=== PATIENT | female | born 1965 | race African-American/Black ===

== ENCOUNTER 2021-09-15 23:29 | Inpatient (IN) | payer OTHER, SELFPAY ==
[2021-09-15 23:26] VITALS: BP 180/91; PULSE 80
[2021-09-15 23:43] VITALS: BP 184/88; PULSE 92; RESP 16; TEMP 36.4; O2SAT 98
[2021-09-15 23:51] VITALS: BMI 32.8
--- NOTE | 2021-09-16 02:03 | PC.ADMIT ---
the patient is a 56 yr female transfer from [facility] emergency dept where she has been an active bed search. racquel has a hx of schizophrenia. she is a poor historian. the pt was admitted to ed on 09-08-21 after her home health nurse became concerned that racquel had an altered mental status and waas htn. her sbp was found to be in the 220s mmhg at that time. the pt also was confused and informed ems staff arriving at her home that someone had come into her house and killed her mother. in fact, pt lives alone with services. during her stay at [facility], pt has exhibited delusional thought content and has made several suicide ideation statements. racquel was evaluated by psychiatry who felt that she experiencing delirium superimposed on schizoaffective disorder. a ct of her brain was performed which showed no acute findings. racquel lives alone with services. she has a almonte order in place that was been renewed in August 2021. on arrival, racquel is recumbent on the ems stretcher. the c-v form is read to her and she verbally expresses a comprehension of the form. racquel can verbalize words which are totally out of context. i asked her what month we were in and she repeatly said the word pen. her affect is flat and withdrawn. with 2 assists she was assisted to the bathroom using a walker. her lower legs are weakened and her gait is unsteady. she will be a high fall risk. she has a pale complexion. she has 2 areas of skin break down which would be stage 2 of her left buttock and right buttock. resp effort is regular unlabored. 2 consecutive b/ps are in the 180'mmhg. protective services case worker gema brian notified of htn. clonidine 0.2 mg po given. abdomen protuberant/soft. pt has been incontinent of stool. perirectal care rendered. pt did void in the bathroom.
[2021-09-16] MEDS: cloNIDine HCL 0.2 MG TABLET PO (04:08)
[2021-09-16 08:40] VITALS: BP 131/67; PULSE 93; RESP 18; TEMP 36.6; O2SAT 97
[2021-09-16 08:47] LABS: Glucose, Whole Blood 140 mg/dL (60-115)
[2021-09-16] MEDS: Metoprolol Tartrate 50 MG TABLET PO (09:13)
[2021-09-16] MEDS: lisinopriL 40 MG TABLET PO (09:13)
[2021-09-16] MEDS: metFORMIN HCl 1,000 MG TABLET 1000 MG PO ×2 (09:13→17:51)
[2021-09-16] MEDS: Atorvastatin Calcium 20 MG TABLET PO (09:13)
[2021-09-16] MEDS: Perphenazine 8 MG TABLET PO (09:13)
[2021-09-16] MEDS: Aspirin Enteric Coated 81 MG TABLET.DR PO (09:14)
--- NOTE | 2021-09-16 11:05 | HO.PM.IMCN ---
History of Present Illness Data of Consult Service Date: 09/16/21 Primary Care Provider: Gregoria Chu NP HPI Reason for consult: Diabetes, HTN management. 56 year old female with Diabetes insulin dependent, HTN on Lisinopril and Metoprolol, HLD controlled with Lipitor and Schizophrenia. He is admitted from [facility] to Psych unit here for decompensation with psychosis and presently parnoid, confused and Psychtic thought. He is a rather unreliable historian at this moment. He voices no acute medical issues however Review of Systems Review of Systems: denies chest pain, no sob. Unable to get additional info due to psychotic state/ [facility] Medical History (Updated 09/16/21 @ 11:12 by Adalid Valerio MD) Diabetes HLD (hyperlipidemia) HTN (hypertension) Schizophrenia Social History Currently Displaying Signs/Symptoms of Drug Intoxication Withdrawal: No Advance Directives: No Advance Directives Information Provided: No Do you have thoughts of harming others: Vague Do you have a plan to hurt others: No Plan Meds Allergies Allergy/AdvReac Type Severity Reaction Status Date / Time Sulfa (Sulfonamide Allergy Unknown UNKNOWN Verified 09/15/21 23:47 Antibiotics) [SULFA (SULFONAMIDE ANTIBIOTICS)] Active Medications: Current Medications Acetaminophen (Acetaminophen 325 Mg Tablet) 650 mg PO Q6H PRN PRN Reason: Headache/Pain Mild Scale (1-3) Al Hydroxide/Mg Hydroxide (Magnesium Hydrox/Alum Hydrox 30 Ml Oral.Susp) 30 ml PO Q6H PRN PRN Reason: Heartburn/Nausea Aspirin (Aspirin Enteric Coated 81 Mg Tablet.) 81 mg PO DAILY [facility] Last Admin: 09/16/21 09:14 Dose: 81 mg Documented by: Atorvastatin Calcium (Atorvastatin Calcium 20 Mg Tablet) 20 mg PO DAILY [facility] Last Admin: 09/16/21 09:13 Dose: 20 mg Documented by: Benztropine Mesylate (Benztropine Mesylate 0.5 Mg Tablet) 0.5 mg PO BEDTIME [facility] Clozapine (Clozapine 100 Mg Tablet) 300 mg PO BEDTIME [facility] Divalproex Sodium (Divalproex Sodium Er 250 Mg Tab.Er.24h) 750 mg PO BEDTIME [facility] Hydroxyzine HCl (Hydroxyzine Hcl 25 Mg Tablet) 25 mg PO Q6H PRN PRN Reason: Anxiety Insulin Glargine (Insulin Glargine,Hum.Rec.Anlog 100 Unit/Ml 10 Ml Vial) 50 unit SUBCUT BEDTIME [facility] Lisinopril (Lisinopril 40 Mg Tablet) 40 mg PO DAILY [facility]; Protocol Last Admin: 09/16/21 09:13 Dose: 40 mg Documented by: Magnesium Hydroxide (Milk Of Magnesia 30 Ml Oral.Susp) 30 ml PO DAILY PRN PRN Reason: Constipation Metformin HCl (Metformin Hcl 1,000 Mg Tablet) 1,000 mg PO BIDWM [facility] Last Admin: 09/16/21 09:13 Dose: 1,000 mg Documented by: Metoprolol Tartrate (Metoprolol Tartrate 100 Mg Tablet) 100 mg PO BEDTIME [facility]; Protocol Metoprolol Tartrate (Metoprolol Tartrate 50 Mg Tablet) 50 mg PO DAILY [facility]; Protocol Last Admin: 09/16/21 09:13 Dose: 50 mg Documented by: Oxybutynin Chloride (Oxybutynin Chloride Er 5 Mg Tab.Er.24) 5 mg PO DAILY [facility] Last Admin: 09/16/21 09:13 Dose: 5 mg Documented by: Perphenazine (Perphenazine 8 Mg Tablet) 8 mg PO DAILY [facility] Last Admin: 09/16/21 09:13 Dose: 8 mg Documented by: Polyethylene Glycol (Polyethylene Glycol 3350 17 Gm Powd.Pack) 17 gm PO DAILY [facility] Last Admin: 09/16/21 09:17 Dose: Not Given Documented by: Trazodone HCl (Trazodone Hcl 50 Mg Tablet) 50 mg PO BEDTIME PRN PRN Reason: Insomnia Home Medications Medication Instructions Recorded Confirmed Last Taken Type aspirin 81 mg tablet,delayed 81 mg PO DAILY 09/16/21 09/16/21 09/15/21 08:25 History release atorvastatin 20 mg tablet 20 mg PO DAILY 09/16/21 09/16/21 09/15/21 08:25 History benztropine 0.5 mg tablet 0.5 mg PO BEDTIME 09/16/21 09/16/21 09/15/21 21:25 History clozapine 200 mg tablet 300 mg PO BEDTIME 09/16/21 09/16/21 09/15/21 21:25 History divalproex 500 mg PO BEDTIME 09/16/21 09/16/21 09/15/21 21:25 History divalproex 250 mg tablet,extended 250 mg PO BEDTIME 09/16/21 09/16/2122 21:25 History release 24 hr insulin glargine 50 unit SUBCUT DAILY 09/16/21 09/16/21 09/09/21 10:15 History 50 lisinopril 40 mg tablet (Zestril) 40 mg PO DAILY 09/16/21 09/16/21 09/15/21 08:25 History metformin 1,000 mg tablet 1,000 mg PO BID 09/16/21 09/16/21 09/15/21 17:15 History metoprolol tartrate 100 mg PO BEDTIME 09/16/21 09/16/21 09/15/21 21:25 History metoprolol tartrate 50 mg tablet 50 mg PO DAILY 09/16/21 09/16/21 09/15/21 08:25 History oxybutynin chloride 5 mg tablet 5 mg PO DAILY 09/16/21 09/16/21 09/15/21 08:25 History perphenazine 8 mg tablet 8 mg PO DAILY 09/16/21 09/16/21 09/15/21 08:25 History polyethylene glycol 3350 17 gram 17 g PO DAILY 09/16/21 09/16/21 09/15/21 08:25 History oral powder packet Physical Exam Vital Signs and Narrative: Vital Signs: Last Vital Signs Temp 97.5 F 09/15/21 23:43 Pulse 92 09/15/21 23:43 Resp 16 09/15/21 23:43 BP 184/88 H 09/15/21 23:43 Pulse Ox 98 09/15/21 23:43 BMI result Body Mass Index 32.8 Const: Other: Constitutional: Alert, in no distress, overweight. Mental Status: Oriented to person, place and time. Eyes: Pupils are equal, round and reactive to light. Ear, Nose and Throat: Oropharynx clear, mucous membranes moist. Ears and nose without eformities. Trachea midline. Respiratory: Clear to auscultation. No wheezing, rales or rhonchi. Cardiovascular: S1 S2 regular. No murmurs, rubs or gallops. Gastrointestinal: Abdomen soft, non-tender, non-distended. Normal bowel sounds.? Neurologic: Cranial nerves II-XII grossly intact. No focal neurological deficits. Moves all extremities spontaneously.?Oriented to self only Skin: No rashes or lesions.? Musculoskeletal: No cyanosis or clubbing. Psychiatric: Normal mood and affect? Results Labs Labs: Laboratory Results - last 24 hr 09/16/21 08:42 POC Glucose 140 H Assessment and Plan (1) Schizophrenia: Status: Acute (2) HLD (hyperlipidemia): Status: Acute (3) Diabetes: Status: Acute (4) HTN (hypertension): Status: Acute Plan 56 year old male with HTN, HLD, diabetes, Schizophrenia here with active Psychosis 1/HTN--continue Lisinopril and Metorpool and follow blood pressure 2/ Diabetes --continue Metfromin, Lantus and add SSI 3/HLD--Lipitor 4/Schizophrenia/Psychosis--management by Psych Will follow on PRN basis
[2021-09-16 11:56] LABS: Glucose, Whole Blood 100 mg/dL (60-115)
--- NOTE | 2021-09-16 15:27 | P.HPPS_ITS ---
HPI Date of Service: 09/16/21 Chief Complaint: schizophrenia Sources of Information: patient interviewed and chart reviewed HPI Subjective Notes: Peoples Order and Conditional Voluntary Narrative: patient was at [facility] prior to transfer to [place] for psychiatric admission. NOted Peoples order in place. Blood sugar levels have been varied and noted hospitalist evaluation. Does have stage II pressure sores on buttock areas and same being dressed. Self-care poor and incontinence. Patient today reports feeling like she is shrinking. Then stated rodrick I am not. Did endorse hallucinations but then making illogical statements about being at home 1 month ago and that she has been traveling in circles since. Very concrete and guarded throughout interview. Reports living alone. Reports having visiting nurse services. Reports being adherent with medications also monthly blood draws for clozapine. Was unable to explain how medications might be helpful or why they were being prescribed. How she got to the ED at [facility] reports somebody must have called and she did not know. Reported feeling safe in the hospital. Adamantly denies suicidal thoughts or history of suicide attempts. Regarding substances reported 21 years of sobriety from crack cocaine. 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 Unable to clarify who her psychiatric service providers were. Noted medication list from [facility] included metoprolol 100 mg, perphenazine 8 mg, Clozaril 300 mg at bedtime, Depakote 750 mg at bedtime, Cogentin 0.5 mg at bedtime, aspirin 81 mg, lisinopril 40 mg daily, metformin 1000 mg twice daily, insulin glargine 50 mg daily Lab work and CT scan unremarkable Past Psychiatric History: See above Medical Evaluation Reviewed: Yes [facility] Medical History (Updated 09/16/21 @ 11:12 by Adalid Valerio MD) Diabetes HLD (hyperlipidemia) HTN (hypertension) Schizophrenia Social History: lives alone. May have visiting nurse services. Substance History: Twenty-one years sober from crack cocaine Diagnostics Vital Signs (24Hr): Vital Signs - 24 hr 09/15/21 23:26 09/15/21 23:43 09/16/21 08:40 Temperature 97.5 F 97.9 F Pulse Rate 80 92 93 Respiratory Rate 16 18 Blood Pressure 180/91 H 184/88 H 131/67 Pulse Oximetry 98 97 BMI result Body Mass Index 32.8 Labs Labs: Laboratory Results - last 48 hr 09/16/21 09/16/21 08:42 11:52 POC Glucose 140 H 100 Meds/Allergies Meds Home Medications Acetaminophen (Acetaminophen 325 Mg Tablet) 650 mg PO Q6H PRN PRN Reason: Headache/Pain Mild Scale (1-3) Al Hydroxide/Mg Hydroxide (Magnesium Hydrox/Alum Hydrox 30 Ml Oral.Susp) 30 ml PO Q6H PRN PRN Reason: Heartburn/Nausea Aspirin (Aspirin Enteric Coated 81 Mg Tablet.) 81 mg PO DAILY [facility] Last Admin: 09/16/21 09:14 Dose: 81 mg Documented by: Atorvastatin Calcium (Atorvastatin Calcium 20 Mg Tablet) 20 mg PO DAILY [facility] Last Admin: 09/16/21 09:13 Dose: 20 mg Documented by: Benztropine Mesylate (Benztropine Mesylate 0.5 Mg Tablet) 0.5 mg PO BEDTIME [facility] Clozapine (Clozapine 100 Mg Tablet) 300 mg PO BEDTIME [facility] Divalproex Sodium (Divalproex Sodium Er 250 Mg Tab.Er.24h) 750 mg PO BEDTIME [facility] Hydroxyzine HCl (Hydroxyzine Hcl 25 Mg Tablet) 25 mg PO Q6H PRN PRN Reason: Anxiety Insulin Glargine (Insulin Glargine,Hum.Rec.Anlog 100 Unit/Ml 10 Ml Vial) 50 unit SUBCUT BEDTIME [facility] Insulin Human Lispro (Insulin Lispro 100 Unit/Ml 3 Ml Vial) 0 unit SUBCUT QIDACHS [facility]; Protocol Last Admin: 09/16/21 12:42 Dose: Not Given Documented by: Lisinopril (Lisinopril 40 Mg Tablet) 40 mg PO DAILY [facility]; Protocol Last Admin: 09/16/21 09:13 Dose: 40 mg Documented by: Magnesium Hydroxide (Milk Of Magnesia 30 Ml Oral.Susp) 30 ml PO DAILY PRN PRN Reason: Constipation Metformin HCl (Metformin Hcl 1,000 Mg Tablet) 1,000 mg PO BIDWM [facility] Last Admin: 09/16/21 09:13 Dose: 1,000 mg Documented by: Metoprolol Tartrate (Metoprolol Tartrate 100 Mg Tablet) 100 mg PO BEDTIME [facility]; Protocol Metoprolol Tartrate (Metoprolol Tartrate 50 Mg Tablet) 50 mg PO DAILY [facility]; Protocol Last Admin: 09/16/21 09:13 Dose: 50 mg Documented by: Oxybutynin Chloride (Oxybutynin Chloride Er 5 Mg Tab.Er.24) 5 mg PO DAILY [facility] Last Admin: 09/16/21 09:13 Dose: 5 mg Documented by: Perphenazine (Perphenazine 8 Mg Tablet) 8 mg PO DAILY [facility] Last Admin: 09/16/21 09:13 Dose: 8 mg Documented by: Polyethylene Glycol (Polyethylene Glycol 3350 17 Gm Powd.Pack) 17 gm PO DAILY [facility] Last Admin: 09/16/21 09:17 Dose: Not Given Documented by: Trazodone HCl (Trazodone Hcl 50 Mg Tablet) 50 mg PO BEDTIME PRN PRN Reason: Insomnia Allergies Allergies Allergy/AdvReac Type Severity Reaction Status Date / Time Sulfa (Sulfonamide Allergy Unknown UNKNOWN Verified 09/15/21 23:47 Antibiotics) [SULFA (SULFONAMIDE ANTIBIOTICS)] Mental Status Exam Mental Status Exam Narrative: in bed. Hospital clothing. Self-care is limited. Flat affect. Is alert and oriented but internally preoccupied and guarded. No SI or HI evident. Insight and judgment appear limited Assessment & Plan Assessment & Plan (1) Schizophrenia: Status: Acute Code(s): F20.9 - Schizophrenia, unspecified Assessment and Plan: presents with hallucinations and delusions and decompensation inability to care for self. Unclear circumstances around same. Continue home medications, Including clozapine 300 mg, perphenazine 8 mg daily, Depakote 750 mg at bedtime and Cogentin 0.5. Attempt to gather collateral from community providers during week days with primary team. Blood sugar management as per hospitalist evaluation. Patient educated on: diagnosis, therapeutic strategies and medical condition Reason for continued inpatient stay Substantial Risk for: inability to function
[2021-09-16 16:47] LABS: Cholesterol 121 mg/dL; HDL Cholesterol 30 mg/dL; LDL Cholesterol Calculated 69 mg/dl; Magnesium 1.6 mg/dL (1.6-2.6); Triglycerides 114 mg/dL
[2021-09-16 16:51] LABS: Estimated Average Glucose 120 mg/dL; Hemoglobin A1c % 5.8 %
[2021-09-16 17:00] LABS: Glucose, Whole Blood 111 mg/dL (60-115)
[2021-09-16 17:07] LABS: Thyroid Stimulating Hormone 1.94 uIU/mL (0.32-4.0)
[2021-09-16 18:00] VITALS: BP 146/68; PULSE 90; RESP 16; TEMP 36.1; O2SAT 100
[2021-09-16 20:45] LABS: Glucose, Whole Blood 113 mg/dL (60-115)
[2021-09-16] MEDS: cloZAPine 100 MG TABLET 300 MG PO (21:01)
[2021-09-16] MEDS: Benztropine Mesylate 0.5 MG TABLET PO (21:02)
[2021-09-16] MEDS: Divalproex Sodium ER 250 MG TAB.ER.24H 750 MG PO (21:02)
[2021-09-16] MEDS: Insulin Glargine,Hum.rec.anlog 100 UNIT/ML 10 ML VIAL 50 UNIT SUBCUT (21:04)
[2021-09-16] MEDS: Metoprolol Tartrate 100 MG TABLET PO (21:19)
--- NOTE | 2021-09-16 21:44 | PC.NURSE ---
pt has experienced multiple episodes of fecal incontinence. she has been resistant to perirectal hygiene care. she has been agitated and delusional at times. while seated on the toilet, she is having one way conversation with her friend . she has made sexual overtures to male staff. despite resistance from pt, local care has been repeatedly rendered. she has taken a defensive posture with clenched fists and screaming at staff. with calm direct reassurance, pt settled in and hopefully will sleep. her poc is 114. she has been given her scheduled lantus insulin 50 units sc. she has refused snack. pts b/p 146/68. will monitor for any signs of hypoglycemia.
[2021-09-17 08:00] VITALS: BP 141/75; PULSE 80; RESP 16; TEMP 35.8; O2SAT 97
[2021-09-17 08:16] LABS: Glucose, Whole Blood 43 mg/dL (60-115)
[2021-09-17] MEDS: Perphenazine 8 MG TABLET PO (08:28)
[2021-09-17] MEDS: Metoprolol Tartrate 50 MG TABLET PO (08:28)
[2021-09-17] MEDS: Atorvastatin Calcium 20 MG TABLET PO (08:28)
[2021-09-17] MEDS: Aspirin Enteric Coated 81 MG TABLET.DR PO (08:29)
[2021-09-17] MEDS: lisinopriL 40 MG TABLET PO (08:29)
[2021-09-17 08:46] LABS: Glucose, Whole Blood 78 mg/dL (60-115)
--- NOTE | 2021-09-17 08:53 | PC.NURSE ---
Pt signed a three day notice today, stated I don't need to be here, I want to go home .
[2021-09-17] MEDS: metFORMIN HCl 1,000 MG TABLET 1000 MG PO ×2 (09:20→17:19)
--- NOTE | 2021-09-17 11:52 | HO.PSYCHPN ---
Subjective Subjective Date of Service: 09/17/21 Reason For Visit: schizophrenia Subjective Notes: 3 Day Medical Problems Affecting Mental Status: No Interim History: Discussed with nursing. Internally preoccupied. Loose stool at night. Upset at diabetic diet. Submitted 3 day notice. Today with investment underwriter is on the unit phone stating she is listening a recording of herself. Reports she wants discharge so she can go to [place] and have a meal. L[employer] preoccupation and stating family are the devil and wants discharge within one week. Medication Compliance: Yes Side effects from medications: No Attending Groups: No Review of Systems Acute medical concerns: No Review of Systems Review of Systems unremarkable Mental Status Exam Mental Status Exam Narrative: in day area.? Hospital clothing.? Self-care is limited.? ?Elated affect and some irritability. Is alert and oriented but internally preoccupied and guarded. ? No SI or HI evident.? Insight and judgment appear limited Diagnostics Vital Signs (24Hr): Vital Signs - 24 hr 09/16/21 18:00 09/17/21 08:00 Temperature 97 F 96.4 F L Pulse Rate 90 80 Respiratory Rate 16 16 Blood Pressure 146/68 H 141/75 H Pulse Oximetry 100 97 BMI result Body Mass Index 32.8 Labs Labs: Laboratory Results - last 48 hr 09/16/21 09/16/21 09/16/21 08:42 11:52 16:22 POC Glucose 140 H 100 Estimat Average Glucose Hemoglobin A1c % Magnesium 1.6 Triglycerides 114 Cholesterol 121 LDL Cholesterol, Calc 69 HDL Cholesterol 30 TSH 1.94 09/16/21 09/16/21 09/16/21 16:22 16:55 20:34 POC Glucose 111 113 Estimat Average Glucose 120 Hemoglobin A1c % 5.8 Magnesium Triglycerides Cholesterol LDL Cholesterol, Calc HDL Cholesterol TSH 09/17/21 09/17/21 08:10 08:41 POC Glucose 43 L* 78 Estimat Average Glucose Hemoglobin A1c % Magnesium Triglycerides Cholesterol LDL Cholesterol, Calc HDL Cholesterol TSH Medications Medications Current Medications Acetaminophen (Acetaminophen 325 Mg Tablet) 650 mg PO Q6H PRN PRN Reason: Headache/Pain Mild Scale (1-3) Al Hydroxide/Mg Hydroxide (Magnesium Hydrox/Alum Hydrox 30 Ml Oral.Susp) 30 ml PO Q6H PRN PRN Reason: Heartburn/Nausea Aspirin (Aspirin Enteric Coated 81 Mg Tablet.) 81 mg PO DAILY [facility] Last Admin: 09/17/21 08:29 Dose: 81 mg Documented by: Atorvastatin Calcium (Atorvastatin Calcium 20 Mg Tablet) 20 mg PO DAILY [facility] Last Admin: 09/17/21 08:28 Dose: 20 mg Documented by: Benztropine Mesylate (Benztropine Mesylate 0.5 Mg Tablet) 0.5 mg PO BEDTIME [facility] Last Admin: 09/16/21 21:02 Dose: 0.5 mg Documented by: Clozapine (Clozapine 100 Mg Tablet) 300 mg PO BEDTIME [facility] Last Admin: 09/16/21 21:01 Dose: 300 mg Documented by: Divalproex Sodium (Divalproex Sodium Er 250 Mg Tab.Er.24h) 750 mg PO BEDTIME [facility] Last Admin: 09/16/21 21:02 Dose: 750 mg Documented by: Hydroxyzine HCl (Hydroxyzine Hcl 25 Mg Tablet) 25 mg PO Q6H PRN PRN Reason: Anxiety Insulin Glargine (Insulin Glargine,Hum.Rec.Anlog 100 Unit/Ml 10 Ml Vial) 50 unit SUBCUT BEDTIME [facility] Last Admin: 09/16/21 21:04 Dose: 50 unit Documented by: Insulin Human Lispro (Insulin Lispro 100 Unit/Ml 3 Ml Vial) 0 unit SUBCUT QIDACHS [facility]; Protocol Last Admin: 09/17/21 08:31 Dose: Not Given Documented by: Lisinopril (Lisinopril 40 Mg Tablet) 40 mg PO DAILY [facility]; Protocol Last Admin: 09/17/21 08:29 Dose: 40 mg Documented by: Magnesium Hydroxide (Milk Of Magnesia 30 Ml Oral.Susp) 30 ml PO DAILY PRN PRN Reason: Constipation Metformin HCl (Metformin Hcl 1,000 Mg Tablet) 1,000 mg PO BIDWM [facility] Last Admin: 09/17/21 09:20 Dose: 1,000 mg Documented by: Metoprolol Tartrate (Metoprolol Tartrate 100 Mg Tablet) 100 mg PO BEDTIME [facility]; Protocol Last Admin: 09/16/21 21:19 Dose: 100 mg Documented by: Metoprolol Tartrate (Metoprolol Tartrate 50 Mg Tablet) 50 mg PO DAILY [facility]; Protocol Last Admin: 09/17/21 08:28 Dose: 50 mg Documented by: Oxybutynin Chloride (Oxybutynin Chloride Er 5 Mg Tab.Er.24) 5 mg PO DAILY [facility] Last Admin: 09/17/21 08:29 Dose: 5 mg Documented by: Perphenazine (Perphenazine 8 Mg Tablet) 8 mg PO DAILY [facility] Last Admin: 09/17/21 08:28 Dose: 8 mg Documented by: Polyethylene Glycol (Polyethylene Glycol 3350 17 Gm Powd.Pack) 17 gm PO DAILY [facility] Last Admin: 09/17/21 09:28 Dose: Not Given Documented by: Trazodone HCl (Trazodone Hcl 50 Mg Tablet) 50 mg PO BEDTIME PRN PRN Reason: Insomnia Allergies Allergies Allergy/AdvReac Type Severity Reaction Status Date / Time Sulfa (Sulfonamide Allergy Unknown UNKNOWN Verified 09/15/21 23:47 Antibiotics) [SULFA (SULFONAMIDE ANTIBIOTICS)] Assessment & Plan Assessment & Plan (1) Schizophrenia: Status: Acute Code(s): F20.9 - Schizophrenia, unspecified Assessment and Plan: presents with hallucinations and delusions and decompensation inability to care for self. Unclear circumstances around same. Continue home medications, Including clozapine 300 mg, perphenazine 8 mg daily, Depakote 750 mg at bedtime and Cogentin 0.5. Attempt to gather collateral from community providers during week days with primary team. Blood sugar management as per hospitalist evaluation. 09/17: no changes to current home meds. Review after collateral from community providers I spent minutes with the patient and/or on the patient floor today, greater than?50% of which was spent counseling/coordinating care. Reason for contiued inpatient stay Substantial Risk for: inability to function
[2021-09-17 12:04] LABS: Glucose, Whole Blood 121 mg/dL (60-115)
[2021-09-17] MEDS: Loperamide HCl 2 MG CAPSULE 4 MG PO (12:46)
[2021-09-17] MEDS: Loperamide HCl 2 MG CAPSULE PO ×2 (16:09→21:28)
[2021-09-17 17:35] LABS: Glucose, Whole Blood 79 mg/dL (60-115)
[2021-09-17 20:25] LABS: Glucose, Whole Blood 105 mg/dL (60-115)
[2021-09-17] MEDS: Insulin Glargine,Hum.rec.anlog 100 UNIT/ML 10 ML VIAL 50 UNIT SUBCUT (20:39)
[2021-09-17] MEDS: Metoprolol Tartrate 100 MG TABLET PO (20:40)
[2021-09-17] MEDS: Divalproex Sodium ER 250 MG TAB.ER.24H 750 MG PO (20:41)
[2021-09-17] MEDS: Benztropine Mesylate 0.5 MG TABLET PO (20:41)
[2021-09-17] MEDS: cloZAPine 100 MG TABLET 300 MG PO (20:41)
[2021-09-17 20:50] VITALS: BP 117/65; PULSE 93; RESP 16; TEMP 36.3; O2SAT 99
[2021-09-18 07:05] LABS: Glucose, Whole Blood 28 mg/dL (60-115)
[2021-09-18] MEDS: Loperamide HCl 2 MG CAPSULE PO (07:42)
[2021-09-18 08:00] VITALS: BP 145/107; PULSE 88; RESP 16; TEMP 35.8; O2SAT 98
[2021-09-18 08:03] LABS: Glucose, Whole Blood 99 mg/dL (60-115)
[2021-09-18 08:08] LABS: Neut%MD 75.1 %; Neutrophils Absolute Auto 10.3 x10*3/uL (2.0-8.3); WBCANC 13.7 X10*3/uL
[2021-09-18] MEDS: Atorvastatin Calcium 20 MG TABLET PO (08:26)
[2021-09-18] MEDS: lisinopriL 40 MG TABLET PO (08:26)
[2021-09-18] MEDS: Aspirin Enteric Coated 81 MG TABLET.DR PO (08:26)
[2021-09-18] MEDS: Metoprolol Tartrate 50 MG TABLET PO (08:26)
[2021-09-18] MEDS: metFORMIN HCl 1,000 MG TABLET 1000 MG PO ×2 (08:26→18:03)
[2021-09-18] MEDS: Perphenazine 8 MG TABLET PO (08:26)
[2021-09-18 10:39] LABS: Vitamin B12 307 pg/mL (200-900)
[2021-09-18 12:13] LABS: Glucose, Whole Blood 121 mg/dL (60-115)
[2021-09-18 13:14] VITALS: BMI 32.8
--- NOTE | 2021-09-18 14:53 | HO.PSYCHPN ---
Subjective Subjective Date of Service: 09/18/21 Reason For Visit: schizophrenia Subjective Notes: Conditional Voluntary and 3 Day Interim History: The nursing staff reported the patient signed a 3 day notice yesterday in the afternoon. The patient reports chronic auditory hallucinations and she stated that she is paranoid against the worker that came to her home and brought her into the hospital by ambulance. Today, the nursing staff reported the patient had diarrhea and her fasting blood sugars were very low. On interview the patient reported that her blood sugar went down, she recognized me since I used to treat her as an outpatient several years ago and she stated that she is taking her medications and she wants to go back home. She gave us permission to contact her [facility] case worker, [facility] and other outpatient providers. She wants to be discharged as soon as possible, she states that she is fully compliant with her treatment. Mental Status Exam Mental Status Exam Patient Appearance: Appropriate Patient Orientation: Person and Situation Level of Consciousness: Awake Patient Behavior: Talkative and Cooperative Mood Description: Cheerful and Anxious Affect Description: Labile Patient Cognition Impaired: No Ability to Follow Directions: Good Speech Pattern: Clear Hallucinations: Auditory ( Chronic auditory hallucinations with derogatory content) Delusions: Paranoid Ideation Thought Process: Distracted Thought Content: positive for [place] and positive for Circumstantial Judgement: Fair Diagnostics Vital Signs (24Hr): Vital Signs - 24 hr 09/17/21 20:50 09/18/21 08:00 Temperature 97.4 F 96.5 F L Pulse Rate 93 88 Respiratory Rate 16 16 Blood Pressure 117/65 145/107 H Pulse Oximetry 99 98 BMI result Body Mass Index 32.8 Labs Labs: Laboratory Results - last 48 hr 09/16/21 09/16/21 09/16/21 16:22 16:22 16:22 Absolute Neuts (auto) POC Glucose Estimat Average Glucose 120 Hemoglobin A1c % 5.8 Magnesium 1.6 Triglycerides 114 Cholesterol 121 LDL Cholesterol, Calc 69 HDL Cholesterol 30 Vitamin B12 307 Folate 12.0 TSH 1.94 09/16/21 09/16/21 09/17/21 16:55 20:34 08:10 Absolute Neuts (auto) POC Glucose 111 113 43 L* Estimat Average Glucose Hemoglobin A1c % Magnesium Triglycerides Cholesterol LDL Cholesterol, Calc HDL Cholesterol Vitamin B12 Folate TSH 09/17/21 09/17/21 09/17/21 08:41 12:00 17:21 Absolute Neuts (auto) POC Glucose 78 121 H 79 Estimat Average Glucose Hemoglobin A1c % Magnesium Triglycerides Cholesterol LDL Cholesterol, Calc HDL Cholesterol Vitamin B12 Folate TSH 09/17/21 09/18/21 09/18/21 20:17 06:58 07:42 Absolute Neuts (auto) POC Glucose 105 28 L* 99 Estimat Average Glucose Hemoglobin A1c % Magnesium Triglycerides Cholesterol LDL Cholesterol, Calc HDL Cholesterol Vitamin B12 Folate TSH 09/18/21 09/18/21 07:58 12:09 Absolute Neuts (auto) 10.3 H POC Glucose 121 H Estimat Average Glucose Hemoglobin A1c % Magnesium Triglycerides Cholesterol LDL Cholesterol, Calc HDL Cholesterol Vitamin B12 Folate TSH Medications Medications Current Medications Acetaminophen (Acetaminophen 325 Mg Tablet) 650 mg PO Q6H PRN PRN Reason: Headache/Pain Mild Scale (1-3) Al Hydroxide/Mg Hydroxide (Magnesium Hydrox/Alum Hydrox 30 Ml Oral.Susp) 30 ml PO Q6H PRN PRN Reason: Heartburn/Nausea Aspirin (Aspirin Enteric Coated 81 Mg Tablet.) 81 mg PO DAILY [facility] Last Admin: 09/18/21 08:26 Dose: 81 mg Documented by: Atorvastatin Calcium (Atorvastatin Calcium 20 Mg Tablet) 20 mg PO DAILY [facility] Last Admin: 09/18/21 08:26 Dose: 20 mg Documented by: Benztropine Mesylate (Benztropine Mesylate 0.5 Mg Tablet) 0.5 mg PO BEDTIME [facility] Last Admin: 09/17/21 20:41 Dose: 0.5 mg Documented by: Clozapine (Clozapine 100 Mg Tablet) 300 mg PO BEDTIME [facility] Last Admin: 09/17/21 20:41 Dose: 300 mg Documented by: Divalproex Sodium (Divalproex Sodium Er 250 Mg Tab.Er.24h) 750 mg PO BEDTIME [facility] Last Admin: 09/17/21 20:41 Dose: 750 mg Documented by: Hydroxyzine HCl (Hydroxyzine Hcl 25 Mg Tablet) 25 mg PO Q6H PRN PRN Reason: Anxiety Insulin Glargine (Insulin Glargine,Hum.Rec.Anlog 100 Unit/Ml 10 Ml Vial) 50 unit SUBCUT BEDTIME [facility] Last Admin: 09/17/21 20:39 Dose: 50 unit Documented by: Insulin Human Lispro (Insulin Lispro 100 Unit/Ml 3 Ml Vial) 0 unit SUBCUT QIDACHS [facility]; Protocol Last Admin: 09/18/21 13:03 Dose: Not Given Documented by: Lisinopril (Lisinopril 40 Mg Tablet) 40 mg PO DAILY [facility]; Protocol Last Admin: 09/18/21 08:26 Dose: 40 mg Documented by: Loperamide HCl (Loperamide Hcl 2 Mg Capsule) 2 mg PO Q4H PRN PRN Reason: Diarrhea Last Admin: 09/18/21 07:42 Dose: 2 mg Documented by: Magnesium Hydroxide (Milk Of Magnesia 30 Ml Oral.Susp) 30 ml PO DAILY PRN PRN Reason: Constipation Metformin HCl (Metformin Hcl 1,000 Mg Tablet) 1,000 mg PO BIDWM [facility] Last Admin: 09/18/21 08:26 Dose: 1,000 mg Documented by: Metoprolol Tartrate (Metoprolol Tartrate 100 Mg Tablet) 100 mg PO BEDTIME [facility]; Protocol Last Admin: 09/17/21 20:40 Dose: 100 mg Documented by: Metoprolol Tartrate (Metoprolol Tartrate 50 Mg Tablet) 50 mg PO DAILY [facility]; Protocol Last Admin: 09/18/21 08:26 Dose: 50 mg Documented by: Oxybutynin Chloride (Oxybutynin Chloride Er 5 Mg Tab.Er.24) 5 mg PO DAILY [facility] Last Admin: 09/18/21 08:26 Dose: 5 mg Documented by: Perphenazine (Perphenazine 8 Mg Tablet) 8 mg PO DAILY [facility] Last Admin: 09/18/21 08:26 Dose: 8 mg Documented by: Polyethylene Glycol (Polyethylene Glycol 3350 17 Gm Powd.Pack) 17 gm PO DAILY [facility] Last Admin: 09/18/21 08:53 Dose: Not Given Documented by: Trazodone HCl (Trazodone Hcl 50 Mg Tablet) 50 mg PO BEDTIME PRN PRN Reason: Insomnia Allergies Allergies Allergy/AdvReac Type Severity Reaction Status Date / Time Sulfa (Sulfonamide Allergy Unknown UNKNOWN Verified 09/15/21 23:47 Antibiotics) [SULFA (SULFONAMIDE ANTIBIOTICS)] Assessment & Plan Assessment & Plan (1) Schizophrenia: Status: Acute Code(s): F20.9 - Schizophrenia, unspecified Assessment and Plan: presents with hallucinations and delusions and decompensation inability to care for self. Unclear circumstances around same. Continue home medications, Including clozapine 300 mg, perphenazine 8 mg daily, Depakote 750 mg at bedtime and Cogentin 0.5. Attempt to gather collateral from community providers during week days with primary team. Blood sugar management as per hospitalist evaluation. Plan The patient is an adult female who looks older than her stated age with a long history of schizophrenia, with several ancillary services such as [facility] case managing services, outpatient services, living independently with several as [facility] services. She was admitted for unclear reasons due to his chronic paranoia and chronic auditory hallucinations. plan 1. Depakote level, basic metabolic panel another lab for. 2. Consult to hospitalist to manage his diabetes and hypoglycemia. 3. Gather collateral information. I spent __20____ minutes with the patient and/or on the patient floor today, greater than?50% of which was spent counseling/coordinating care. Informed Consent: understands Reason for contiued inpatient stay Substantial Risk for: inability to function, rapid decompensation and med/psych decompensation
--- NOTE | 2021-09-18 15:10 | PM.EVENT ---
Event Note Date of Service: 09/18/21 Event Note: noted to have AM hypoglycemia, glargine decreased from 50 units to 25 units at bedtime, continue to monitor pocs
[2021-09-18 17:04] LABS: Glucose, Whole Blood 65 mg/dL (60-115)
[2021-09-18 21:25] LABS: Glucose, Whole Blood 71 mg/dL (60-115)
[2021-09-18] MEDS: Divalproex Sodium ER 250 MG TAB.ER.24H 750 MG PO (21:35)
[2021-09-18] MEDS: cloZAPine 100 MG TABLET 300 MG PO (21:35)
[2021-09-18] MEDS: Metoprolol Tartrate 100 MG TABLET PO (21:35)
[2021-09-18] MEDS: Benztropine Mesylate 0.5 MG TABLET PO (21:41)
[2021-09-19 06:00] VITALS: BP 165/84; PULSE 91; RESP 18; TEMP 36.1; O2SAT 99
[2021-09-19 07:05] LABS: Glucose, Whole Blood 153 mg/dL (60-115)
[2021-09-19] MEDS: metFORMIN HCl 1,000 MG TABLET 1000 MG PO (07:43)
[2021-09-19] MEDS: lisinopriL 40 MG TABLET PO (07:44)
[2021-09-19] MEDS: Atorvastatin Calcium 20 MG TABLET PO (07:44)
[2021-09-19] MEDS: Aspirin Enteric Coated 81 MG TABLET.DR PO (07:44)
[2021-09-19] MEDS: Metoprolol Tartrate 50 MG TABLET PO (07:45)
[2021-09-19] MEDS: Perphenazine 8 MG TABLET PO (07:45)
--- NOTE | 2021-09-19 08:18 | HO.PSYCHPN ---
Subjective Subjective Date of Service: 09/19/21 Reason For Visit: schizophrenia Subjective Notes: Conditional Voluntary Interim History: The nursing staff reported the patient was visible in the unit, compliant with treatment. She reported paranoid delusions but she was easily redirectable and most of the time, reality oriented. On interview, the patient wanted to get discharged as soon as possible But she has retracted 3 day notice because she does not feel medically okay. She reported that every a, even though the nurses has not reported loose stools. the social media coordinator reported that she contact several collateral members and apparently the patient was more dysfunctional the usual, her apartment was full of feces. We will contact her other providers in the community. The patient has lesions of her skin, related with the diarrhea that she had, not a pressure wound since the patient is very mobile. Mental Status Exam Mental Status Exam Patient Appearance: Appropriate Patient Orientation: Person and Situation Level of Consciousness: Appropriate Patient Behavior: Guarded and Suspicious Mood Description: Suspicious and Apprehensive Affect Description: Constricted Patient Cognition Impaired: No Ability to Follow Directions: Good Speech Pattern: Clear Hallucinations: Auditory Delusions: Paranoid Ideation Thought Process: Distracted Thought Content: positive for [place] and positive for [place] of Content Judgement: Fair Diagnostics Vital Signs (24Hr): BMI result Body Mass Index 32.8 Labs Results: 09/19/21 10:59 09/19/21 10:59 Labs: Laboratory Results - last 48 hr 09/16/21 09/17/21 09/17/21 16:22 08:41 12:00 Absolute Neuts (auto) POC Glucose 78 121 H Vitamin B12 307 Folate 12.0 09/17/21 09/17/21 09/18/21 17:21 20:17 06:58 Absolute Neuts (auto) POC Glucose 79 105 28 L* Vitamin B12 Folate 09/18/21 09/18/21 09/18/21 07:42 07:58 12:09 Absolute Neuts (auto) 10.3 H POC Glucose 99 121 H Vitamin B12 Folate 09/18/21 09/18/21 09/19/21 16:57 21:18 07:01 Absolute Neuts (auto) POC Glucose 65 71 153 H Vitamin B12 Folate Medications Medications Current Medications Acetaminophen (Acetaminophen 325 Mg Tablet) 650 mg PO Q6H PRN PRN Reason: Headache/Pain Mild Scale (1-3) Al Hydroxide/Mg Hydroxide (Magnesium Hydrox/Alum Hydrox 30 Ml Oral.Susp) 30 ml PO Q6H PRN PRN Reason: Heartburn/Nausea Aspirin (Aspirin Enteric Coated 81 Mg Tablet.Dr) 81 mg PO DAILY [facility] Last Admin: 09/19/21 07:44 Dose: 81 mg Documented by: Atorvastatin Calcium (Atorvastatin Calcium 20 Mg Tablet) 20 mg PO DAILY [facility] Last Admin: 09/19/21 07:44 Dose: 20 mg Documented by: Benztropine Mesylate (Benztropine Mesylate 0.5 Mg Tablet) 0.5 mg PO BEDTIME [facility] Last Admin: 09/18/21 21:41 Dose: 0.5 mg Documented by: Clozapine (Clozapine 100 Mg Tablet) 300 mg PO BEDTIME [facility] Last Admin: 09/18/21 21:35 Dose: 300 mg Documented by: Divalproex Sodium (Divalproex Sodium Er 250 Mg Tab.Er.24h) 750 mg PO BEDTIME [facility] Last Admin: 09/18/21 21:35 Dose: 750 mg Documented by: Hydroxyzine HCl (Hydroxyzine Hcl 25 Mg Tablet) 25 mg PO Q6H PRN PRN Reason: Anxiety Insulin Glargine (Insulin Glargine,Hum.Rec.Anlog 100 Unit/Ml 10 Ml Vial) 25 unit SUBCUT BEDTIME [facility] Last Admin: 09/18/21 21:40 Dose: Not Given Documented by: Insulin Human Lispro (Insulin Lispro 100 Unit/Ml 3 Ml Vial) 0 unit SUBCUT QIDACHS [facility]; Protocol Last Admin: 09/18/21 21:40 Dose: Not Given Documented by: Lisinopril (Lisinopril 40 Mg Tablet) 40 mg PO DAILY [facility]; Protocol Last Admin: 09/19/21 07:44 Dose: 40 mg Documented by: Loperamide HCl (Loperamide Hcl 2 Mg Capsule) 2 mg PO Q4H PRN PRN Reason: Diarrhea Last Admin: 09/18/21 07:42 Dose: 2 mg Documented by: Magnesium Hydroxide (Milk Of Magnesia 30 Ml Oral.Susp) 30 ml PO DAILY PRN PRN Reason: Constipation Metformin HCl (Metformin Hcl 1,000 Mg Tablet) 1,000 mg PO BIDWM [facility] Last Admin: 09/19/21 07:43 Dose: 1,000 mg Documented by: Metoprolol Tartrate (Metoprolol Tartrate 100 Mg Tablet) 100 mg PO BEDTIME [facility]; Protocol Last Admin: 09/18/21 21:35 Dose: 100 mg Documented by: Metoprolol Tartrate (Metoprolol Tartrate 50 Mg Tablet) 50 mg PO DAILY [facility]; Protocol Last Admin: 09/19/21 07:45 Dose: 50 mg Documented by: Oxybutynin Chloride (Oxybutynin Chloride Er 5 Mg Tab.Er.24) 5 mg PO DAILY [facility] Last Admin: 09/19/21 07:44 Dose: 5 mg Documented by: Perphenazine (Perphenazine 8 Mg Tablet) 8 mg PO DAILY [facility] Last Admin: 09/19/21 07:45 Dose: 8 mg Documented by: Polyethylene Glycol (Polyethylene Glycol 3350 17 Gm Powd.Pack) 17 gm PO DAILY [facility] Last Admin: 09/18/21 08:53 Dose: Not Given Documented by: Trazodone HCl (Trazodone Hcl 50 Mg Tablet) 50 mg PO BEDTIME PRN PRN Reason: Insomnia Allergies Allergies Allergy/AdvReac Type Severity Reaction Status Date / Time Sulfa (Sulfonamide Allergy Unknown UNKNOWN Verified 09/15/21 23:47 Antibiotics) [SULFA (SULFONAMIDE ANTIBIOTICS)] Assessment & Plan Assessment & Plan (1) Schizophrenia: Status: Acute Code(s): F20.9 - Schizophrenia, unspecified Assessment and Plan: presents with hallucinations and delusions and decompensation inability to care for self. Unclear circumstances around same. Continue home medications, Including clozapine 300 mg, perphenazine 8 mg daily, Depakote 750 mg at bedtime and Cogentin 0.5. Attempt to gather collateral from community providers during week days with primary team. Blood sugar management as per hospitalist evaluation. Plan The patient is an adult female who looks older than her stated age with a long history of schizophrenia, with several ancillary services such as [facility] case managing services, outpatient services, living independently with several as [facility] services. She was admitted for unclear reasons due to his chronic paranoia and chronic auditory hallucinations. plan 1. Depakote level, basic metabolic panel another lab for. 2. Consult to hospitalist to manage his diabetes and hypoglycemia. 3. Gather collateral information. 4. wound consult. I spent __20____ minutes with the patient and/or on the patient floor today, greater than?50% of which was spent counseling/coordinating care. Reason for contiued inpatient stay Substantial Risk for: inability to function, rapid decompensation and med/psych decompensation
[2021-09-19 11:12] LABS: MANUAL DIFF FLAG NO
[2021-09-19 11:19] LABS: Basophils Percent Auto 0.3 % (0-2); Eosinophils Absolute Auto 0.3 X10*3/uL (0.0-0.4); Eosinophils Percent Auto 3.2 % (0-4); Hematocrit 27.8 % (37.0-47.0); Hemoglobin 8.9 g/dl (12.0-16.0); Imm Gran Abs Auto 0.06 X10*3/uL (0.00-0.03); Imm Gran Pct Auto 0.6 % (0.0-0.4); Lymphocytes Absolute Auto 2.3 X10*3/uL (1.2-4.9); Mean Corpuscular Hemoglobin 28.5 pg (27.0-33.0); Mean Corpuscular Volume 89.1 fL (80.0-98.0); Mean Platelet Volume 10.9 fL (9.4-12.3); Monocytes Absolute Auto 0.6 X10*3/uL (0.1-1.2); Monocytes Percent Auto 5.6 % (2-11); Neutrophils Absolute Auto 6.7 x10*3/uL (2.0-8.3); Neutrophils Percent Auto 67.3 % (45-73); Platelet Count 255 X10*3/uL (160-400); Red Blood Count 3.12 X10*6/uL (4.20-5.50); Red Cell Distribution Width 12.8 % (11.0-16.0)
[2021-09-19 11:34] LABS: Estimated Average Glucose 123 mg/dL; Hemoglobin A1C 116.6896 umol/L; Hemoglobin A1c % 5.9 %
[2021-09-19 11:36] LABS: Alanine Aminotransferase 11 U/L (0-31); Albumin Level 3.6 g/dL (3.5-5.0); Alkaline Phosphatase 85 U/L (39-117); Anion Gap 15 (12-20); Aspartate Amino Transferase 20 U/L (5-31); Bilirubin Direct 0.2 mg/dL (0.0-0.5); Bilirubin Total 0.4 mg/dL (0.0-1.0); Blood Urea Nitrogen 13 mg/dL (9-16); Calcium 9.1 mg/dL (8.4-10.2); Carbon Dioxide 23 mmol/L (22-29); Chloride 105 mmol/L (96-108); Cholesterol 116 mg/dL; Creatinine Clr Calc Pharmacy 88.3; Estimated Glomerular Filt Rate > 60; Glucose Random 136 mg/dL (60-115); HDL Cholesterol 38 mg/dL; LDL Cholesterol Calculated 63 mg/dl; Sodium 139 mmol/L (135-145); Total Protein 6.6 g/dL (6.5-8.0); Triglycerides 76 mg/dL
[2021-09-19 11:44] LABS: Valproate 79.9 mcg/mL (50.0-100.0)
[2021-09-19 11:47] LABS: Glucose, Whole Blood 100 mg/dL (60-115)
[2021-09-19 11:54] LABS: Thyroid Stimulating Hormone 1.66 uIU/mL (0.32-4.0)
--- NOTE | 2021-09-19 14:24 | PC.NURSE ---
Pt. with areas of chemically excoriated skin on bilateral buttocks previously miscategorized as pressure ulcers. Pt. is fully mobile. Pt. with extensive hx. of taking laxatives, causing intractable incontinence of excessive loose stool. Pt. with hx. of poor hygiene and not cleaning BM from skin, resulting in skin areas on buttocks. Areas not caused by or contributed to from unrelieved pressure.
--- NOTE | 2021-09-19 15:03 | PC.NURSE ---
Pt. alert and oriented in all spheres. Displays insight into situation, understanding that bowel incontinence throughout her apartment is problematic. She states that floor tiles and mattress are being replaced and says she spoke with her landlord this morning. Displays insight into medical and psychiatric needs as evidenced by statements that she needs to take correct meds and have her blood sugars under control. Thought and speech content are disorganized and delusional with grandiose themes per baseline. Pt. observed loudly and animatedly self dialoging, breaking out in song at times. Expresses that she feels safe and likes being here. Agreed to retract 3 day notice so that discharge planning can take place.
[2021-09-19 16:08] LABS: Glucose, Whole Blood 90 mg/dL (60-115)
[2021-09-19 18:03] LABS: Glucose, Whole Blood 113 mg/dL (60-115)
[2021-09-19 21:15] VITALS: BP 169/79; PULSE 96; RESP 19; TEMP 36.3; O2SAT 99
[2021-09-19] MEDS: Metoprolol Tartrate 100 MG TABLET PO (21:26)
[2021-09-19 21:27] LABS: Glucose, Whole Blood 129 mg/dL (60-115)
[2021-09-19] MEDS: Benztropine Mesylate 0.5 MG TABLET PO (22:54)
[2021-09-19] MEDS: Divalproex Sodium ER 250 MG TAB.ER.24H 750 MG PO (22:54)
[2021-09-19] MEDS: cloZAPine 100 MG TABLET 300 MG PO (22:54)
[2021-09-20 06:00] VITALS: BP 135/67; PULSE 92; RESP 16; TEMP 36.4; O2SAT 98
[2021-09-20 07:53] LABS: Glucose, Whole Blood 142 mg/dL (60-115)
[2021-09-20] MEDS: metFORMIN HCl 1,000 MG TABLET 1000 MG PO ×2 (08:18→18:38)
--- NOTE | 2021-09-20 08:18 | HO.PSYCHPN ---
Subjective Subjective Date of Service: 09/20/21 Reason For Visit: schizophrenia Subjective Notes: Conditional Voluntary Interim History: the nursing staff reported the patient refused her on metformin and insulin today in the morning since she was scared that she could had hypoglycemia. Overall, she has been compliant with all her psychiatric medications. On interview the patient reported that she does not feel safe to go back to her home since she feels medically ill. The pediatric social worker reported that she has contact all her ancillary services in the community and will have a family meeting pretty soon. Mental Status Exam Mental Status Exam Patient Appearance: Disheveled Patient Orientation: Person and Situation Level of Consciousness: Awake Patient Behavior: Guarded and Suspicious Mood Description: Withdrawn Affect Description: Labile Patient Cognition Impaired: No Ability to Follow Directions: Good Speech Pattern: Rapid Hallucinations: Auditory Delusions: Paranoid Ideation Thought Process: Distracted Judgement: Fair Diagnostics Vital Signs (24Hr): Vital Signs - 24 hr 09/19/21 21:15 Temperature 97.3 F Pulse Rate 96 Respiratory Rate 19 Blood Pressure 169/79 H Pulse Oximetry 99 BMI result Body Mass Index 32.8 Labs Results: 09/19/21 10:59 09/19/21 10:59 Labs: Laboratory Results - last 48 hr 09/16/21 09/18/21 09/18/21 16:22 12:09 16:57 WBC RBC Hgb Hct MCV MCH MCHC RDW Plt Count MPV Immature Gran % (Auto) Neut % (Auto) Lymph % (Auto) [place] % (Auto) Eos % (Auto) Baso % (Auto) Lymph # (Auto) [place] # (Auto) Eos # (Auto) Baso # (Auto) Abs Immat Gran (auto) Absolute Neuts (auto) Absolute Nucleated RBC Nucleated RBC % (auto) Sodium Potassium Chloride Carbon Dioxide Anion Gap BUN Creatinine Estim Creat Clear Calc Estimated GFR POC Glucose 121 H 65 Random Glucose Estimat Average Glucose Hemoglobin A1c % Calcium Total Bilirubin Direct Bilirubin AST ALT Alkaline Phosphatase Total Protein Albumin Triglycerides Cholesterol LDL Cholesterol, Calc HDL Cholesterol Vitamin B12 307 Folate 12.0 TSH Valproic Acid 09/18/21 09/19/21 09/19/21 21:18 07:01 10:59 WBC 10.0 RBC 3.12 L Hgb 8.9 L Hct 27.8 L MCV 89.1 MCH 28.5 MCHC 32.0 RDW 12.8 Plt Count 255 MPV 10.9 Immature Gran % (Auto) 0.6 H Neut % (Auto) 67.3 Lymph % (Auto) 23.0 [place] % (Auto) 5.6 Eos % (Auto) 3.2 Baso % (Auto) 0.3 Lymph # (Auto) 2.3 [place] # (Auto) 0.6 Eos # (Auto) 0.3 Baso # (Auto) 0.0 Abs Immat Gran (auto) 0.06 H Absolute Neuts (auto) 6.7 Absolute Nucleated RBC 0.000 Nucleated RBC % (auto) 0.0 Sodium Potassium Chloride Carbon Dioxide Anion Gap BUN Creatinine Estim Creat Clear Calc Estimated GFR POC Glucose 71 153 H Random Glucose Estimat Average Glucose Hemoglobin A1c % Calcium Total Bilirubin Direct Bilirubin AST ALT Alkaline Phosphatase Total Protein Albumin Triglycerides Cholesterol LDL Cholesterol, Calc HDL Cholesterol Vitamin B12 Folate TSH Valproic Acid 09/19/21 09/19/21 09/19/21 10:59 10:59 11:43 WBC RBC Hgb Hct MCV MCH MCHC RDW Plt Count MPV Immature Gran % (Auto) Neut % (Auto) Lymph % (Auto) [place] % (Auto) Eos % (Auto) Baso % (Auto) Lymph # (Auto) [place] # (Auto) Eos # (Auto) Baso # (Auto) Abs Immat Gran (auto) Absolute Neuts (auto) Absolute Nucleated RBC Nucleated RBC % (auto) Sodium 139 Potassium 4.0 Chloride 105 Carbon Dioxide 23 Anion Gap 15 BUN 13 Creatinine 0.89 Estim Creat Clear Calc 88.3 Estimated GFR > 60 POC Glucose 100 Random Glucose 136 H Estimat Average Glucose 123 Hemoglobin A1c % 5.9 Calcium 9.1 Total Bilirubin 0.4 Direct Bilirubin 0.2 AST 20 ALT 11 Alkaline Phosphatase 85 Total Protein 6.6 Albumin 3.6 Triglycerides 76 Cholesterol 116 LDL Cholesterol, Calc 63 HDL Cholesterol 38 D Vitamin B12 Folate TSH 1.66 Valproic Acid 79.9 09/19/21 09/19/21 09/19/21 16:03 17:59 21:23 WBC RBC Hgb Hct MCV MCH MCHC RDW Plt Count MPV Immature Gran % (Auto) Neut % (Auto) Lymph % (Auto) [place] % (Auto) Eos % (Auto) Baso % (Auto) Lymph # (Auto) [place] # (Auto) Eos # (Auto) Baso # (Auto) Abs Immat Gran (auto) Absolute Neuts (auto) Absolute Nucleated RBC Nucleated RBC % (auto) Sodium Potassium Chloride Carbon Dioxide Anion Gap BUN Creatinine Estim Creat Clear Calc Estimated GFR POC Glucose 90 113 129 H Random Glucose Estimat Average Glucose Hemoglobin A1c % Calcium Total Bilirubin Direct Bilirubin AST ALT Alkaline Phosphatase Total Protein Albumin Triglycerides Cholesterol LDL Cholesterol, Calc HDL Cholesterol Vitamin B12 Folate TSH Valproic Acid 09/20/21 07:49 WBC RBC Hgb Hct MCV MCH MCHC RDW Plt Count MPV Immature Gran % (Auto) Neut % (Auto) Lymph % (Auto) [place] % (Auto) Eos % (Auto) Baso % (Auto) Lymph # (Auto) [place] # (Auto) Eos # (Auto) Baso # (Auto) Abs Immat Gran (auto) Absolute Neuts (auto) Absolute Nucleated RBC Nucleated RBC % (auto) Sodium Potassium Chloride Carbon Dioxide Anion Gap BUN Creatinine Estim Creat Clear Calc Estimated GFR POC Glucose 142 H Random Glucose Estimat Average Glucose Hemoglobin A1c % Calcium Total Bilirubin Direct Bilirubin AST ALT Alkaline Phosphatase Total Protein Albumin Triglycerides Cholesterol LDL Cholesterol, Calc HDL Cholesterol Vitamin B12 Folate TSH Valproic Acid Medications Medications Current Medications Acetaminophen (Acetaminophen 325 Mg Tablet) 650 mg PO Q6H PRN PRN Reason: Headache/Pain Mild Scale (1-3) Al Hydroxide/Mg Hydroxide (Magnesium Hydrox/Alum Hydrox 30 Ml Oral.Susp) 30 ml PO Q6H PRN PRN Reason: Heartburn/Nausea Aspirin (Aspirin Enteric Coated 81 Mg Tablet.Dr) 81 mg PO DAILY [facility] Last Admin: 09/19/21 07:44 Dose: 81 mg Documented by: Atorvastatin Calcium (Atorvastatin Calcium 20 Mg Tablet) 20 mg PO DAILY [facility] Last Admin: 09/19/21 07:44 Dose: 20 mg Documented by: Benztropine Mesylate (Benztropine Mesylate 0.5 Mg Tablet) 0.5 mg PO BEDTIME [facility] Last Admin: 09/19/21 22:54 Dose: 0.5 mg Documented by: Clozapine (Clozapine 100 Mg Tablet) 300 mg PO BEDTIME [facility] Last Admin: 09/19/21 22:54 Dose: 300 mg Documented by: Divalproex Sodium (Divalproex Sodium Er 250 Mg Tab.Er.24h) 750 mg PO BEDTIME [facility] Last Admin: 09/19/21 22:54 Dose: 750 mg Documented by: Hydroxyzine HCl (Hydroxyzine Hcl 25 Mg Tablet) 25 mg PO Q6H PRN PRN Reason: Anxiety Insulin Glargine (Insulin Glargine,Hum.Rec.Anlog 100 Unit/Ml 10 Ml Vial) 25 unit SUBCUT BEDTIME [facility] Last Admin: 09/19/21 22:23 Dose: Not Given Documented by: Insulin Human Lispro (Insulin Lispro 100 Unit/Ml 3 Ml Vial) 0 unit SUBCUT QIDACHS [facility]; Protocol Last Admin: 09/19/21 21:24 Dose: Not Given Documented by: Lisinopril (Lisinopril 40 Mg Tablet) 40 mg PO DAILY [facility]; Protocol Last Admin: 09/19/21 07:44 Dose: 40 mg Documented by: Loperamide HCl (Loperamide Hcl 2 Mg Capsule) 2 mg PO Q4H PRN PRN Reason: Diarrhea Last Admin: 09/18/21 07:42 Dose: 2 mg Documented by: Magnesium Hydroxide (Milk Of Magnesia 30 Ml Oral.Susp) 30 ml PO DAILY PRN PRN Reason: Constipation Metformin HCl (Metformin Hcl 1,000 Mg Tablet) 1,000 mg PO BIDWM [facility] Last Admin: 09/19/21 18:09 Dose: Not Given Documented by: Metoprolol Tartrate (Metoprolol Tartrate 100 Mg Tablet) 100 mg PO BEDTIME [facility]; Protocol Last Admin: 09/19/21 21:26 Dose: 100 mg Documented by: Metoprolol Tartrate (Metoprolol Tartrate 50 Mg Tablet) 50 mg PO DAILY [facility]; Protocol Last Admin: 09/19/21 07:45 Dose: 50 mg Documented by: Oxybutynin Chloride (Oxybutynin Chloride Er 5 Mg Tab.Er.24) 5 mg PO DAILY [facility] Last Admin: 09/19/21 07:44 Dose: 5 mg Documented by: Perphenazine (Perphenazine 8 Mg Tablet) 8 mg PO DAILY [facility] Last Admin: 09/19/21 07:45 Dose: 8 mg Documented by: Polyethylene Glycol (Polyethylene Glycol 3350 17 Gm Powd.Pack) 17 gm PO DAILY [facility] Last Admin: 09/19/21 11:06 Dose: Not Given Documented by: Trazodone HCl (Trazodone Hcl 50 Mg Tablet) 50 mg PO BEDTIME PRN PRN Reason: Insomnia Allergies Allergies Allergy/AdvReac Type Severity Reaction Status Date / Time Sulfa (Sulfonamide Allergy Unknown UNKNOWN Verified 09/15/21 23:47 Antibiotics) [SULFA (SULFONAMIDE ANTIBIOTICS)] Assessment & Plan Assessment & Plan (1) Schizophrenia: Status: Acute Code(s): F20.9 - Schizophrenia, unspecified Assessment and Plan: presents with hallucinations and delusions and decompensation inability to care for self. Unclear circumstances around same. Continue home medications, Including clozapine 300 mg, perphenazine 8 mg daily, Depakote 750 mg at bedtime and Cogentin 0.5. Attempt to gather collateral from community providers during week days with primary team. Blood sugar management as per hospitalist evaluation. Plan The patient is an adult female who looks older than her stated age with a long history of schizophrenia, with several ancillary services such as [facility] case managing services, outpatient services, living independently with several as [facility] services. She was admitted for unclear reasons due to his chronic paranoia and chronic auditory hallucinations. plan 1. Depakote level, basic metabolic panel another lab for. 2. Consult to hospitalist to manage his diabetes and hypoglycemia. 3. Gather collateral information. 4. wound consult. I spent __20____ minutes with the patient and/or on the patient floor today, greater than?50% of which was spent counseling/coordinating care. Reason for contiued inpatient stay Substantial Risk for: inability to function, rapid decompensation and med/psych decompensation
[2021-09-20] MEDS: lisinopriL 40 MG TABLET PO (08:19)
[2021-09-20] MEDS: Perphenazine 8 MG TABLET PO (08:19)
[2021-09-20] MEDS: Aspirin Enteric Coated 81 MG TABLET.DR PO (08:19)
[2021-09-20] MEDS: Atorvastatin Calcium 20 MG TABLET PO (08:19)
[2021-09-20] MEDS: Metoprolol Tartrate 50 MG TABLET PO (08:19)
[2021-09-20] MEDS: polyethylene glycoL 3350 17 GM POWD.PACK PO (08:20)
--- NOTE | 2021-09-20 11:25 | MHC.CLN ---
NUTRITION EXCORIATED SKIN TO BILATERAL BUTTOCKS DUE TO INCONTINENCE OF STOOL AND POOR HYGIENE AT HOME. INCORRECTLY CLASSED STAGE II WOUND. STARTED GLUCERNA BID. PATIENT STATED THAT SHE DOES NOT LIKE/DOES NOT WANT. EATING PEANUT BUTTER AND JELLY SANDWICH SNACK AT TIME OF VISIT. CONTINUE DIABETIC 1800 KCAL DIET.
[2021-09-20 16:02] LABS: Glucose, Whole Blood 144 mg/dL (60-115)
[2021-09-20 16:02] LABS: Glucose, Whole Blood 117 mg/dL (60-115)
[2021-09-20 21:10] VITALS: BP 134/96; PULSE 91; RESP 18; TEMP 36.2; O2SAT 99
[2021-09-20 21:10] LABS: Glucose, Whole Blood 148 mg/dL (60-115)
[2021-09-20] MEDS: cloZAPine 100 MG TABLET 300 MG PO (23:38)
[2021-09-20] MEDS: Benztropine Mesylate 0.5 MG TABLET PO (23:38)
[2021-09-20] MEDS: Divalproex Sodium ER 250 MG TAB.ER.24H 750 MG PO (23:38)
[2021-09-20] MEDS: Metoprolol Tartrate 100 MG TABLET PO (23:38)
--- NOTE | 2021-09-21 06:32 | PC.NURSE ---
Pt. came out to dining room at 0620 and reported I think my blood sugar is going to be low. FBS 117. Pt. is not displaying s/sx of hypoglycemia. She is having a cup of tea.
[2021-09-21 06:34] LABS: Glucose, Whole Blood 117 mg/dL (60-115)
[2021-09-21 07:00] VITALS: BMI 34.0
[2021-09-21] MEDS: polyethylene glycoL 3350 17 GM POWD.PACK PO (08:06)
[2021-09-21] MEDS: Atorvastatin Calcium 20 MG TABLET PO (08:07)
[2021-09-21] MEDS: Perphenazine 8 MG TABLET PO (08:07)
[2021-09-21] MEDS: lisinopriL 40 MG TABLET PO (08:07)
[2021-09-21] MEDS: Aspirin Enteric Coated 81 MG TABLET.DR PO (08:08)
[2021-09-21] MEDS: Metoprolol Tartrate 50 MG TABLET PO (08:08)
[2021-09-21] MEDS: metFORMIN HCl 1,000 MG TABLET 1000 MG PO ×2 (08:08→17:41)
--- NOTE | 2021-09-21 08:10 | HO.PSYCHPN ---
Subjective Subjective Date of Service: 09/21/21 Reason For Visit: schizophrenia Subjective Notes: Conditional Voluntary Interim History: The nursing staff reported the patient has been fully compliant with treatment. She has chronic psychotic symptoms, she was seen self dialogue in but easily redirectable. The patient refused her Lantus insulin stating that the doctor told him not to take it. On interview, the patient was reassured that her medications are appropriate at this moment. We will have a meeting with providers today. Mental Status Exam Mental Status Exam Patient Appearance: Appropriate Patient Orientation: Person and Situation Level of Consciousness: Awake Patient Behavior: Guarded, Talkative and Suspicious Mood Description: Suspicious Affect Description: Labile Patient Cognition Impaired: No Ability to Follow Directions: Good Speech Pattern: Clear Hallucinations: Auditory Delusions: Paranoid Ideation Thought Process: Illogical and Distracted Thought Content: positive for Poverty of Content, positive for Tangential and positive for Disorganized Judgement: Fair Diagnostics Vital Signs (24Hr): Vital Signs - 24 hr 09/20/21 21:10 Temperature 97.2 F Pulse Rate 91 Respiratory Rate 18 Blood Pressure 134/96 H Pulse Oximetry 99 BMI result Body Mass Index 32.8 Labs Results: 09/19/21 10:59 09/19/21 10:59 Labs: Laboratory Results - last 48 hr 09/19/21 09/19/21 09/19/21 10:59 10:59 10:59 WBC 10.0 RBC 3.12 L Hgb 8.9 L Hct 27.8 L MCV 89.1 MCH 28.5 MCHC 32.0 RDW 12.8 Plt Count 255 MPV 10.9 Immature Gran % (Auto) 0.6 H Neut % (Auto) 67.3 Lymph % (Auto) 23.0 [place] % (Auto) 5.6 Eos % (Auto) 3.2 Baso % (Auto) 0.3 Lymph # (Auto) 2.3 [place] # (Auto) 0.6 Eos # (Auto) 0.3 Baso # (Auto) 0.0 Abs Immat Gran (auto) 0.06 H Absolute Neuts (auto) 6.7 Absolute Nucleated RBC 0.000 Nucleated RBC % (auto) 0.0 Sodium 139 Potassium 4.0 Chloride 105 Carbon Dioxide 23 Anion Gap 15 BUN 13 Creatinine 0.89 Estim Creat Clear Calc 88.3 Estimated GFR > 60 POC Glucose Random Glucose 136 H Estimat Average Glucose 123 Hemoglobin A1c % 5.9 Calcium 9.1 Total Bilirubin 0.4 Direct Bilirubin 0.2 AST 20 ALT 11 Alkaline Phosphatase 85 Total Protein 6.6 Albumin 3.6 Triglycerides 76 Cholesterol 116 LDL Cholesterol, Calc 63 HDL Cholesterol 38 D TSH 1.66 Valproic Acid 79.9 09/19/21 09/19/21 09/19/21 11:43 16:03 17:59 WBC RBC Hgb Hct MCV MCH MCHC RDW Plt Count MPV Immature Gran % (Auto) Neut % (Auto) Lymph % (Auto) [place] % (Auto) Eos % (Auto) Baso % (Auto) Lymph # (Auto) [place] # (Auto) Eos # (Auto) Baso # (Auto) Abs Immat Gran (auto) Absolute Neuts (auto) Absolute Nucleated RBC Nucleated RBC % (auto) Sodium Potassium Chloride Carbon Dioxide Anion Gap BUN Creatinine Estim Creat Clear Calc Estimated GFR POC Glucose 100 90 113 Random Glucose Estimat Average Glucose Hemoglobin A1c % Calcium Total Bilirubin Direct Bilirubin AST ALT Alkaline Phosphatase Total Protein Albumin Triglycerides Cholesterol LDL Cholesterol, Calc HDL Cholesterol TSH Valproic Acid 09/19/21 09/20/21 09/20/21 21:23 07:49 11:33 WBC RBC Hgb Hct MCV MCH MCHC RDW Plt Count MPV Immature Gran % (Auto) Neut % (Auto) Lymph % (Auto) [place] % (Auto) Eos % (Auto) Baso % (Auto) Lymph # (Auto) [place] # (Auto) Eos # (Auto) Baso # (Auto) Abs Immat Gran (auto) Absolute Neuts (auto) Absolute Nucleated RBC Nucleated RBC % (auto) Sodium Potassium Chloride Carbon Dioxide Anion Gap BUN Creatinine Estim Creat Clear Calc Estimated GFR POC Glucose 129 H 142 H 117 H Random Glucose Estimat Average Glucose Hemoglobin A1c % Calcium Total Bilirubin Direct Bilirubin AST ALT Alkaline Phosphatase Total Protein Albumin Triglycerides Cholesterol LDL Cholesterol, Calc HDL Cholesterol TSH Valproic Acid 09/20/21 09/20/21 09/21/21 15:58 21:06 06:30 WBC RBC Hgb Hct MCV MCH MCHC RDW Plt Count MPV Immature Gran % (Auto) Neut % (Auto) Lymph % (Auto) [place] % (Auto) Eos % (Auto) Baso % (Auto) Lymph # (Auto) [place] # (Auto) Eos # (Auto) Baso # (Auto) Abs Immat Gran (auto) Absolute Neuts (auto) Absolute Nucleated RBC Nucleated RBC % (auto) Sodium Potassium Chloride Carbon Dioxide Anion Gap BUN Creatinine Estim Creat Clear Calc Estimated GFR POC Glucose 144 H 148 H 117 H Random Glucose Estimat Average Glucose Hemoglobin A1c % Calcium Total Bilirubin Direct Bilirubin AST ALT Alkaline Phosphatase Total Protein Albumin Triglycerides Cholesterol LDL Cholesterol, Calc HDL Cholesterol TSH Valproic Acid Medications Medications Current Medications Acetaminophen (Acetaminophen 325 Mg Tablet) 650 mg PO Q6H PRN PRN Reason: Headache/Pain Mild Scale (1-3) Al Hydroxide/Mg Hydroxide (Magnesium Hydrox/Alum Hydrox 30 Ml Oral.Susp) 30 ml PO Q6H PRN PRN Reason: Heartburn/Nausea Aspirin (Aspirin Enteric Coated 81 Mg Tablet.) 81 mg PO DAILY [facility] Last Admin: 09/21/21 08:08 Dose: 81 mg Documented by: Atorvastatin Calcium (Atorvastatin Calcium 20 Mg Tablet) 20 mg PO DAILY [facility] Last Admin: 09/21/21 08:07 Dose: 20 mg Documented by: Benztropine Mesylate (Benztropine Mesylate 0.5 Mg Tablet) 0.5 mg PO BEDTIME [facility] Last Admin: 09/20/21 23:38 Dose: 0.5 mg Documented by: Clozapine (Clozapine 100 Mg Tablet) 300 mg PO BEDTIME [facility] Last Admin: 09/20/21 23:38 Dose: 300 mg Documented by: Divalproex Sodium (Divalproex Sodium Er 250 Mg Tab.Er.24h) 750 mg PO BEDTIME [facility] Last Admin: 09/20/21 23:38 Dose: 750 mg Documented by: Hydroxyzine HCl (Hydroxyzine Hcl 25 Mg Tablet) 25 mg PO Q6H PRN PRN Reason: Anxiety Insulin Glargine (Insulin Glargine,Hum.Rec.Anlog 100 Unit/Ml 10 Ml Vial) 25 unit SUBCUT BEDTIME [facility] Last Admin: 09/20/21 22:42 Dose: Not Given Documented by: Insulin Human Lispro (Insulin Lispro 100 Unit/Ml 3 Ml Vial) 0 unit SUBCUT QIDACHS [facility]; Protocol Last Admin: 09/21/21 08:06 Dose: Not Given Documented by: Lisinopril (Lisinopril 40 Mg Tablet) 40 mg PO DAILY [facility]; Protocol Last Admin: 09/21/21 08:07 Dose: 40 mg Documented by: Loperamide HCl (Loperamide Hcl 2 Mg Capsule) 2 mg PO Q4H PRN PRN Reason: Diarrhea Last Admin: 09/18/21 07:42 Dose: 2 mg Documented by: Magnesium Hydroxide (Milk Of Magnesia 30 Ml Oral.Susp) 30 ml PO DAILY PRN PRN Reason: Constipation Metformin HCl (Metformin Hcl 1,000 Mg Tablet) 1,000 mg PO BIDWM [facility] Last Admin: 09/21/21 08:08 Dose: 1,000 mg Documented by: Metoprolol Tartrate (Metoprolol Tartrate 100 Mg Tablet) 100 mg PO BEDTIME [facility]; Protocol Last Admin: 09/20/21 23:38 Dose: 100 mg Documented by: Metoprolol Tartrate (Metoprolol Tartrate 50 Mg Tablet) 50 mg PO DAILY [facility]; Protocol Last Admin: 09/21/21 08:08 Dose: 50 mg Documented by: Oxybutynin Chloride (Oxybutynin Chloride Er 5 Mg Tab.Er.24) 5 mg PO DAILY [facility] Last Admin: 09/21/21 08:08 Dose: 5 mg Documented by: Perphenazine (Perphenazine 8 Mg Tablet) 8 mg PO DAILY [facility] Last Admin: 09/21/21 08:07 Dose: 8 mg Documented by: Polyethylene Glycol (Polyethylene Glycol 3350 17 Gm Powd.Pack) 17 gm PO DAILY [facility] Last Admin: 09/21/21 08:06 Dose: 17 gm Documented by: Trazodone HCl (Trazodone Hcl 50 Mg Tablet) 50 mg PO BEDTIME PRN PRN Reason: Insomnia Allergies Allergies Allergy/AdvReac Type Severity Reaction Status Date / Time Sulfa (Sulfonamide Allergy Unknown UNKNOWN Verified 09/15/21 23:47 Antibiotics) [SULFA (SULFONAMIDE ANTIBIOTICS)] Assessment & Plan Assessment & Plan (1) Schizophrenia: Status: Acute Code(s): F20.9 - Schizophrenia, unspecified Assessment and Plan: presents with hallucinations and delusions and decompensation inability to care for self. Unclear circumstances around same. Continue home medications, Including clozapine 300 mg, perphenazine 8 mg daily, Depakote 750 mg at bedtime and Cogentin 0.5. Attempt to gather collateral from community providers during week days with primary team. Blood sugar management as per hospitalist evaluation. Plan The patient is an adult female who looks older than her stated age with a long history of schizophrenia, with several ancillary services such as [facility] case managing services, outpatient services, living independently with several as [facility] services. She was admitted for unclear reasons due to his chronic paranoia and chronic auditory hallucinations. plan 1. Depakote level, basic metabolic panel another lab done wnl. 2. Consult to hospitalist to manage his diabetes and hypoglycemia. 3. Gather collateral information. 4. wound consult. I spent ___20___ minutes with the patient and/or on the patient floor today, greater than?50% of which was spent counseling/coordinating care. Reason for contiued inpatient stay Substantial Risk for: inability to function, rapid decompensation and med/psych decompensation
[2021-09-21 08:14] VITALS: BP 146/60; PULSE 81; RESP 18; TEMP 36.3; O2SAT 98
[2021-09-21 11:41] LABS: Glucose, Whole Blood 118 mg/dL (60-115)
[2021-09-21 16:59] LABS: Glucose, Whole Blood 103 mg/dL (60-115)
[2021-09-21 18:00] VITALS: BP 168/90; PULSE 95; RESP 17; TEMP 36.2; O2SAT 99
[2021-09-21 20:38] LABS: Glucose, Whole Blood 229 mg/dL (60-115)
[2021-09-21] MEDS: Metoprolol Tartrate 100 MG TABLET PO (21:54)
[2021-09-21] MEDS: Divalproex Sodium ER 250 MG TAB.ER.24H 750 MG PO (21:54)
[2021-09-21] MEDS: cloZAPine 100 MG TABLET 300 MG PO (21:54)
[2021-09-21] MEDS: Benztropine Mesylate 0.5 MG TABLET PO (21:55)
[2021-09-22 08:00] VITALS: BP 156/110; PULSE 89; RESP 18; TEMP 36.6; O2SAT 98
[2021-09-22 08:00] LABS: Glucose, Whole Blood 104 mg/dL (60-115)
[2021-09-22] MEDS: lisinopriL 40 MG TABLET PO (08:54)
[2021-09-22] MEDS: Metoprolol Tartrate 50 MG TABLET PO (08:54)
[2021-09-22] MEDS: Aspirin Enteric Coated 81 MG TABLET.DR PO (08:54)
[2021-09-22] MEDS: metFORMIN HCl 1,000 MG TABLET 1000 MG PO ×2 (08:55→18:11)
[2021-09-22] MEDS: Perphenazine 8 MG TABLET PO ×2 (08:55→20:05)
[2021-09-22] MEDS: Atorvastatin Calcium 20 MG TABLET PO (08:55)
[2021-09-22 11:44] LABS: Glucose, Whole Blood 181 mg/dL (60-115)
--- NOTE | 2021-09-22 14:25 | P.PNPSI_ITS ---
Subjective Subjective Date of Service: 09/22/21 Reason For Visit: schizophrenia Subjective Notes: Conditional Voluntary Interim History: the nursing staff reported the patient had been delusional but she is easily redirectable. On interview, the patient reports that she is doing fine but she is paranoid against some people that she knows on her community. Today we had a meeting with [facility] and [facility] and according to the staff the nose her for years, she is not at her baseline she has more psychotic than usual. She does not want to go back to her apartment so outpatient providers are going to work on proper discharge planning. [facility] supervisor case loading was very clear with the patient stating that if she leaves her apartment she will not get back. Mental Status Exam Mental Status Exam Patient Appearance: Well Grooomed Patient Orientation: Person and Situation Level of Consciousness: Awake Patient Behavior: Guarded Mood Description: Suspicious and Withdrawn Affect Description: Labile Patient Cognition Impaired: No Ability to Follow Directions: Good Speech Pattern: Rapid and Loud Hallucinations: Auditory Delusions: Paranoid Ideation Thought Process: Racing, Illogical and Distracted Thought Content: positive for [place] and positive for Poverty of Content Judgement: Fair Diagnostics Vital Signs (24Hr): Vital Signs - 24 hr 09/21/21 18:00 09/22/21 08:00 Temperature 97.2 F 97.9 F Pulse Rate 95 89 Respiratory Rate 17 18 Blood Pressure 168/90 H 156/110 H Pulse Oximetry 99 98 BMI result Body Mass Index 34.0 Labs Results: 09/19/21 10:59 09/19/21 10:59 Labs: Laboratory Results - last 48 hr 09/20/21 09/20/21 09/20/21 11:33 15:58 21:06 POC Glucose 117 H 144 H 148 H 09/21/21 09/21/21 09/21/21 06:30 11:37 16:55 POC Glucose 117 H 118 H 103 09/21/21 09/22/21 09/22/21 19:59 07:56 11:41 POC Glucose 229 H 104 181 H Medications Medications Current Medications Acetaminophen (Acetaminophen 325 Mg Tablet) 650 mg PO Q6H PRN PRN Reason: Headache/Pain Mild Scale (1-3) Al Hydroxide/Mg Hydroxide (Magnesium Hydrox/Alum Hydrox 30 Ml Oral.Susp) 30 ml PO Q6H PRN PRN Reason: Heartburn/Nausea Aspirin (Aspirin Enteric Coated 81 Mg Tablet.Dr) 81 mg PO DAILY [facility] Last Admin: 09/22/21 08:54 Dose: 81 mg Documented by: Atorvastatin Calcium (Atorvastatin Calcium 20 Mg Tablet) 20 mg PO DAILY [facility] Last Admin: 09/22/21 08:55 Dose: 20 mg Documented by: Benztropine Mesylate (Benztropine Mesylate 0.5 Mg Tablet) 0.5 mg PO BEDTIME [facility] Last Admin: 09/21/21 21:55 Dose: 0.5 mg Documented by: Clozapine (Clozapine 100 Mg Tablet) 300 mg PO BEDTIME [facility] Last Admin: 09/21/21 21:54 Dose: 300 mg Documented by: Divalproex Sodium (Divalproex Sodium Er 250 Mg Tab.Er.24h) 750 mg PO BEDTIME [facility] Last Admin: 09/21/21 21:54 Dose: 750 mg Documented by: Hydroxyzine HCl (Hydroxyzine Hcl 25 Mg Tablet) 25 mg PO Q6H PRN PRN Reason: Anxiety Insulin Glargine (Insulin Glargine,Hum.Rec.Anlog 100 Unit/Ml 10 Ml Vial) 25 unit SUBCUT BEDTIME [facility] Last Admin: 09/21/21 20:41 Dose: Not Given Documented by: Insulin Human Lispro (Insulin Lispro 100 Unit/Ml 3 Ml Vial) 0 unit SUBCUT QIDACHS [facility]; Protocol Last Admin: 09/22/21 11:54 Dose: Not Given Documented by: Lisinopril (Lisinopril 40 Mg Tablet) 40 mg PO DAILY [facility]; Protocol Last Admin: 09/22/21 08:54 Dose: 40 mg Documented by: Loperamide HCl (Loperamide Hcl 2 Mg Capsule) 2 mg PO Q4H PRN PRN Reason: Diarrhea Last Admin: 09/18/21 07:42 Dose: 2 mg Documented by: Magnesium Hydroxide (Milk Of Magnesia 30 Ml Oral.Susp) 30 ml PO DAILY PRN PRN Reason: Constipation Metformin HCl (Metformin Hcl 1,000 Mg Tablet) 1,000 mg PO BIDWM [facility] Last Admin: 09/22/21 08:55 Dose: 1,000 mg Documented by: Metoprolol Tartrate (Metoprolol Tartrate 100 Mg Tablet) 100 mg PO BEDTIME [facility]; Protocol Last Admin: 09/21/21 21:54 Dose: 100 mg Documented by: Metoprolol Tartrate (Metoprolol Tartrate 50 Mg Tablet) 50 mg PO DAILY [facility]; Protocol Last Admin: 09/22/21 08:54 Dose: 50 mg Documented by: Oxybutynin Chloride (Oxybutynin Chloride Er 5 Mg Tab.Er.24) 5 mg PO DAILY [facility] Last Admin: 09/22/21 08:55 Dose: 5 mg Documented by: Perphenazine (Perphenazine 8 Mg Tablet) 8 mg PO BID [facility] Polyethylene Glycol (Polyethylene Glycol 3350 17 Gm Powd.Pack) 17 gm PO DAILY [facility] Last Admin: 09/22/21 09:02 Dose: Not Given Documented by: Trazodone HCl (Trazodone Hcl 50 Mg Tablet) 50 mg PO BEDTIME PRN PRN Reason: Insomnia Allergies Allergies Allergy/AdvReac Type Severity Reaction Status Date / Time Sulfa (Sulfonamide Allergy Unknown UNKNOWN Verified 09/15/21 23:47 Antibiotics) [SULFA (SULFONAMIDE ANTIBIOTICS)] Assessment & Plan Assessment & Plan (1) Schizophrenia: Status: Acute Code(s): F20.9 - Schizophrenia, unspecified Assessment and Plan: presents with hallucinations and delusions and decompensation inability to care for self. Unclear circumstances around same. Continue home medications, Including clozapine 300 mg, perphenazine 8 mg daily, Depakote 750 mg at bedtime and Cogentin 0.5. Attempt to gather collateral from community providers during week days with primary team. Blood sugar management as per hospitalist evaluation. Plan The patient is an adult female who looks older than her stated age with a long history of schizophrenia, with several ancillary services such as [facility] case managing services, outpatient services, living independently with several as [facility] services. She was admitted for unclear reasons due to his chronic paranoia and chronic auditory hallucinations. plan 1. Depakote level, basic metabolic panel another lab done wnl. 2. Consult to hospitalist to manage his diabetes and hypoglycemia. 3. Gather collateral information. 4. wound consult. 5. Increase Perphenazine I spent ___20___ minutes with the patient and/or on the patient floor today, greater than?50% of which was spent counseling/coordinating care. Reason for contiued inpatient stay Substantial Risk for: inability to function, rapid decompensation and med/psych decompensation
[2021-09-22 18:00] VITALS: BP 162/90; PULSE 90; RESP 20; TEMP 35.7; O2SAT 98
[2021-09-22 18:09] LABS: Glucose, Whole Blood 172 mg/dL (60-115)
[2021-09-22] MEDS: Divalproex Sodium ER 250 MG TAB.ER.24H 750 MG PO (20:04)
[2021-09-22] MEDS: Benztropine Mesylate 0.5 MG TABLET PO (20:04)
[2021-09-22] MEDS: Metoprolol Tartrate 100 MG TABLET PO (20:05)
[2021-09-22] MEDS: cloZAPine 100 MG TABLET 300 MG PO (20:05)
[2021-09-22 20:51] LABS: Glucose, Whole Blood 213 mg/dL (60-115)
[2021-09-23 06:00] VITALS: BP 186/90; PULSE 87; RESP 16; TEMP 36.4; O2SAT 100
[2021-09-23 06:10] LABS: Glucose, Whole Blood 202 mg/dL (60-115)
[2021-09-23] MEDS: Aspirin Enteric Coated 81 MG TABLET.DR PO (08:31)
[2021-09-23] MEDS: Atorvastatin Calcium 20 MG TABLET PO (08:32)
[2021-09-23] MEDS: Metoprolol Tartrate 50 MG TABLET PO (08:33)
[2021-09-23] MEDS: polyethylene glycoL 3350 17 GM POWD.PACK PO (08:33)
[2021-09-23] MEDS: metFORMIN HCl 1,000 MG TABLET 1000 MG PO ×2 (08:33→16:33)
[2021-09-23] MEDS: lisinopriL 40 MG TABLET PO (08:33)
[2021-09-23 11:27] LABS: Glucose, Whole Blood 239 mg/dL (60-115)
[2021-09-23 11:39] VITALS: BP 173/80
[2021-09-23] MEDS: Perphenazine 8 MG TABLET PO ×3 (12:24→20:55)
[2021-09-23 16:38] LABS: Glucose, Whole Blood 190 mg/dL (60-115)
[2021-09-23 18:00] VITALS: BP 160/88; PULSE 102; RESP 22; TEMP 36.2; O2SAT 98
[2021-09-23] MEDS: cloZAPine 100 MG TABLET 300 MG PO (20:51)
[2021-09-23] MEDS: Benztropine Mesylate 0.5 MG TABLET PO (20:51)
[2021-09-23] MEDS: Metoprolol Tartrate 100 MG TABLET PO (20:51)
[2021-09-23] MEDS: Divalproex Sodium ER 250 MG TAB.ER.24H 750 MG PO (20:51)
--- NOTE | 2021-09-23 21:46 | HO.PSYCHPN ---
Subjective Subjective Date of Service: 09/23/21 Reason For Visit: schizophrenia Interim History: Patient seen. DW team. Patient's BP has been running high. She continues delusional. She believes her mom is Rivka Topete, that she is related to Иван Thapa (she asked to be called Mrs. Thapa) and that she is in the hospital to get away from her son who is trying to kill her because he's a Satan worshipper. Agreed to increase her metoprolol. Review of Systems Review of Systems unremarkable Yes Unobtainable due to mental status Mental Status Exam Mental Status Exam Narrative: in day area.? Hospital clothing.? Self-care is limited.? ?Elated affect and some irritability. Is alert and oriented but internally preoccupied and guarded. ?Delusional. No SI or HI evident.? Insight and judgment appear limited Patient Appearance: Well Grooomed Patient Orientation: Person and Situation Level of Consciousness: Awake Patient Behavior: Guarded Mood Description: Suspicious and Withdrawn Affect Description: Labile Patient Cognition Impaired: No Ability to Follow Directions: Good Speech Pattern: Rapid and Loud Diagnostics Vital Signs (24Hr): Vital Signs - 24 hr 09/23/21 06:00 09/23/21 11:39 Temperature 97.6 F Pulse Rate 87 Respiratory Rate 16 Blood Pressure 186/90 H 173/80 H Pulse Oximetry 100 BMI result Body Mass Index 34.0 Labs Results: 09/19/21 10:59 09/19/21 10:59 Labs: Laboratory Results - last 48 hr 09/22/21 09/22/21 09/22/21 07:56 11:41 18:04 POC Glucose 104 181 H 172 H 09/22/21 09/23/21 09/23/21 20:10 06:04 11:22 POC Glucose 213 H 202 H 239 H 09/23/21 16:31 POC Glucose 190 H Medications Medications Current Medications Acetaminophen (Acetaminophen 325 Mg Tablet) 650 mg PO Q6H PRN PRN Reason: Headache/Pain Mild Scale (1-3) Al Hydroxide/Mg Hydroxide (Magnesium Hydrox/Alum Hydrox 30 Ml Oral.Susp) 30 ml PO Q6H PRN PRN Reason: Heartburn/Nausea Aspirin (Aspirin Enteric Coated 81 Mg Tablet.) 81 mg PO DAILY [facility] Last Admin: 09/23/21 08:31 Dose: 81 mg Documented by: Atorvastatin Calcium (Atorvastatin Calcium 20 Mg Tablet) 20 mg PO DAILY [facility] Last Admin: 09/23/21 08:32 Dose: 20 mg Documented by: Benztropine Mesylate (Benztropine Mesylate 0.5 Mg Tablet) 0.5 mg PO BEDTIME [facility] Last Admin: 09/23/21 20:51 Dose: 0.5 mg Documented by: Clozapine (Clozapine 100 Mg Tablet) 300 mg PO BEDTIME [facility] Last Admin: 09/23/21 20:51 Dose: 300 mg Documented by: Divalproex Sodium (Divalproex Sodium Er 250 Mg Tab.Er.24h) 750 mg PO BEDTIME [facility] Last Admin: 09/23/21 20:51 Dose: 750 mg Documented by: Hydroxyzine HCl (Hydroxyzine Hcl 25 Mg Tablet) 25 mg PO Q6H PRN PRN Reason: Anxiety Insulin Glargine (Insulin Glargine,Hum.Rec.Anlog 100 Unit/Ml 10 Ml Vial) 25 unit SUBCUT BEDTIME [facility] Last Admin: 09/23/21 20:54 Dose: Not Given Documented by: Insulin Human Lispro (Insulin Lispro 100 Unit/Ml 3 Ml Vial) 0 unit SUBCUT QIDACHS [facility]; Protocol Last Admin: 09/23/21 20:57 Dose: Not Given Documented by: Lisinopril (Lisinopril 40 Mg Tablet) 40 mg PO DAILY [facility]; Protocol Last Admin: 09/23/21 08:33 Dose: 40 mg Documented by: Loperamide HCl (Loperamide Hcl 2 Mg Capsule) 2 mg PO Q4H PRN PRN Reason: Diarrhea Last Admin: 09/18/21 07:42 Dose: 2 mg Documented by: Magnesium Hydroxide (Milk Of Magnesia 30 Ml Oral.Susp) 30 ml PO DAILY PRN PRN Reason: Constipation Metformin HCl (Metformin Hcl 1,000 Mg Tablet) 1,000 mg PO BIDWM [facility] Last Admin: 09/23/21 16:33 Dose: 1,000 mg Documented by: Metoprolol Tartrate (Metoprolol Tartrate 100 Mg Tablet) 100 mg PO BID [facility]; Protocol Last Admin: 09/23/21 20:51 Dose: 100 mg Documented by: Oxybutynin Chloride (Oxybutynin Chloride Er 5 Mg Tab.Er.24) 5 mg PO DAILY [facility] Last Admin: 09/23/21 08:32 Dose: 5 mg Documented by: Perphenazine (Perphenazine 8 Mg Tablet) 8 mg PO BID [facility] Last Admin: 09/23/21 20:55 Dose: 8 mg Documented by: Polyethylene Glycol (Polyethylene Glycol 3350 17 Gm Powd.Pack) 17 gm PO DAILY [facility] Last Admin: 09/23/21 08:33 Dose: 17 gm Documented by: Trazodone HCl (Trazodone Hcl 50 Mg Tablet) 50 mg PO BEDTIME PRN PRN Reason: Insomnia Allergies Allergies Allergy/AdvReac Type Severity Reaction Status Date / Time Sulfa (Sulfonamide Allergy Unknown UNKNOWN Verified 09/15/21 23:47 Antibiotics) [SULFA (SULFONAMIDE ANTIBIOTICS)] Assessment & Plan Assessment & Plan (1) Schizophrenia: Status: Acute Code(s): F20.9 - Schizophrenia, unspecified Assessment and Plan: presents with hallucinations and delusions and decompensation inability to care for self. Unclear circumstances around same. Continue home medications, Including clozapine 300 mg, perphenazine 8 mg daily, Depakote 750 mg at bedtime and Cogentin 0.5. Attempt to gather collateral from community providers during week days with primary team. Blood sugar management as per hospitalist evaluation. Plan The patient is an adult female who looks older than her stated age with a long history of schizophrenia, with several ancillary services such as [facility] case managing services, outpatient services, living independently with several as [facility] services. She was admitted for unclear reasons due to his chronic paranoia and chronic auditory hallucinations. plan 1. Depakote level, basic metabolic panel another lab done wnl. 2. Consult to hospitalist to manage his diabetes and hypoglycemia. 3. Gather collateral information. 4. wound consult. 5. Increase Perphenazine 5/7 Continue treatment plan I spent minutes with the patient and/or on the patient floor today, greater than?50% of which was spent counseling/coordinating care. Reason for contiued inpatient stay Substantial Risk for: inability to function and rapid decompensation
[2021-09-24 03:00] LABS: Glucose, Whole Blood 216 mg/dL (60-115)
[2021-09-24 06:00] VITALS: BP 141/67; PULSE 98; RESP 16; TEMP 36.2; O2SAT 95
[2021-09-24] MEDS: metFORMIN HCl 1,000 MG TABLET 1000 MG PO ×2 (08:22→17:40)
[2021-09-24] MEDS: lisinopriL 40 MG TABLET PO (08:22)
[2021-09-24] MEDS: Metoprolol Tartrate 100 MG TABLET PO ×2 (08:23→21:40)
[2021-09-24] MEDS: Perphenazine 8 MG TABLET PO ×2 (08:23→21:40)
[2021-09-24] MEDS: Aspirin Enteric Coated 81 MG TABLET.DR PO (08:23)
[2021-09-24] MEDS: Atorvastatin Calcium 20 MG TABLET PO (08:23)
[2021-09-24] MEDS: polyethylene glycoL 3350 17 GM POWD.PACK PO (08:25)
[2021-09-24 11:51] LABS: Glucose, Whole Blood 166 mg/dL (60-115)
--- NOTE | 2021-09-24 17:23 | HO.PSYCHPN ---
Subjective Subjective Date of Service: 09/24/21 Reason For Visit: schizophrenia Interim History: Patient seen. DW team. Patient's BP improved today.She remains delusional. She is med compliant. No aggression. Irritable. Grandiose claiming relations to many celebrities. Self dialogue noted by the team. Review of Systems Review of Systems unremarkable Yes Unobtainable due to mental status Mental Status Exam Mental Status Exam Narrative: in day area.? Hospital clothing.? Self-care is limited.? ?Elated affect and some irritability. Is alert and oriented but internally preoccupied and guarded. ?Delusional. No SI or HI evident.? Insight and judgment appear limited Patient Appearance: Well Grooomed Patient Orientation: Person and Situation Level of Consciousness: Awake Patient Behavior: Guarded Mood Description: Suspicious and Withdrawn Affect Description: Labile Patient Cognition Impaired: No Ability to Follow Directions: Good Speech Pattern: Rapid and Loud Diagnostics Vital Signs (24Hr): Vital Signs - 24 hr 09/23/21 18:00 09/24/21 06:00 Temperature 97.2 F 97.2 F Pulse Rate 102 H 98 Respiratory Rate 22 H 16 Blood Pressure 160/88 H 141/67 H Pulse Oximetry 98 95 BMI result Body Mass Index 34.0 Labs Results: 09/19/21 10:59 09/19/21 10:59 Labs: Laboratory Results - last 48 hr 09/22/21 09/22/21 09/23/21 18:04 20:10 06:04 POC Glucose 172 H 213 H 202 H 09/23/21 09/23/21 09/23/21 11:22 16:31 20:50 POC Glucose 239 H 190 H 216 H 09/24/21 11:48 POC Glucose 166 H Medications Medications Current Medications Acetaminophen (Acetaminophen 325 Mg Tablet) 650 mg PO Q6H PRN PRN Reason: Headache/Pain Mild Scale (1-3) Al Hydroxide/Mg Hydroxide (Magnesium Hydrox/Alum Hydrox 30 Ml Oral.Susp) 30 ml PO Q6H PRN PRN Reason: Heartburn/Nausea Aspirin (Aspirin Enteric Coated 81 Mg Tablet.) 81 mg PO DAILY [facility] Last Admin: 09/24/21 08:23 Dose: 81 mg Documented by: Atorvastatin Calcium (Atorvastatin Calcium 20 Mg Tablet) 20 mg PO DAILY [facility] Last Admin: 09/24/21 08:23 Dose: 20 mg Documented by: Benztropine Mesylate (Benztropine Mesylate 0.5 Mg Tablet) 0.5 mg PO BEDTIME [facility] Last Admin: 09/23/21 20:51 Dose: 0.5 mg Documented by: Clozapine (Clozapine 100 Mg Tablet) 300 mg PO BEDTIME [facility] Last Admin: 09/23/21 20:51 Dose: 300 mg Documented by: Divalproex Sodium (Divalproex Sodium Er 250 Mg Tab.Er.24h) 750 mg PO BEDTIME [facility] Last Admin: 09/23/21 20:51 Dose: 750 mg Documented by: Hydroxyzine HCl (Hydroxyzine Hcl 25 Mg Tablet) 25 mg PO Q6H PRN PRN Reason: Anxiety Insulin Glargine (Insulin Glargine,Hum.Rec.Anlog 100 Unit/Ml 10 Ml Vial) 25 unit SUBCUT BEDTIME [facility] Last Admin: 09/23/21 20:54 Dose: Not Given Documented by: Insulin Human Lispro (Insulin Lispro 100 Unit/Ml 3 Ml Vial) 0 unit SUBCUT QIDACHS [facility]; Protocol Last Admin: 09/24/21 16:42 Dose: Not Given Documented by: Lisinopril (Lisinopril 40 Mg Tablet) 40 mg PO DAILY [facility]; Protocol Last Admin: 09/24/21 08:22 Dose: 40 mg Documented by: Loperamide HCl (Loperamide Hcl 2 Mg Capsule) 2 mg PO Q4H PRN PRN Reason: Diarrhea Last Admin: 09/18/21 07:42 Dose: 2 mg Documented by: Magnesium Hydroxide (Milk Of Magnesia 30 Ml Oral.Susp) 30 ml PO DAILY PRN PRN Reason: Constipation Metformin HCl (Metformin Hcl 1,000 Mg Tablet) 1,000 mg PO BIDWM [facility] Last Admin: 09/24/21 08:22 Dose: 1,000 mg Documented by: Metoprolol Tartrate (Metoprolol Tartrate 100 Mg Tablet) 100 mg PO BID [facility]; Protocol Last Admin: 09/24/21 08:23 Dose: 100 mg Documented by: Oxybutynin Chloride (Oxybutynin Chloride Er 5 Mg Tab.Er.24) 5 mg PO DAILY [facility] Last Admin: 09/24/21 08:22 Dose: 5 mg Documented by: Perphenazine (Perphenazine 8 Mg Tablet) 8 mg PO BID [facility] Last Admin: 09/24/21 08:23 Dose: 8 mg Documented by: Polyethylene Glycol (Polyethylene Glycol 3350 17 Gm Powd.Pack) 17 gm PO DAILY [facility] Last Admin: 09/24/21 08:25 Dose: 17 gm Documented by: Trazodone HCl (Trazodone Hcl 50 Mg Tablet) 50 mg PO BEDTIME PRN PRN Reason: Insomnia Allergies Allergies Allergy/AdvReac Type Severity Reaction Status Date / Time Sulfa (Sulfonamide Allergy Unknown UNKNOWN Verified 09/15/21 23:47 Antibiotics) [SULFA (SULFONAMIDE ANTIBIOTICS)] Assessment & Plan Assessment & Plan (1) Schizophrenia: Status: Acute Code(s): F20.9 - Schizophrenia, unspecified Assessment and Plan: presents with hallucinations and delusions and decompensation inability to care for self. Unclear circumstances around same. Continue home medications, Including clozapine 300 mg, perphenazine 8 mg daily, Depakote 750 mg at bedtime and Cogentin 0.5. Attempt to gather collateral from community providers during week days with primary team. Blood sugar management as per hospitalist evaluation. Plan The patient is an adult female who looks older than her stated age with a long history of schizophrenia, with several ancillary services such as [facility] case managing services, outpatient services, living independently with several as [facility] services. She was admitted for unclear reasons due to his chronic paranoia and chronic auditory hallucinations. plan 1. Depakote level, basic metabolic panel another lab done wnl. 2. Consult to hospitalist to manage his diabetes and hypoglycemia. 3. Gather collateral information. 4. wound consult. 5. Increase Perphenazine 09/23 Continue treatment plan 09/24 Continue treatment plan I spent minutes with the patient and/or on the patient floor today, greater than?50% of which was spent counseling/coordinating care. Reason for contiued inpatient stay Substantial Risk for: inability to function and rapid decompensation
[2021-09-24 21:30] VITALS: BP 137/85; PULSE 91; RESP 19; TEMP 36.4; O2SAT 99
[2021-09-24 21:31] LABS: Glucose, Whole Blood 177 mg/dL (60-115)
[2021-09-24] MEDS: cloZAPine 100 MG TABLET 300 MG PO (21:39)
[2021-09-24] MEDS: Divalproex Sodium ER 250 MG TAB.ER.24H 750 MG PO (21:40)
[2021-09-24] MEDS: Benztropine Mesylate 0.5 MG TABLET PO (21:40)
[2021-09-25 06:00] VITALS: BP 146/65; PULSE 82; RESP 16; TEMP 36.1; O2SAT 95
[2021-09-25 07:48] LABS: Alanine Aminotransferase 9 U/L (0-31); Albumin Level 3.3 g/dL (3.5-5.0); Alkaline Phosphatase 73 U/L (39-117); Anion Gap 11 (12-20); Aspartate Amino Transferase 10 U/L (5-31); Bilirubin Direct 0.2 mg/dL (0.0-0.5); Bilirubin Total 0.3 mg/dL (0.0-1.0); Blood Urea Nitrogen 11 mg/dL (9-16); Calcium 8.8 mg/dL (8.4-10.2); Carbon Dioxide 26 mmol/L (22-29); Chloride 109 mmol/L (96-108); Cholesterol 120 mg/dL; Creatinine Clr Calc Pharmacy 106.8; Estimated Glomerular Filt Rate > 60; Glucose Random 146 mg/dL (60-115); HDL Cholesterol 37 mg/dL; LDL Cholesterol Calculated 72 mg/dl; Potassium 4.4 mmol/L (3.3-5.1); Sodium 142 mmol/L (135-145); Triglycerides 58 mg/dL
[2021-09-25 07:51] LABS: Valproate 64.2 mcg/mL (50.0-100.0)
[2021-09-25 08:05] LABS: Glucose, Whole Blood 166 mg/dL (60-115)
[2021-09-25 08:06] LABS: Thyroid Stimulating Hormone 2.92 uIU/mL (0.32-4.0)
[2021-09-25] MEDS: metFORMIN HCl 1,000 MG TABLET 1000 MG PO ×2 (08:28→16:38)
[2021-09-25] MEDS: Aspirin Enteric Coated 81 MG TABLET.DR PO (08:28)
[2021-09-25] MEDS: Perphenazine 8 MG TABLET PO ×2 (08:29→20:46)
[2021-09-25] MEDS: lisinopriL 40 MG TABLET PO (08:29)
[2021-09-25] MEDS: Metoprolol Tartrate 100 MG TABLET PO ×2 (08:29→20:46)
[2021-09-25] MEDS: Atorvastatin Calcium 20 MG TABLET PO (08:54)
--- NOTE | 2021-09-25 13:13 | P.PNPSI_ITS ---
Subjective Subjective Date of Service: 09/25/21 Reason For Visit: schizophrenia Subjective Notes: Conditional Voluntary Interim History: The nursing staff reported the patient has been compliant with his treatment besides refusing insulin at night. Today we did blood work and her Depakote level has lowered from 70s to 64. We with free titrate accordingly. On interview, the patient reported some over-sedation in the morning. Mental Status Exam Mental Status Exam Patient Appearance: Disheveled Patient Orientation: Person and Situation Level of Consciousness: Awake Patient Behavior: Guarded and Suspicious Mood Description: Suspicious and Withdrawn Affect Description: Labile Patient Cognition Impaired: No Ability to Follow Directions: Good Speech Pattern: Clear Hallucinations: Auditory Delusions: Paranoid Ideation Judgement: Fair Diagnostics Vital Signs (24Hr): Vital Signs - 24 hr 09/24/21 21:30 Temperature 97.5 F Pulse Rate 91 Respiratory Rate 19 Blood Pressure 137/85 Pulse Oximetry 99 BMI result Body Mass Index 34.0 Labs Results: 09/19/21 10:59 09/25/21 07:15 Labs: Laboratory Results - last 48 hr 09/23/21 09/23/21 09/24/21 16:31 20:50 11:48 Sodium Potassium Chloride Carbon Dioxide Anion Gap BUN Creatinine Estim Creat Clear Calc Estimated GFR POC Glucose 190 H 216 H 166 H Random Glucose Calcium Total Bilirubin Direct Bilirubin AST ALT Alkaline Phosphatase Total Protein Albumin Triglycerides Cholesterol LDL Cholesterol, Calc HDL Cholesterol TSH Valproic Acid 09/24/21 09/25/21 09/25/21 21:27 07:15 08:01 Sodium 142 Potassium 4.4 Chloride 109 H Carbon Dioxide 26 Anion Gap 11 L BUN 11 Creatinine 0.75 Estim Creat Clear Calc 106.8 Estimated GFR > 60 POC Glucose 177 H 166 H Random Glucose 146 H Calcium 8.8 Total Bilirubin 0.3 Direct Bilirubin 0.2 AST 10 D ALT 9 Alkaline Phosphatase 73 Total Protein 6.0 L Albumin 3.3 L Triglycerides 58 Cholesterol 120 LDL Cholesterol, Calc 72 HDL Cholesterol 37 TSH 2.92 Valproic Acid 64.2 Medications Medications Current Medications Acetaminophen (Acetaminophen 325 Mg Tablet) 650 mg PO Q6H PRN PRN Reason: Headache/Pain Mild Scale (1-3) Al Hydroxide/Mg Hydroxide (Magnesium Hydrox/Alum Hydrox 30 Ml Oral.Susp) 30 ml PO Q6H PRN PRN Reason: Heartburn/Nausea Aspirin (Aspirin Enteric Coated 81 Mg Tablet.Dr) 81 mg PO DAILY [facility] Last Admin: 09/25/21 08:28 Dose: 81 mg Documented by: Atorvastatin Calcium (Atorvastatin Calcium 20 Mg Tablet) 20 mg PO DAILY [facility] Last Admin: 09/25/21 08:54 Dose: 20 mg Documented by: Benztropine Mesylate (Benztropine Mesylate 0.5 Mg Tablet) 0.5 mg PO BEDTIME [facility] Last Admin: 09/24/21 21:40 Dose: 0.5 mg Documented by: Clozapine (Clozapine 100 Mg Tablet) 300 mg PO BEDTIME [facility] Last Admin: 09/24/21 21:39 Dose: 300 mg Documented by: Divalproex Sodium (Divalproex Sodium Er 250 Mg Tab.Er.24h) 750 mg PO BEDTIME [facility] Last Admin: 09/24/21 21:40 Dose: 750 mg Documented by: Hydroxyzine HCl (Hydroxyzine Hcl 25 Mg Tablet) 25 mg PO Q6H PRN PRN Reason: Anxiety Insulin Glargine (Insulin Glargine,Hum.Rec.Anlog 100 Unit/Ml 10 Ml Vial) 25 unit SUBCUT BEDTIME [facility] Last Admin: 09/24/21 21:40 Dose: Not Given Documented by: Insulin Human Lispro (Insulin Lispro 100 Unit/Ml 3 Ml Vial) 0 unit SUBCUT QIDACHS [facility]; Protocol Last Admin: 09/25/21 08:32 Dose: Not Given Documented by: Lisinopril (Lisinopril 40 Mg Tablet) 40 mg PO DAILY [facility]; Protocol Last Admin: 09/25/21 08:29 Dose: 40 mg Documented by: Loperamide HCl (Loperamide Hcl 2 Mg Capsule) 2 mg PO Q4H PRN PRN Reason: Diarrhea Last Admin: 09/18/21 07:42 Dose: 2 mg Documented by: Magnesium Hydroxide (Milk Of Magnesia 30 Ml Oral.Susp) 30 ml PO DAILY PRN PRN Reason: Constipation Metformin HCl (Metformin Hcl 1,000 Mg Tablet) 1,000 mg PO BIDWM [facility] Last Admin: 09/25/21 08:28 Dose: 1,000 mg Documented by: Metoprolol Tartrate (Metoprolol Tartrate 100 Mg Tablet) 100 mg PO BID [facility]; Protocol Last Admin: 09/25/21 08:29 Dose: 100 mg Documented by: Oxybutynin Chloride (Oxybutynin Chloride Er 5 Mg Tab.Er.24) 5 mg PO DAILY [facility] Last Admin: 09/25/21 08:29 Dose: 5 mg Documented by: Perphenazine (Perphenazine 8 Mg Tablet) 8 mg PO BID [facility] Last Admin: 09/25/21 08:29 Dose: 8 mg Documented by: Polyethylene Glycol (Polyethylene Glycol 3350 17 Gm Powd.Pack) 17 gm PO DAILY [facility] Last Admin: 09/25/21 08:32 Dose: Not Given Documented by: Trazodone HCl (Trazodone Hcl 50 Mg Tablet) 50 mg PO BEDTIME PRN PRN Reason: Insomnia Allergies Allergies Allergy/AdvReac Type Severity Reaction Status Date / Time Sulfa (Sulfonamide Allergy Unknown UNKNOWN Verified 09/15/21 23:47 Antibiotics) [SULFA (SULFONAMIDE ANTIBIOTICS)] Assessment & Plan Assessment & Plan (1) Schizophrenia: Status: Acute Code(s): F20.9 - Schizophrenia, unspecified Assessment and Plan: presents with hallucinations and delusions and decompensation inability to care for self. Unclear circumstances around same. Continue home medications, Including clozapine 300 mg, perphenazine 8 mg daily, Depakote 750 mg at bedtime and Cogentin 0.5. Attempt to gather collateral from community providers during week days with primary team. Blood sugar management as per hospitalist evaluation. Plan The patient is an adult female who looks older than her stated age with a long history of schizophrenia, with several ancillary services such as [facility] case managing services, outpatient services, living independently with several as [facility] services. She was admitted for unclear reasons due to his chronic paranoia and chronic auditory hallucinations. plan 1. Increase Depakote up to 1000 mg po qhs. 2. Rest the same I spent __20____ minutes with the patient and/or on the patient floor today, greater than?50% of which was spent counseling/coordinating care. Reason for contiued inpatient stay Substantial Risk for: inability to function, rapid decompensation and med/psych decompensation
[2021-09-25 14:23] LABS: Glucose, Whole Blood 166 mg/dL (60-115)
[2021-09-25 16:22] LABS: Glucose, Whole Blood 196 mg/dL (60-115)
[2021-09-25 18:00] VITALS: BP 179/87; PULSE 86; RESP 18; TEMP 36.2; O2SAT 96
[2021-09-25 20:44] LABS: Glucose, Whole Blood 165 mg/dL (60-115)
[2021-09-25] MEDS: cloZAPine 100 MG TABLET 300 MG PO (20:45)
[2021-09-25] MEDS: Divalproex Sodium ER 500 MG TAB.ER.24H 1000 MG PO (20:45)
[2021-09-25] MEDS: Benztropine Mesylate 0.5 MG TABLET PO (20:46)
[2021-09-26 07:45] VITALS: BP 152/105; PULSE 82; RESP 16; TEMP 36.1; O2SAT 100
[2021-09-26 07:47] LABS: Glucose, Whole Blood 195 mg/dL (60-115)
[2021-09-26] MEDS: Metoprolol Tartrate 100 MG TABLET PO ×2 (08:14→20:05)
[2021-09-26] MEDS: Aspirin Enteric Coated 81 MG TABLET.DR PO (08:14)
[2021-09-26] MEDS: lisinopriL 40 MG TABLET PO (08:15)
[2021-09-26] MEDS: metFORMIN HCl 1,000 MG TABLET 1000 MG PO ×2 (08:15→16:43)
[2021-09-26] MEDS: Atorvastatin Calcium 20 MG TABLET PO (08:15)
[2021-09-26] MEDS: Perphenazine 8 MG TABLET PO ×2 (08:15→20:05)
[2021-09-26 08:34] LABS: Neut%MD 50.3 %; Neutrophils Absolute Auto 4.6 x10*3/uL (2.0-8.3); WBCANC 9.2 X10*3/uL
[2021-09-26 12:40] LABS: Glucose, Whole Blood 221 mg/dL (60-115)
--- NOTE | 2021-09-26 14:58 | P.PNPSI_ITS ---
Subjective Subjective Date of Service: 09/26/21 Reason For Visit: schizophrenia Subjective Notes: Conditional Voluntary Interim History: the nursing staff reported the patient has been self dialogue in and she has been irritable at times but easily redirectable. According to the [facility] director of casework department, when she is paranoid that her her children she is not at her baseline. Currently she is very paranoid against her son. On interview the patient reported mild over-sedation, explain her that her blood work showed that her Depakote level was low so I needed to increase it. Mental Status Exam Mental Status Exam Patient Appearance: Inappropriate Patient Orientation: Person and Situation Level of Consciousness: Awake Patient Behavior: Guarded and Suspicious Mood Description: Constricted Affect Description: Labile Patient Cognition Impaired: No Ability to Follow Directions: Good Speech Pattern: Clear Hallucinations: Auditory Delusions: Paranoid Ideation Thought Process: Racing and Evasive Thought Content: positive for Poverty of Content and positive for Loose Associations Judgement: Fair Diagnostics Vital Signs (24Hr): Vital Signs - 24 hr 09/25/21 18:00 09/26/21 07:45 Temperature 97.2 F 97.0 F Pulse Rate 86 82 Respiratory Rate 18 16 Blood Pressure 179/87 H 152/105 H Pulse Oximetry 96 100 BMI result Body Mass Index 34.0 Labs Results: 09/19/21 10:59 09/25/21 07:15 Labs: Laboratory Results - last 48 hr 09/24/21 09/25/21 09/25/21 21:27 07:15 08:01 Absolute Neuts (auto) Sodium 142 Potassium 4.4 Chloride 109 H Carbon Dioxide 26 Anion Gap 11 L BUN 11 Creatinine 0.75 Estim Creat Clear Calc 106.8 Estimated GFR > 60 POC Glucose 177 H 166 H Random Glucose 146 H Calcium 8.8 Total Bilirubin 0.3 Direct Bilirubin 0.2 AST 10 D ALT 9 Alkaline Phosphatase 73 Total Protein 6.0 L Albumin 3.3 L Triglycerides 58 Cholesterol 120 LDL Cholesterol, Calc 72 HDL Cholesterol 37 TSH 2.92 Valproic Acid 64.2 09/25/21 09/25/21 09/25/21 11:47 16:17 20:40 Absolute Neuts (auto) Sodium Potassium Chloride Carbon Dioxide Anion Gap BUN Creatinine Estim Creat Clear Calc Estimated GFR POC Glucose 166 H 196 H 165 H Random Glucose Calcium Total Bilirubin Direct Bilirubin AST ALT Alkaline Phosphatase Total Protein Albumin Triglycerides Cholesterol LDL Cholesterol, Calc HDL Cholesterol TSH Valproic Acid 09/26/21 09/26/21 09/26/21 07:43 07:57 12:36 Absolute Neuts (auto) 4.6 Sodium Potassium Chloride Carbon Dioxide Anion Gap BUN Creatinine Estim Creat Clear Calc Estimated GFR POC Glucose 195 H 221 H Random Glucose Calcium Total Bilirubin Direct Bilirubin AST ALT Alkaline Phosphatase Total Protein Albumin Triglycerides Cholesterol LDL Cholesterol, Calc HDL Cholesterol TSH Valproic Acid Medications Medications Current Medications Acetaminophen (Acetaminophen 325 Mg Tablet) 650 mg PO Q6H PRN PRN Reason: Headache/Pain Mild Scale (1-3) Al Hydroxide/Mg Hydroxide (Magnesium Hydrox/Alum Hydrox 30 Ml Oral.Susp) 30 ml PO Q6H PRN PRN Reason: Heartburn/Nausea Aspirin (Aspirin Enteric Coated 81 Mg Tablet.Dr) 81 mg PO DAILY [facility] Last Admin: 09/26/21 08:14 Dose: 81 mg Documented by: Atorvastatin Calcium (Atorvastatin Calcium 20 Mg Tablet) 20 mg PO DAILY [facility] Last Admin: 09/26/21 08:15 Dose: 20 mg Documented by: Benztropine Mesylate (Benztropine Mesylate 0.5 Mg Tablet) 0.5 mg PO BEDTIME [facility] Last Admin: 09/25/21 20:46 Dose: 0.5 mg Documented by: Clozapine (Clozapine 100 Mg Tablet) 300 mg PO BEDTIME [facility] Last Admin: 09/25/21 20:45 Dose: 300 mg Documented by: Divalproex Sodium (Divalproex Sodium Er 500 Mg Tab.Er.24h) 1,000 mg PO BEDTIME [facility] Last Admin: 09/25/21 20:45 Dose: 1,000 mg Documented by: Hydroxyzine HCl (Hydroxyzine Hcl 25 Mg Tablet) 25 mg PO Q6H PRN PRN Reason: Anxiety Insulin Glargine (Insulin Glargine,Hum.Rec.Anlog 100 Unit/Ml 10 Ml Vial) 25 unit SUBCUT BEDTIME [facility] Last Admin: 09/25/21 20:47 Dose: Not Given Documented by: Insulin Human Lispro (Insulin Lispro 100 Unit/Ml 3 Ml Vial) 0 unit SUBCUT QIDACHS [facility]; Protocol Last Admin: 09/26/21 13:08 Dose: Not Given Documented by: Lisinopril (Lisinopril 40 Mg Tablet) 40 mg PO DAILY [facility]; Protocol Last Admin: 09/26/21 08:15 Dose: 40 mg Documented by: Loperamide HCl (Loperamide Hcl 2 Mg Capsule) 2 mg PO Q4H PRN PRN Reason: Diarrhea Last Admin: 09/18/21 07:42 Dose: 2 mg Documented by: Magnesium Hydroxide (Milk Of Magnesia 30 Ml Oral.Susp) 30 ml PO DAILY PRN PRN Reason: Constipation Metformin HCl (Metformin Hcl 1,000 Mg Tablet) 1,000 mg PO BIDWM [facility] Last Admin: 09/26/21 08:15 Dose: 1,000 mg Documented by: Metoprolol Tartrate (Metoprolol Tartrate 100 Mg Tablet) 100 mg PO BID [facility]; Protocol Last Admin: 09/26/21 08:14 Dose: 100 mg Documented by: Oxybutynin Chloride (Oxybutynin Chloride Er 5 Mg Tab.Er.24) 5 mg PO DAILY [facility] Last Admin: 09/26/21 08:13 Dose: 5 mg Documented by: Perphenazine (Perphenazine 8 Mg Tablet) 8 mg PO BID [facility] Last Admin: 09/26/21 08:15 Dose: 8 mg Documented by: Polyethylene Glycol (Polyethylene Glycol 3350 17 Gm Powd.Pack) 17 gm PO DAILY [facility] Last Admin: 09/26/21 08:27 Dose: Not Given Documented by: Trazodone HCl (Trazodone Hcl 50 Mg Tablet) 50 mg PO BEDTIME PRN PRN Reason: Insomnia Allergies Allergies Allergy/AdvReac Type Severity Reaction Status Date / Time Sulfa (Sulfonamide Allergy Unknown UNKNOWN Verified 09/15/21 23:47 Antibiotics) [SULFA (SULFONAMIDE ANTIBIOTICS)] Assessment & Plan Assessment & Plan (1) Schizophrenia: Status: Acute Code(s): F20.9 - Schizophrenia, unspecified Assessment and Plan: presents with hallucinations and delusions and decompensation inability to care for self. Unclear circumstances around same. Continue home medications, Including clozapine 300 mg, perphenazine 8 mg daily, Depakote 750 mg at bedtime and Cogentin 0.5. Attempt to gather collateral from community providers during week days with primary team. Blood sugar management as per hospitalist evaluation. Plan The patient is an adult female who looks older than her stated age with a long history of schizophrenia, with several ancillary services such as [facility] case managing services, outpatient services, living independently with several as [facility] services. She was admitted for unclear reasons due to his chronic paranoia and chronic auditory hallucinations. plan 1. Increase Depakote up to 1000 mg po qhs. Her for Perphenazine was already increased from 8 to 16 2. Rest the same I spent ____20__ minutes with the patient and/or on the patient floor today, greater than?50% of which was spent counseling/coordinating care. Reason for contiued inpatient stay Substantial Risk for: inability to function, rapid decompensation and med/psych decompensation
[2021-09-26 16:34] LABS: Glucose, Whole Blood 187 mg/dL (60-115)
[2021-09-26 18:00] VITALS: BP 170/86; PULSE 94; RESP 20; TEMP 36.4; O2SAT 97
[2021-09-26] MEDS: Benztropine Mesylate 0.5 MG TABLET PO (20:03)
[2021-09-26] MEDS: Divalproex Sodium ER 500 MG TAB.ER.24H 1000 MG PO (20:05)
[2021-09-26] MEDS: cloZAPine 100 MG TABLET 300 MG PO (20:09)
[2021-09-26 21:00] LABS: Glucose, Whole Blood 203 mg/dL (60-115)
[2021-09-27 07:25] VITALS: BP 155/81; PULSE 82; RESP 18; TEMP 36.4; O2SAT 98
[2021-09-27 08:15] LABS: Glucose, Whole Blood 221 mg/dL (60-115)
[2021-09-27] MEDS: lisinopriL 40 MG TABLET PO (09:10)
[2021-09-27] MEDS: metFORMIN HCl 1,000 MG TABLET 1000 MG PO (09:10)
[2021-09-27] MEDS: Perphenazine 8 MG TABLET PO ×2 (09:11→20:36)
[2021-09-27] MEDS: Aspirin Enteric Coated 81 MG TABLET.DR PO (09:11)
[2021-09-27] MEDS: Atorvastatin Calcium 20 MG TABLET PO (09:11)
[2021-09-27] MEDS: Metoprolol Tartrate 100 MG TABLET PO ×2 (09:11→20:36)
[2021-09-27 11:52] LABS: Glucose, Whole Blood 160 mg/dL (60-115)
--- NOTE | 2021-09-27 13:34 | HO.PSYCHPN ---
Subjective Subjective Date of Service: 09/27/21 Reason For Visit: schizophrenia Subjective Notes: Conditional Voluntary Interim History: The nursing staff reported the patient has been fully compliant with treatment, she was seen in the unit and she has participated in a few groups, she is pleasant and cooperative but she has been seen responding to internal stimuli. On interview the patient reports that she is paranoid against her son who wants to kill her. According to the [facility] manager of case, whenever she is paranoid against her children, she is not at baseline. Mental Status Exam Mental Status Exam Patient Appearance: Appropriate and Unkempt Patient Orientation: Person and Situation Level of Consciousness: Awake Patient Behavior: Guarded and Talkative Mood Description: Withdrawn Affect Description: Constricted Patient Cognition Impaired: No Ability to Follow Directions: Good Speech Pattern: Clear Hallucinations: Auditory Delusions: Paranoid Ideation Thought Process: Racing and Distracted Thought Content: positive for [place], positive for Poverty of Content and positive for Loose Associations Judgement: Fair Diagnostics Vital Signs (24Hr): Vital Signs - 24 hr 09/26/21 18:00 09/27/21 07:25 Temperature 97.5 F 97.6 F Pulse Rate 94 82 Respiratory Rate 20 18 Blood Pressure 170/86 H 155/81 H Pulse Oximetry 97 98 BMI result Body Mass Index 34.0 Labs Results: 09/19/21 10:59 09/25/21 07:15 Labs: Laboratory Results - last 48 hr 09/25/21 09/25/21 09/25/21 11:47 16:17 20:40 Absolute Neuts (auto) POC Glucose 166 H 196 H 165 H 09/26/21 09/26/21 09/26/21 07:43 07:57 12:36 Absolute Neuts (auto) 4.6 POC Glucose 195 H 221 H 09/26/21 09/26/21 09/27/21 16:30 20:54 08:10 Absolute Neuts (auto) POC Glucose 187 H 203 H 221 H 09/27/21 11:49 Absolute Neuts (auto) POC Glucose 160 H Medications Medications Current Medications Acetaminophen (Acetaminophen 325 Mg Tablet) 650 mg PO Q6H PRN PRN Reason: Headache/Pain Mild Scale (1-3) Al Hydroxide/Mg Hydroxide (Magnesium Hydrox/Alum Hydrox 30 Ml Oral.Susp) 30 ml PO Q6H PRN PRN Reason: Heartburn/Nausea Aspirin (Aspirin Enteric Coated 81 Mg Tablet.) 81 mg PO DAILY [facility] Last Admin: 09/27/21 09:11 Dose: 81 mg Documented by: Atorvastatin Calcium (Atorvastatin Calcium 20 Mg Tablet) 20 mg PO DAILY [facility] Last Admin: 09/27/21 09:11 Dose: 20 mg Documented by: Benztropine Mesylate (Benztropine Mesylate 0.5 Mg Tablet) 0.5 mg PO BEDTIME [facility] Last Admin: 09/26/21 20:03 Dose: 0.5 mg Documented by: Clozapine (Clozapine 100 Mg Tablet) 300 mg PO BEDTIME [facility] Last Admin: 09/26/21 20:09 Dose: 300 mg Documented by: Divalproex Sodium (Divalproex Sodium Er 500 Mg Tab.Er.24h) 1,000 mg PO BEDTIME [facility] Last Admin: 09/26/21 20:05 Dose: 1,000 mg Documented by: Hydroxyzine HCl (Hydroxyzine Hcl 25 Mg Tablet) 25 mg PO Q6H PRN PRN Reason: Anxiety Insulin Glargine (Insulin Glargine,Hum.Rec.Anlog 100 Unit/Ml 10 Ml Vial) 25 unit SUBCUT BEDTIME [facility] Last Admin: 09/26/21 20:59 Dose: Not Given Documented by: Insulin Human Lispro (Insulin Lispro 100 Unit/Ml 3 Ml Vial) 0 unit SUBCUT QIDACHS [facility]; Protocol Last Admin: 09/27/21 12:36 Dose: Not Given Documented by: Lisinopril (Lisinopril 40 Mg Tablet) 40 mg PO DAILY [facility]; Protocol Last Admin: 09/27/21 09:10 Dose: 40 mg Documented by: Loperamide HCl (Loperamide Hcl 2 Mg Capsule) 2 mg PO Q4H PRN PRN Reason: Diarrhea Last Admin: 09/18/21 07:42 Dose: 2 mg Documented by: Magnesium Hydroxide (Milk Of Magnesia 30 Ml Oral.Susp) 30 ml PO DAILY PRN PRN Reason: Constipation Metformin HCl (Metformin Hcl 1,000 Mg Tablet) 1,000 mg PO BIDWM [facility] Last Admin: 09/27/21 09:10 Dose: 1,000 mg Documented by: Metoprolol Tartrate (Metoprolol Tartrate 100 Mg Tablet) 100 mg PO BID [facility]; Protocol Last Admin: 09/27/21 09:11 Dose: 100 mg Documented by: Oxybutynin Chloride (Oxybutynin Chloride Er 5 Mg Tab.Er.24) 5 mg PO DAILY [facility] Last Admin: 09/27/21 09:10 Dose: 5 mg Documented by: Perphenazine (Perphenazine 8 Mg Tablet) 8 mg PO BID [facility] Last Admin: 09/27/21 09:11 Dose: 8 mg Documented by: Polyethylene Glycol (Polyethylene Glycol 3350 17 Gm Powd.Pack) 17 gm PO DAILY [facility] Last Admin: 09/27/21 09:15 Dose: Not Given Documented by: Trazodone HCl (Trazodone Hcl 50 Mg Tablet) 50 mg PO BEDTIME PRN PRN Reason: Insomnia Allergies Allergies Allergy/AdvReac Type Severity Reaction Status Date / Time Sulfa (Sulfonamide Allergy Unknown UNKNOWN Verified 09/15/21 23:47 Antibiotics) [SULFA (SULFONAMIDE ANTIBIOTICS)] Assessment & Plan Assessment & Plan (1) Schizophrenia: Status: Acute Code(s): F20.9 - Schizophrenia, unspecified Assessment and Plan: presents with hallucinations and delusions and decompensation inability to care for self. Unclear circumstances around same. Continue home medications, Including clozapine 300 mg, perphenazine 8 mg daily, Depakote 750 mg at bedtime and Cogentin 0.5. Attempt to gather collateral from community providers during week days with primary team. Blood sugar management as per hospitalist evaluation. Plan The patient is an adult female who looks older than her stated age with a long history of schizophrenia, with several ancillary services such as [facility] case managing services, outpatient services, living independently with several as [facility] services. She was admitted for unclear reasons due to his chronic paranoia and chronic auditory hallucinations. plan 1. Increase Depakote up to 1000 mg po qhs. Her for Perphenazine was already increased from 8 to 16 2. Rest the same . 3. Depakote level and other blood work for Saturday. I spent ___20___ minutes with the patient and/or on the patient floor today, greater than?50% of which was spent counseling/coordinating care. Reason for contiued inpatient stay Substantial Risk for: inability to function, rapid decompensation and med/psych decompensation
[2021-09-27 16:44] LABS: Glucose, Whole Blood 172 mg/dL (60-115)
[2021-09-27 19:30] VITALS: BP 126/85; PULSE 101; RESP 18; TEMP 36.6; O2SAT 99
[2021-09-27] MEDS: Benztropine Mesylate 0.5 MG TABLET PO (20:36)
[2021-09-27] MEDS: cloZAPine 100 MG TABLET 300 MG PO (20:36)
[2021-09-27] MEDS: Divalproex Sodium ER 500 MG TAB.ER.24H 1000 MG PO (20:36)
[2021-09-27 20:46] LABS: Glucose, Whole Blood 242 mg/dL (60-115)
[2021-09-28 07:00] VITALS: BMI 35.0
[2021-09-28 07:15] VITALS: BP 162/77; PULSE 84; RESP 18; TEMP 36.2; O2SAT 97
[2021-09-28 07:59] LABS: Glucose, Whole Blood 253 mg/dL (60-115)
[2021-09-28] MEDS: metFORMIN HCl 1,000 MG TABLET 1000 MG PO ×2 (08:44→16:36)
[2021-09-28] MEDS: Atorvastatin Calcium 20 MG TABLET PO (08:44)
[2021-09-28] MEDS: Aspirin Enteric Coated 81 MG TABLET.DR PO (08:44)
[2021-09-28] MEDS: Metoprolol Tartrate 100 MG TABLET PO ×2 (08:45→20:28)
[2021-09-28] MEDS: Perphenazine 8 MG TABLET PO ×2 (08:45→20:28)
[2021-09-28] MEDS: lisinopriL 40 MG TABLET PO (08:45)
[2021-09-28 11:40] LABS: Glucose, Whole Blood 341 mg/dL (60-115)
[2021-09-28] MEDS: Insulin Lispro 100 UNIT/ML 3 ML VIAL SUBCUT (12:13)
--- NOTE | 2021-09-28 14:42 | P.PNPSI_ITS ---
Subjective Subjective Date of Service: 09/28/21 Reason For Visit: schizophrenia Interim History: The nursing staff reported the patient has refused her insulin last night. Her blood sugars are around 200. She was seen responding to internal stimuli but she is easily redirectable. On interview the patient requested to have Splenda instead of sugar to control her FBS Mental Status Exam Mental Status Exam Patient Appearance: Well Grooomed Patient Orientation: Person and Situation Level of Consciousness: Awake Patient Behavior: Guarded and Talkative Mood Description: Withdrawn Affect Description: Constricted Ability to Follow Directions: Good Speech Pattern: Appropriate Hallucinations: Auditory Delusions: Paranoid Ideation Thought Process: Distracted Thought Content: positive for [place], positive for [place] and positive for Poverty of Content Judgement: Fair Diagnostics Vital Signs (24Hr): Vital Signs - 24 hr 09/27/21 19:30 09/28/21 07:15 Temperature 97.9 F 97.2 F Pulse Rate 101 H 84 Respiratory Rate 18 18 Blood Pressure 126/85 162/77 H Pulse Oximetry 99 97 BMI result Body Mass Index 35.0 Labs Results: 09/19/21 10:59 09/25/21 07:15 Labs: Laboratory Results - last 48 hr 09/26/21 09/26/21 09/27/21 16:30 20:54 08:10 POC Glucose 187 H 203 H 221 H 09/27/21 09/27/21 09/27/21 11:49 16:41 20:35 POC Glucose 160 H 172 H 242 H 09/28/21 09/28/21 07:51 11:35 POC Glucose 253 H 341 H Medications Medications Current Medications Acetaminophen (Acetaminophen 325 Mg Tablet) 650 mg PO Q6H PRN PRN Reason: Headache/Pain Mild Scale (1-3) Al Hydroxide/Mg Hydroxide (Magnesium Hydrox/Alum Hydrox 30 Ml Oral.Susp) 30 ml PO Q6H PRN PRN Reason: Heartburn/Nausea Aspirin (Aspirin Enteric Coated 81 Mg Tablet.) 81 mg PO DAILY [facility] Last Admin: 09/28/21 08:44 Dose: 81 mg Documented by: Atorvastatin Calcium (Atorvastatin Calcium 20 Mg Tablet) 20 mg PO DAILY [facility] Last Admin: 09/28/21 08:44 Dose: 20 mg Documented by: Benztropine Mesylate (Benztropine Mesylate 0.5 Mg Tablet) 0.5 mg PO BEDTIME [facility] Last Admin: 09/27/21 20:36 Dose: 0.5 mg Documented by: Clozapine (Clozapine 100 Mg Tablet) 300 mg PO BEDTIME [facility] Last Admin: 09/27/21 20:36 Dose: 300 mg Documented by: Divalproex Sodium (Divalproex Sodium Er 500 Mg Tab.Er.24h) 1,000 mg PO BEDTIME [facility] Last Admin: 09/27/21 20:36 Dose: 1,000 mg Documented by: Hydroxyzine HCl (Hydroxyzine Hcl 25 Mg Tablet) 25 mg PO Q6H PRN PRN Reason: Anxiety Insulin Glargine (Insulin Glargine,Hum.Rec.Anlog 100 Unit/Ml 10 Ml Vial) 25 unit SUBCUT BEDTIME [facility] Last Admin: 09/27/21 20:40 Dose: Not Given Documented by: Insulin Human Lispro (Insulin Lispro 100 Unit/Ml 3 Ml Vial) 0 unit SUBCUT QIDACHS [facility]; Protocol Last Admin: 09/28/21 12:13 Dose: 8 unit Documented by: Lisinopril (Lisinopril 40 Mg Tablet) 40 mg PO DAILY [facility]; Protocol Last Admin: 09/28/21 08:45 Dose: 40 mg Documented by: Loperamide HCl (Loperamide Hcl 2 Mg Capsule) 2 mg PO Q4H PRN PRN Reason: Diarrhea Last Admin: 09/18/21 07:42 Dose: 2 mg Documented by: Magnesium Hydroxide (Milk Of Magnesia 30 Ml Oral.Susp) 30 ml PO DAILY PRN PRN Reason: Constipation Metformin HCl (Metformin Hcl 1,000 Mg Tablet) 1,000 mg PO BIDWM [facility] Last Admin: 09/28/21 08:44 Dose: 1,000 mg Documented by: Metoprolol Tartrate (Metoprolol Tartrate 100 Mg Tablet) 100 mg PO BID [facility]; Protocol Last Admin: 09/28/21 08:45 Dose: 100 mg Documented by: Oxybutynin Chloride (Oxybutynin Chloride Er 5 Mg Tab.Er.24) 5 mg PO DAILY [facility] Last Admin: 09/28/21 08:43 Dose: 5 mg Documented by: Perphenazine (Perphenazine 8 Mg Tablet) 8 mg PO BID [facility] Last Admin: 09/28/21 08:45 Dose: 8 mg Documented by: Polyethylene Glycol (Polyethylene Glycol 3350 17 Gm Powd.Pack) 17 gm PO DAILY [facility] Last Admin: 09/28/21 11:46 Dose: Not Given Documented by: Trazodone HCl (Trazodone Hcl 50 Mg Tablet) 50 mg PO BEDTIME PRN PRN Reason: Insomnia Allergies Allergies Allergy/AdvReac Type Severity Reaction Status Date / Time Sulfa (Sulfonamide Allergy Unknown UNKNOWN Verified 09/15/21 23:47 Antibiotics) [SULFA (SULFONAMIDE ANTIBIOTICS)] Assessment & Plan Assessment & Plan (1) Schizophrenia: Status: Acute Code(s): F20.9 - Schizophrenia, unspecified Assessment and Plan: presents with hallucinations and delusions and decompensation inability to care for self. Unclear circumstances around same. Continue home medications, Including clozapine 300 mg, perphenazine 8 mg daily, Depakote 750 mg at bedtime and Cogentin 0.5. Attempt to gather collateral from community providers during week days with primary team. Blood sugar management as per hospitalist evaluation. Plan The patient is an adult female who looks older than her stated age with a long history of schizophrenia, with several ancillary services such as [facility] case managing services, outpatient services, living independently with several as [facility] services. She was admitted for unclear reasons due to his chronic paranoia and chronic auditory hallucinations. plan 1. Increase Depakote up to 1000 mg po qhs. Her for Perphenazine was already increased from 8 to 16 2. Rest the same . 3. Depakote level and other blood work for Saturday. 4. Meeting with providers for Saturday. It seems that her paranoia is improving I spent minutes with the patient and/or on the patient floor today, greater than?50% of which was spent counseling/coordinating care. Reason for contiued inpatient stay Substantial Risk for: inability to function, rapid decompensation and med/psych decompensation
[2021-09-28 16:40] LABS: Glucose, Whole Blood 111 mg/dL (60-115)
[2021-09-28 18:00] VITALS: BP 137/77; PULSE 86; RESP 17; TEMP 36.3; O2SAT 97
[2021-09-28] MEDS: cloZAPine 100 MG TABLET 300 MG PO (20:27)
[2021-09-28] MEDS: Benztropine Mesylate 0.5 MG TABLET PO (20:27)
[2021-09-28] MEDS: Divalproex Sodium ER 500 MG TAB.ER.24H 1000 MG PO (20:27)
[2021-09-28] MEDS: Insulin Glargine,Hum.rec.anlog 100 UNIT/ML 10 ML VIAL 25 UNIT SUBCUT (20:51)
[2021-09-29 00:43] LABS: Glucose, Whole Blood 148 mg/dL (60-115)
[2021-09-29 06:37] LABS: Glucose, Whole Blood 148 mg/dL (60-115)
[2021-09-29 07:22] LABS: MANUAL DIFF FLAG NO
[2021-09-29 07:26] LABS: Basophils Percent Auto 0.5 % (0-2); Eosinophils Absolute Auto 1.1 X10*3/uL (0.0-0.4); Eosinophils Percent Auto 14.2 % (0-4); Hematocrit 29.3 % (37.0-47.0); Hemoglobin 9.3 g/dl (12.0-16.0); Imm Gran Abs Auto 0.03 X10*3/uL (0.00-0.03); Imm Gran Pct Auto 0.4 % (0.0-0.4); Lymphocytes Absolute Auto 2.6 X10*3/uL (1.2-4.9); Lymphocytes Percent Auto 33.3 % (20-40); Mean Corpuscular HGB Conc 31.7 g/dl (31.0-35.0); Mean Corpuscular Hemoglobin 29.6 pg (27.0-33.0); Mean Corpuscular Volume 93.3 fL (80.0-98.0); Mean Platelet Volume 10.5 fL (9.4-12.3); Monocytes Absolute Auto 0.6 X10*3/uL (0.1-1.2); Monocytes Percent Auto 8.2 % (2-11); Neutrophils Absolute Auto 3.4 x10*3/uL (2.0-8.3); Neutrophils Percent Auto 43.4 % (45-73); Platelet Count 238 X10*3/uL (160-400); Red Blood Count 3.14 X10*6/uL (4.20-5.50); Red Cell Distribution Width 13.5 % (11.0-16.0); White Blood Count 7.8 X10*3/uL (4.8-10.8)
[2021-09-29 07:42] LABS: Alanine Aminotransferase 9 U/L (0-31); Albumin Level 3.3 g/dL (3.5-5.0); Alkaline Phosphatase 68 U/L (39-117); Anion Gap 13 (12-20); Aspartate Amino Transferase 9 U/L (5-31); Bilirubin Direct < 0.2 mg/dL (0.0-0.5); Bilirubin Total 0.2 mg/dL (0.0-1.0); Blood Urea Nitrogen 12 mg/dL (9-16); Carbon Dioxide 25 mmol/L (22-29); Chloride 106 mmol/L (96-108); Creatinine Clr Calc Pharmacy 99.2; Estimated Glomerular Filt Rate > 60; Glucose Random 133 mg/dL (60-115); Potassium 4.5 mmol/L (3.3-5.1); Sodium 139 mmol/L (135-145); Total Protein 6.2 g/dL (6.5-8.0)
[2021-09-29 08:00] VITALS: BP 143/79; PULSE 74; RESP 18; TEMP 36; O2SAT 99
[2021-09-29] MEDS: Metoprolol Tartrate 100 MG TABLET PO ×2 (08:27→20:28)
[2021-09-29] MEDS: metFORMIN HCl 1,000 MG TABLET 1000 MG PO ×2 (08:28→17:04)
[2021-09-29] MEDS: Aspirin Enteric Coated 81 MG TABLET.DR PO (08:28)
[2021-09-29] MEDS: Perphenazine 8 MG TABLET PO ×2 (08:28→20:29)
[2021-09-29] MEDS: Atorvastatin Calcium 20 MG TABLET PO (08:28)
[2021-09-29] MEDS: lisinopriL 40 MG TABLET PO (08:28)
--- NOTE | 2021-09-29 11:02 | P.PNPSI_ITS ---
Subjective Subjective Date of Service: 09/29/21 Reason For Visit: schizophrenia Subjective Notes: Conditional Voluntary Interim History: The nursing staff reported the patient yesterday she accepted the insulin in the evening. Her blood work came back within no changes, her Depakote level is slightly higher now on a therapeutic level. On interview the patient denies new symptoms, will have a family meeting with all her outpatient providers Next Saturday. Mental Status Exam Mental Status Exam Patient Appearance: Disheveled Patient Orientation: Person Level of Consciousness: Awake Patient Behavior: Guarded and Suspicious Mood Description: Suspicious Affect Description: Labile Ability to Follow Directions: Good Speech Pattern: Clear Hallucinations: Auditory Delusions: Paranoid Ideation Thought Process: Distracted Thought Content: positive for [place] and positive for Poverty of Content Judgement: Fair Diagnostics Vital Signs (24Hr): Vital Signs - 24 hr 09/28/21 18:00 Temperature 97.4 F Pulse Rate 86 Respiratory Rate 17 Blood Pressure 137/77 Pulse Oximetry 97 BMI result Body Mass Index 35.0 Labs Results: 09/29/21 07:14 09/29/21 07:14 Labs: Laboratory Results - last 48 hr 09/27/21 09/27/21 09/27/21 11:49 16:41 20:35 WBC RBC Hgb Hct MCV MCH MCHC RDW Plt Count MPV Immature Gran % (Auto) Neut % (Auto) Lymph % (Auto) [place] % (Auto) Eos % (Auto) Baso % (Auto) Lymph # (Auto) [place] # (Auto) Eos # (Auto) Baso # (Auto) Abs Immat Gran (auto) Absolute Neuts (auto) Absolute Nucleated RBC Nucleated RBC % (auto) Sodium Potassium Chloride Carbon Dioxide Anion Gap BUN Creatinine Estim Creat Clear Calc Estimated GFR POC Glucose 160 H 172 H 242 H Random Glucose Calcium Total Bilirubin Direct Bilirubin AST ALT Alkaline Phosphatase Total Protein Albumin Valproic Acid 09/28/21 09/28/21 09/28/21 07:51 11:35 16:35 WBC RBC Hgb Hct MCV MCH MCHC RDW Plt Count MPV Immature Gran % (Auto) Neut % (Auto) Lymph % (Auto) [place] % (Auto) Eos % (Auto) Baso % (Auto) Lymph # (Auto) [place] # (Auto) Eos # (Auto) Baso # (Auto) Abs Immat Gran (auto) Absolute Neuts (auto) Absolute Nucleated RBC Nucleated RBC % (auto) Sodium Potassium Chloride Carbon Dioxide Anion Gap BUN Creatinine Estim Creat Clear Calc Estimated GFR POC Glucose 253 H 341 H 111 Random Glucose Calcium Total Bilirubin Direct Bilirubin AST ALT Alkaline Phosphatase Total Protein Albumin Valproic Acid 09/28/21 09/29/21 09/29/21 20:35 06:33 07:14 WBC 7.8 RBC 3.14 L Hgb 9.3 L Hct 29.3 L MCV 93.3 MCH 29.6 MCHC 31.7 RDW 13.5 Plt Count 238 MPV 10.5 Immature Gran % (Auto) 0.4 Neut % (Auto) 43.4 L Lymph % (Auto) 33.3 [place] % (Auto) 8.2 Eos % (Auto) 14.2 H Baso % (Auto) 0.5 Lymph # (Auto) 2.6 [place] # (Auto) 0.6 Eos # (Auto) 1.1 H Baso # (Auto) 0.0 Abs Immat Gran (auto) 0.03 Absolute Neuts (auto) 3.4 Absolute Nucleated RBC 0.000 Nucleated RBC % (auto) 0.0 Sodium Potassium Chloride Carbon Dioxide Anion Gap BUN Creatinine Estim Creat Clear Calc Estimated GFR POC Glucose 148 H 148 H Random Glucose Calcium Total Bilirubin Direct Bilirubin AST ALT Alkaline Phosphatase Total Protein Albumin Valproic Acid 09/29/21 07:14 WBC RBC Hgb Hct MCV MCH MCHC RDW Plt Count MPV Immature Gran % (Auto) Neut % (Auto) Lymph % (Auto) [place] % (Auto) Eos % (Auto) Baso % (Auto) Lymph # (Auto) [place] # (Auto) Eos # (Auto) Baso # (Auto) Abs Immat Gran (auto) Absolute Neuts (auto) Absolute Nucleated RBC Nucleated RBC % (auto) Sodium 139 Potassium 4.5 Chloride 106 Carbon Dioxide 25 Anion Gap 13 BUN 12 Creatinine 0.82 Estim Creat Clear Calc 99.2 Estimated GFR > 60 POC Glucose Random Glucose 133 H Calcium 9.0 Total Bilirubin 0.2 Direct Bilirubin < 0.2 AST 9 ALT 9 Alkaline Phosphatase 68 Total Protein 6.2 L Albumin 3.3 L Valproic Acid 78.0 Medications Medications Current Medications Acetaminophen (Acetaminophen 325 Mg Tablet) 650 mg PO Q6H PRN PRN Reason: Headache/Pain Mild Scale (1-3) Al Hydroxide/Mg Hydroxide (Magnesium Hydrox/Alum Hydrox 30 Ml Oral.Susp) 30 ml PO Q6H PRN PRN Reason: Heartburn/Nausea Aspirin (Aspirin Enteric Coated 81 Mg Tablet.) 81 mg PO DAILY [facility] Last Admin: 09/29/21 08:28 Dose: 81 mg Documented by: Atorvastatin Calcium (Atorvastatin Calcium 20 Mg Tablet) 20 mg PO DAILY [facility] Last Admin: 09/29/21 08:28 Dose: 20 mg Documented by: Benztropine Mesylate (Benztropine Mesylate 0.5 Mg Tablet) 0.5 mg PO BEDTIME [facility] Last Admin: 09/28/21 20:27 Dose: 0.5 mg Documented by: Clozapine (Clozapine 100 Mg Tablet) 300 mg PO BEDTIME [facility] Last Admin: 09/28/21 20:27 Dose: 300 mg Documented by: Divalproex Sodium (Divalproex Sodium Er 500 Mg Tab.Er.24h) 1,000 mg PO BEDTIME [facility] Last Admin: 09/28/21 20:27 Dose: 1,000 mg Documented by: Hydroxyzine HCl (Hydroxyzine Hcl 25 Mg Tablet) 25 mg PO Q6H PRN PRN Reason: Anxiety Insulin Glargine (Insulin Glargine,Hum.Rec.Anlog 100 Unit/Ml 10 Ml Vial) 25 unit SUBCUT BEDTIME [facility] Last Admin: 09/28/21 20:51 Dose: 25 unit Documented by: Insulin Human Lispro (Insulin Lispro 100 Unit/Ml 3 Ml Vial) 0 unit SUBCUT QIDACHS [facility]; Protocol Last Admin: 09/29/21 06:43 Dose: Not Given Documented by: Lisinopril (Lisinopril 40 Mg Tablet) 40 mg PO DAILY [facility]; Protocol Last Admin: 09/29/21 08:28 Dose: 40 mg Documented by: Loperamide HCl (Loperamide Hcl 2 Mg Capsule) 2 mg PO Q4H PRN PRN Reason: Diarrhea Last Admin: 09/18/21 07:42 Dose: 2 mg Documented by: Magnesium Hydroxide (Milk Of Magnesia 30 Ml Oral.Susp) 30 ml PO DAILY PRN PRN Reason: Constipation Metformin HCl (Metformin Hcl 1,000 Mg Tablet) 1,000 mg PO BIDWM [facility] Last Admin: 09/29/21 08:28 Dose: 1,000 mg Documented by: Metoprolol Tartrate (Metoprolol Tartrate 100 Mg Tablet) 100 mg PO BID [facility]; Protocol Last Admin: 09/29/21 08:27 Dose: 100 mg Documented by: Oxybutynin Chloride (Oxybutynin Chloride Er 5 Mg Tab.Er.24) 5 mg PO DAILY [facility] Last Admin: 09/29/21 08:28 Dose: 5 mg Documented by: Perphenazine (Perphenazine 8 Mg Tablet) 8 mg PO BID [facility] Last Admin: 09/29/21 08:28 Dose: 8 mg Documented by: Polyethylene Glycol (Polyethylene Glycol 3350 17 Gm Powd.Pack) 17 gm PO DAILY [facility] Last Admin: 09/29/21 09:14 Dose: Not Given Documented by: Trazodone HCl (Trazodone Hcl 50 Mg Tablet) 50 mg PO BEDTIME PRN PRN Reason: Insomnia Allergies Allergies Allergy/AdvReac Type Severity Reaction Status Date / Time Sulfa (Sulfonamide Allergy Unknown UNKNOWN Verified 09/15/21 23:47 Antibiotics) [SULFA (SULFONAMIDE ANTIBIOTICS)] Assessment & Plan Assessment & Plan (1) Schizophrenia: Status: Acute Code(s): F20.9 - Schizophrenia, unspecified Assessment and Plan: presents with hallucinations and delusions and decompensation inability to care for self. Unclear circumstances around same. Continue home medications, Including clozapine 300 mg, perphenazine 8 mg daily, Depakote 750 mg at bedtime and Cogentin 0.5. Attempt to gather collateral from community providers during week days with primary team. Blood sugar management as per hospitalist evaluation. Plan The patient is an adult female who looks older than her stated age with a long history of schizophrenia, with several ancillary services such as [facility] case managing services, outpatient services, living independently with several as [facility] services. She was admitted for unclear reasons due to his chronic paranoia and chronic auditory hallucinations. plan 1. Increase Depakote up to 1000 mg po qhs. Her for Perphenazine was already increased from 8 to 16 2. Rest the same . 3. Meeting with providers for Saturday. It seems that her paranoia is improving I spent ___20___ minutes with the patient and/or on the patient floor today, greater than?50% of which was spent counseling/coordinating care. Reason for contiued inpatient stay Substantial Risk for: inability to function, rapid decompensation and med/psych decompensation
[2021-09-29 11:56] LABS: Glucose, Whole Blood 136 mg/dL (60-115)
--- NOTE | 2021-09-29 13:22 | PC.NURSE ---
Patient was unsteady gait after the ECT this morning. She was observed closely but went back to the bathroom and had an unwitnessed fall. VS after the fall are: BP :112/69 Pulse: 107 O2: 97% Temp: 97.4. Neuro and general physical exam are negative except for a mild pain in the left elbow. Patient was keeping on close observation and will continue to be monitor.
[2021-09-29 17:01] LABS: Glucose, Whole Blood 135 mg/dL (60-115)
[2021-09-29 18:00] VITALS: BP 127/60; PULSE 87; RESP 17; TEMP 36.8; O2SAT 97
[2021-09-29] MEDS: Divalproex Sodium ER 500 MG TAB.ER.24H 1000 MG PO (20:28)
[2021-09-29] MEDS: Benztropine Mesylate 0.5 MG TABLET PO (20:28)
[2021-09-29] MEDS: cloZAPine 100 MG TABLET 300 MG PO (20:28)
[2021-09-29] MEDS: Insulin Glargine,Hum.rec.anlog 100 UNIT/ML 10 ML VIAL 25 UNIT SUBCUT (20:44)
[2021-09-29 20:53] LABS: Glucose, Whole Blood 134 mg/dL (60-115)
[2021-09-30 07:50] LABS: Glucose, Whole Blood 122 mg/dL (60-115)
[2021-09-30 08:00] VITALS: BP 191/88; PULSE 78; RESP 16; TEMP 36; O2SAT 97
[2021-09-30] MEDS: Aspirin Enteric Coated 81 MG TABLET.DR PO (08:19)
[2021-09-30] MEDS: Atorvastatin Calcium 20 MG TABLET PO (08:19)
[2021-09-30] MEDS: Metoprolol Tartrate 100 MG TABLET PO ×2 (08:19→20:41)
[2021-09-30] MEDS: metFORMIN HCl 1,000 MG TABLET 1000 MG PO ×2 (08:19→16:33)
[2021-09-30] MEDS: lisinopriL 40 MG TABLET PO (08:19)
[2021-09-30] MEDS: Perphenazine 8 MG TABLET PO ×2 (08:19→20:41)
--- NOTE | 2021-09-30 11:36 | P.PNPSI_ITS ---
Subjective Subjective Date of Service: 09/30/21 Reason For Visit: schizophrenia Interim History: pt pleasant, talkative. states her son is visitng soon and he will be working with hospital to find a new place for her to live, where her medications will be better handled. she feels she is not getting the right medications when she is home. she believes her meds are correct here and is content with her care and circumstance at the moment. per staff, denies psych Sx. talkative. +RIS. cooperative. Mental Status Exam Mental Status Exam Patient Appearance: Disheveled Patient Orientation: Person Level of Consciousness: Awake Patient Behavior: Talkative, Cooperative and Good Eye Contact Mood Description: Calm and Appropriate Affect Description: Happy and Appropriate Ability to Follow Directions: Good Speech Pattern: Clear Hallucinations: None (evident or expressed) Delusions: Not Present (none expressed) Thought Process: Intact (loose and wandering, however) Thought Content: positive for [place] Judgement: Fair Diagnostics Vital Signs (24Hr): Vital Signs - 24 hr 09/29/21 18:00 09/30/21 08:00 Temperature 98.2 F 96.8 F Pulse Rate 87 78 Respiratory Rate 17 16 Blood Pressure 127/60 191/88 H Pulse Oximetry 97 97 BMI result Body Mass Index 35.0 Labs Results: 09/29/21 07:14 09/29/21 07:14 Labs: Laboratory Results - last 48 hr 09/28/21 09/28/21 09/28/21 11:35 16:35 20:35 WBC RBC Hgb Hct MCV MCH MCHC RDW Plt Count MPV Immature Gran % (Auto) Neut % (Auto) Lymph % (Auto) [place] % (Auto) Eos % (Auto) Baso % (Auto) Lymph # (Auto) [place] # (Auto) Eos # (Auto) Baso # (Auto) Abs Immat Gran (auto) Absolute Neuts (auto) Absolute Nucleated RBC Nucleated RBC % (auto) Sodium Potassium Chloride Carbon Dioxide Anion Gap BUN Creatinine Estim Creat Clear Calc Estimated GFR POC Glucose 341 H 111 148 H Random Glucose Calcium Total Bilirubin Direct Bilirubin AST ALT Alkaline Phosphatase Total Protein Albumin Valproic Acid 09/29/21 09/29/21 09/29/21 06:33 07:14 07:14 WBC 7.8 RBC 3.14 L Hgb 9.3 L Hct 29.3 L MCV 93.3 MCH 29.6 MCHC 31.7 RDW 13.5 Plt Count 238 MPV 10.5 Immature Gran % (Auto) 0.4 Neut % (Auto) 43.4 L Lymph % (Auto) 33.3 [place] % (Auto) 8.2 Eos % (Auto) 14.2 H Baso % (Auto) 0.5 Lymph # (Auto) 2.6 [place] # (Auto) 0.6 Eos # (Auto) 1.1 H Baso # (Auto) 0.0 Abs Immat Gran (auto) 0.03 Absolute Neuts (auto) 3.4 Absolute Nucleated RBC 0.000 Nucleated RBC % (auto) 0.0 Sodium 139 Potassium 4.5 Chloride 106 Carbon Dioxide 25 Anion Gap 13 BUN 12 Creatinine 0.82 Estim Creat Clear Calc 99.2 Estimated GFR > 60 POC Glucose 148 H Random Glucose 133 H Calcium 9.0 Total Bilirubin 0.2 Direct Bilirubin < 0.2 AST 9 ALT 9 Alkaline Phosphatase 68 Total Protein 6.2 L Albumin 3.3 L Valproic Acid 78.0 09/29/21 09/29/21 09/29/21 11:52 16:55 20:43 WBC RBC Hgb Hct MCV MCH MCHC RDW Plt Count MPV Immature Gran % (Auto) Neut % (Auto) Lymph % (Auto) [place] % (Auto) Eos % (Auto) Baso % (Auto) Lymph # (Auto) [place] # (Auto) Eos # (Auto) Baso # (Auto) Abs Immat Gran (auto) Absolute Neuts (auto) Absolute Nucleated RBC Nucleated RBC % (auto) Sodium Potassium Chloride Carbon Dioxide Anion Gap BUN Creatinine Estim Creat Clear Calc Estimated GFR POC Glucose 136 H 135 H 134 H Random Glucose Calcium Total Bilirubin Direct Bilirubin AST ALT Alkaline Phosphatase Total Protein Albumin Valproic Acid 09/30/21 07:40 WBC RBC Hgb Hct MCV MCH MCHC RDW Plt Count MPV Immature Gran % (Auto) Neut % (Auto) Lymph % (Auto) [place] % (Auto) Eos % (Auto) Baso % (Auto) Lymph # (Auto) [place] # (Auto) Eos # (Auto) Baso # (Auto) Abs Immat Gran (auto) Absolute Neuts (auto) Absolute Nucleated RBC Nucleated RBC % (auto) Sodium Potassium Chloride Carbon Dioxide Anion Gap BUN Creatinine Estim Creat Clear Calc Estimated GFR POC Glucose 122 H Random Glucose Calcium Total Bilirubin Direct Bilirubin AST ALT Alkaline Phosphatase Total Protein Albumin Valproic Acid Medications Medications Current Medications Acetaminophen (Acetaminophen 325 Mg Tablet) 650 mg PO Q6H PRN PRN Reason: Headache/Pain Mild Scale (1-3) Al Hydroxide/Mg Hydroxide (Magnesium Hydrox/Alum Hydrox 30 Ml Oral.Susp) 30 ml PO Q6H PRN PRN Reason: Heartburn/Nausea Aspirin (Aspirin Enteric Coated 81 Mg Tablet.) 81 mg PO DAILY [facility] Last Admin: 09/30/21 08:19 Dose: 81 mg Documented by: Atorvastatin Calcium (Atorvastatin Calcium 20 Mg Tablet) 20 mg PO DAILY [facility] Last Admin: 09/30/21 08:19 Dose: 20 mg Documented by: Benztropine Mesylate (Benztropine Mesylate 0.5 Mg Tablet) 0.5 mg PO BEDTIME [facility] Last Admin: 09/29/21 20:28 Dose: 0.5 mg Documented by: Clozapine (Clozapine 100 Mg Tablet) 300 mg PO BEDTIME [facility] Last Admin: 09/29/21 20:28 Dose: 300 mg Documented by: Divalproex Sodium (Divalproex Sodium Er 500 Mg Tab.Er.24h) 1,000 mg PO BEDTIME [facility] Last Admin: 09/29/21 20:28 Dose: 1,000 mg Documented by: Hydroxyzine HCl (Hydroxyzine Hcl 25 Mg Tablet) 25 mg PO Q6H PRN PRN Reason: Anxiety Insulin Glargine (Insulin Glargine,Hum.Rec.Anlog 100 Unit/Ml 10 Ml Vial) 25 unit SUBCUT BEDTIME [facility] Last Admin: 09/29/21 20:44 Dose: 25 unit Documented by: Insulin Human Lispro (Insulin Lispro 100 Unit/Ml 3 Ml Vial) 0 unit SUBCUT QIDACHS [facility]; Protocol Last Admin: 09/30/21 08:20 Dose: Not Given Documented by: Lisinopril (Lisinopril 40 Mg Tablet) 40 mg PO DAILY [facility]; Protocol Last Admin: 09/30/21 08:19 Dose: 40 mg Documented by: Loperamide HCl (Loperamide Hcl 2 Mg Capsule) 2 mg PO Q4H PRN PRN Reason: Diarrhea Last Admin: 09/18/21 07:42 Dose: 2 mg Documented by: Magnesium Hydroxide (Milk Of Magnesia 30 Ml Oral.Susp) 30 ml PO DAILY PRN PRN Reason: Constipation Metformin HCl (Metformin Hcl 1,000 Mg Tablet) 1,000 mg PO BIDWM [facility] Last Admin: 09/30/21 08:19 Dose: 1,000 mg Documented by: Metoprolol Tartrate (Metoprolol Tartrate 100 Mg Tablet) 100 mg PO BID [facility]; Protocol Last Admin: 09/30/21 08:19 Dose: 100 mg Documented by: Oxybutynin Chloride (Oxybutynin Chloride Er 5 Mg Tab.Er.24) 5 mg PO DAILY [facility] Last Admin: 09/30/21 08:19 Dose: 5 mg Documented by: Perphenazine (Perphenazine 8 Mg Tablet) 8 mg PO BID [facility] Last Admin: 09/30/21 08:19 Dose: 8 mg Documented by: Polyethylene Glycol (Polyethylene Glycol 3350 17 Gm Powd.Pack) 17 gm PO DAILY [facility] Last Admin: 09/30/21 09:42 Dose: Not Given Documented by: Trazodone HCl (Trazodone Hcl 50 Mg Tablet) 50 mg PO BEDTIME PRN PRN Reason: Insomnia Allergies Allergies Allergy/AdvReac Type Severity Reaction Status Date / Time Sulfa (Sulfonamide Allergy Unknown UNKNOWN Verified 09/15/21 23:47 Antibiotics) [SULFA (SULFONAMIDE ANTIBIOTICS)] Assessment & Plan Assessment & Plan (1) Schizophrenia: Status: Acute Code(s): F20.9 - Schizophrenia, unspecified Assessment and Plan: presents with hallucinations and delusions and decompensation inability to care for self. Unclear circumstances around same. Continue home medications, Including clozapine 300 mg, perphenazine 8 mg daily, Depakote 750 mg at bedtime and Cogentin 0.5. Attempt to gather collateral from community providers during week days with primary team. Blood sugar management as per hospitalist evaluation. Plan The patient is an adult female who looks older than her stated age with a long history of schizophrenia, with several ancillary services such as [facility] case managing services, outpatient services, living independently with several as [facility] services. She was admitted for unclear reasons due to his chronic paranoia and chronic auditory hallucinations. plan 1. Increase Depakote up to 1000 mg po qhs. Her for Perphenazine was already increased from 8 to 16 2. Rest the same . 3. Meeting with providers for Saturday. It seems that her paranoia is improving I spent ___20___ minutes with the patient and/or on the patient floor today, greater than?50% of which was spent counseling/coordinating care. Reason for contiued inpatient stay Substantial Risk for: inability to function and rapid decompensation
[2021-09-30 11:42] LABS: Glucose, Whole Blood 246 mg/dL (60-115)
[2021-09-30] MEDS: Insulin Lispro 100 UNIT/ML 3 ML VIAL SUBCUT ×2 (11:46→21:03)
[2021-09-30 16:28] LABS: Glucose, Whole Blood 129 mg/dL (60-115)
[2021-09-30 18:00] VITALS: BP 133/64; PULSE 94; RESP 17; TEMP 36.5; O2SAT 95
[2021-09-30] MEDS: Divalproex Sodium ER 500 MG TAB.ER.24H 1000 MG PO (20:41)
[2021-09-30] MEDS: Benztropine Mesylate 0.5 MG TABLET PO (20:41)
[2021-09-30] MEDS: cloZAPine 100 MG TABLET 300 MG PO (20:41)
[2021-09-30 20:56] LABS: Glucose, Whole Blood 175 mg/dL (60-115)
[2021-09-30] MEDS: Insulin Glargine,Hum.rec.anlog 100 UNIT/ML 10 ML VIAL 25 UNIT SUBCUT (21:06)
[2021-10-01 07:59] LABS: Glucose, Whole Blood 91 mg/dL (60-115)
[2021-10-01 08:00] VITALS: BP 143/69; PULSE 78; RESP 18; TEMP 35.7; O2SAT 99
[2021-10-01] MEDS: Atorvastatin Calcium 20 MG TABLET PO (08:37)
[2021-10-01] MEDS: lisinopriL 40 MG TABLET PO (08:37)
[2021-10-01] MEDS: metFORMIN HCl 1,000 MG TABLET 1000 MG PO ×2 (08:37→16:55)
[2021-10-01] MEDS: Aspirin Enteric Coated 81 MG TABLET.DR PO (08:37)
[2021-10-01] MEDS: Metoprolol Tartrate 100 MG TABLET PO ×2 (08:37→20:21)
[2021-10-01] MEDS: Perphenazine 8 MG TABLET PO ×2 (08:37→20:21)
--- NOTE | 2021-10-01 10:55 | HO.PSYCHPN ---
Subjective Subjective Date of Service: 10/01/21 Reason For Visit: schizophrenia Interim History: calm, cooperative, pleasant. seated in the small meeting room talking to herself. reiterates the same information as she did yesterday - her son is coming in for a meeting tomorrow to discuss with Tx team a permanent placement for her. no complaints or requests, states she is doing good. everything's good. per staff denies anx/dep/SI. +RIS. med-compliant. POC a little elevated. Mental Status Exam Mental Status Exam Patient Appearance: Disheveled Patient Orientation: Person Level of Consciousness: Awake Patient Behavior: Talkative, Cooperative and Good Eye Contact Mood Description: Calm and Appropriate Affect Description: Happy and Appropriate Ability to Follow Directions: Good Speech Pattern: Clear Hallucinations: None (evident or expressed) Delusions: Not Present (none expressed) Thought Process: Intact (loose and wandering, however) Thought Content: positive for [place] Judgement: Fair Diagnostics Vital Signs (24Hr): Vital Signs - 24 hr 09/30/21 18:00 10/01/21 08:00 Temperature 97.7 F 96.3 F L Pulse Rate 94 78 Respiratory Rate 17 18 Blood Pressure 133/64 143/69 H Pulse Oximetry 95 99 BMI result Body Mass Index 35.0 Labs Results: 09/29/21 07:14 09/29/21 07:14 Labs: Laboratory Results - last 48 hr 09/29/21 09/29/21 09/29/21 11:52 16:55 20:43 POC Glucose 136 H 135 H 134 H 09/30/21 09/30/21 09/30/21 07:40 11:37 16:21 POC Glucose 122 H 246 H 129 H 09/30/21 10/01/21 20:39 07:52 POC Glucose 175 H 91 Medications Medications Current Medications Acetaminophen (Acetaminophen 325 Mg Tablet) 650 mg PO Q6H PRN PRN Reason: Headache/Pain Mild Scale (1-3) Al Hydroxide/Mg Hydroxide (Magnesium Hydrox/Alum Hydrox 30 Ml Oral.Susp) 30 ml PO Q6H PRN PRN Reason: Heartburn/Nausea Aspirin (Aspirin Enteric Coated 81 Mg Tablet.) 81 mg PO DAILY [facility] Last Admin: 10/01/21 08:37 Dose: 81 mg Documented by: Atorvastatin Calcium (Atorvastatin Calcium 20 Mg Tablet) 20 mg PO DAILY [facility] Last Admin: 10/01/21 08:37 Dose: 20 mg Documented by: Benztropine Mesylate (Benztropine Mesylate 0.5 Mg Tablet) 0.5 mg PO BEDTIME [facility] Last Admin: 09/30/21 20:41 Dose: 0.5 mg Documented by: Clozapine (Clozapine 100 Mg Tablet) 300 mg PO BEDTIME [facility] Last Admin: 09/30/21 20:41 Dose: 300 mg Documented by: Divalproex Sodium (Divalproex Sodium Er 500 Mg Tab.Er.24h) 1,000 mg PO BEDTIME [facility] Last Admin: 09/30/21 20:41 Dose: 1,000 mg Documented by: Hydroxyzine HCl (Hydroxyzine Hcl 25 Mg Tablet) 25 mg PO Q6H PRN PRN Reason: Anxiety Insulin Glargine (Insulin Glargine,Hum.Rec.Anlog 100 Unit/Ml 10 Ml Vial) 25 unit SUBCUT BEDTIME [facility] Last Admin: 09/30/21 21:06 Dose: 25 unit Documented by: Insulin Human Lispro (Insulin Lispro 100 Unit/Ml 3 Ml Vial) 0 unit SUBCUT QIDACHS [facility]; Protocol Last Admin: 10/01/21 08:40 Dose: Not Given Documented by: Lisinopril (Lisinopril 40 Mg Tablet) 40 mg PO DAILY [facility]; Protocol Last Admin: 10/01/21 08:37 Dose: 40 mg Documented by: Loperamide HCl (Loperamide Hcl 2 Mg Capsule) 2 mg PO Q4H PRN PRN Reason: Diarrhea Last Admin: 09/18/21 07:42 Dose: 2 mg Documented by: Magnesium Hydroxide (Milk Of Magnesia 30 Ml Oral.Susp) 30 ml PO DAILY PRN PRN Reason: Constipation Metformin HCl (Metformin Hcl 1,000 Mg Tablet) 1,000 mg PO BIDWM [facility] Last Admin: 10/01/21 08:37 Dose: 1,000 mg Documented by: Metoprolol Tartrate (Metoprolol Tartrate 100 Mg Tablet) 100 mg PO BID [facility]; Protocol Last Admin: 10/01/21 08:37 Dose: 100 mg Documented by: Oxybutynin Chloride (Oxybutynin Chloride Er 5 Mg Tab.Er.24) 5 mg PO DAILY [facility] Last Admin: 10/01/21 08:37 Dose: 5 mg Documented by: Perphenazine (Perphenazine 8 Mg Tablet) 8 mg PO BID [facility] Last Admin: 10/01/21 08:37 Dose: 8 mg Documented by: Polyethylene Glycol (Polyethylene Glycol 3350 17 Gm Powd.Pack) 17 gm PO DAILY [facility] Last Admin: 10/01/21 08:47 Dose: Not Given Documented by: Trazodone HCl (Trazodone Hcl 50 Mg Tablet) 50 mg PO BEDTIME PRN PRN Reason: Insomnia Allergies Allergies Allergy/AdvReac Type Severity Reaction Status Date / Time Sulfa (Sulfonamide Allergy Unknown UNKNOWN Verified 09/15/21 23:47 Antibiotics) [SULFA (SULFONAMIDE ANTIBIOTICS)] Assessment & Plan Assessment & Plan (1) Schizophrenia: Status: Acute Code(s): F20.9 - Schizophrenia, unspecified Assessment and Plan: presents with hallucinations and delusions and decompensation inability to care for self. Unclear circumstances around same. Continue home medications, Including clozapine 300 mg, perphenazine 8 mg daily, Depakote 750 mg at bedtime and Cogentin 0.5. Attempt to gather collateral from community providers during week days with primary team. Blood sugar management as per hospitalist evaluation. Plan The patient is an adult female who looks older than her stated age with a long history of schizophrenia, with several ancillary services such as [facility] case managing services, outpatient services, living independently with several as [facility] services. She was admitted for unclear reasons due to his chronic paranoia and chronic auditory hallucinations. plan 1. Increase Depakote up to 1000 mg po qhs. Her for Perphenazine was already increased from 8 to 16 2. Rest the same . 3. Meeting with providers for Saturday. It seems that her paranoia is improving I spent ___15___ minutes with the patient and/or on the patient floor today, greater than?50% of which was spent counseling/coordinating care. Reason for contiued inpatient stay Substantial Risk for: inability to function
[2021-10-01 11:34] LABS: Glucose, Whole Blood 202 mg/dL (60-115)
[2021-10-01] MEDS: Insulin Lispro 100 UNIT/ML 3 ML VIAL SUBCUT (11:59)
[2021-10-01 16:45] LABS: Glucose, Whole Blood 138 mg/dL (60-115)
[2021-10-01 18:00] VITALS: BP 142/90; PULSE 80; RESP 20; TEMP 36.1; O2SAT 99
[2021-10-01] MEDS: cloZAPine 100 MG TABLET 300 MG PO (20:21)
[2021-10-01] MEDS: Divalproex Sodium ER 500 MG TAB.ER.24H 1000 MG PO (20:21)
[2021-10-01] MEDS: Benztropine Mesylate 0.5 MG TABLET PO (20:21)
[2021-10-01 23:33] LABS: Glucose, Whole Blood 102 mg/dL (60-115)
[2021-10-02 07:25] VITALS: BP 150/85; PULSE 70; RESP 16; TEMP 36.1; O2SAT 96
[2021-10-02 07:49] LABS: Glucose, Whole Blood 85 mg/dL (60-115)
[2021-10-02] MEDS: Metoprolol Tartrate 100 MG TABLET PO ×2 (08:24→20:26)
[2021-10-02] MEDS: metFORMIN HCl 1,000 MG TABLET 1000 MG PO ×2 (08:24→17:37)
[2021-10-02] MEDS: Aspirin Enteric Coated 81 MG TABLET.DR PO (08:24)
[2021-10-02] MEDS: lisinopriL 40 MG TABLET PO (08:24)
[2021-10-02] MEDS: Perphenazine 8 MG TABLET PO ×2 (08:25→20:25)
[2021-10-02] MEDS: Atorvastatin Calcium 20 MG TABLET PO (08:25)
--- NOTE | 2021-10-02 08:26 | P.PNPSI_ITS ---
Subjective Subjective Date of Service: 10/02/21 Reason For Visit: schizophrenia Subjective Notes: Conditional Voluntary Interim History: The nursing staff reported the patient was pleasant and cooperative. She did refuse her insulin at night but her fasting blood sugars are on the therapeutic range. According to the nursing staff, the patient has not complained over the weekend that her son is even. According to [facility] rn case manager, whenever the patient is paranoid against her son, she is not at baseline. On interview, the patient denies new symptoms she is aware that we are going to have pretty soon meeting with her outpatient providers. Mental Status Exam Mental Status Exam Patient Appearance: Appropriate Patient Orientation: Person and Situation Level of Consciousness: Awake Patient Behavior: Guarded and Suspicious Mood Description: Suspicious Affect Description: Constricted Ability to Follow Directions: Good Speech Pattern: Clear Hallucinations: Auditory Delusions: Paranoid Ideation Thought Process: Linear Thought Content: positive for [place] and positive for Poverty of Content Judgement: Fair Diagnostics Vital Signs (24Hr): Vital Signs - 24 hr 10/01/21 18:00 Temperature 97 F Pulse Rate 80 Respiratory Rate 20 Blood Pressure 142/90 H Pulse Oximetry 99 BMI result Body Mass Index 35.0 Labs Results: 09/29/21 07:14 09/29/21 07:14 Labs: Laboratory Results - last 48 hr 09/30/21 09/30/21 09/30/21 11:37 16:21 20:39 POC Glucose 246 H 129 H 175 H 10/01/21 10/01/21 10/01/21 07:52 11:29 16:41 POC Glucose 91 202 H 138 H 10/01/21 10/02/21 20:20 07:38 POC Glucose 102 85 Medications Medications Current Medications Acetaminophen (Acetaminophen 325 Mg Tablet) 650 mg PO Q6H PRN PRN Reason: Headache/Pain Mild Scale (1-3) Al Hydroxide/Mg Hydroxide (Magnesium Hydrox/Alum Hydrox 30 Ml Oral.Susp) 30 ml PO Q6H PRN PRN Reason: Heartburn/Nausea Aspirin (Aspirin Enteric Coated 81 Mg Tablet.) 81 mg PO DAILY [facility] Last Admin: 10/01/21 08:37 Dose: 81 mg Documented by: Atorvastatin Calcium (Atorvastatin Calcium 20 Mg Tablet) 20 mg PO DAILY [facility] Last Admin: 10/01/21 08:37 Dose: 20 mg Documented by: Benztropine Mesylate (Benztropine Mesylate 0.5 Mg Tablet) 0.5 mg PO BEDTIME [facility] Last Admin: 10/01/21 20:21 Dose: 0.5 mg Documented by: Clozapine (Clozapine 100 Mg Tablet) 300 mg PO BEDTIME [facility] Last Admin: 10/01/21 20:21 Dose: 300 mg Documented by: Divalproex Sodium (Divalproex Sodium Er 500 Mg Tab.Er.24h) 1,000 mg PO BEDTIME [facility] Last Admin: 10/01/21 20:21 Dose: 1,000 mg Documented by: Hydroxyzine HCl (Hydroxyzine Hcl 25 Mg Tablet) 25 mg PO Q6H PRN PRN Reason: Anxiety Insulin Glargine (Insulin Glargine,Hum.Rec.Anlog 100 Unit/Ml 10 Ml Vial) 25 unit SUBCUT BEDTIME [facility] Last Admin: 10/01/21 20:23 Dose: Not Given Documented by: Insulin Human Lispro (Insulin Lispro 100 Unit/Ml 3 Ml Vial) 0 unit SUBCUT QIDACHS [facility]; Protocol Last Admin: 10/01/21 20:28 Dose: Not Given Documented by: Lisinopril (Lisinopril 40 Mg Tablet) 40 mg PO DAILY [facility]; Protocol Last Admin: 10/01/21 08:37 Dose: 40 mg Documented by: Loperamide HCl (Loperamide Hcl 2 Mg Capsule) 2 mg PO Q4H PRN PRN Reason: Diarrhea Last Admin: 09/18/21 07:42 Dose: 2 mg Documented by: Magnesium Hydroxide (Milk Of Magnesia 30 Ml Oral.Susp) 30 ml PO DAILY PRN PRN Reason: Constipation Metformin HCl (Metformin Hcl 1,000 Mg Tablet) 1,000 mg PO BIDWM [facility] Last Admin: 10/01/21 16:55 Dose: 1,000 mg Documented by: Metoprolol Tartrate (Metoprolol Tartrate 100 Mg Tablet) 100 mg PO BID [facility]; Protocol Last Admin: 10/01/21 20:21 Dose: 100 mg Documented by: Oxybutynin Chloride (Oxybutynin Chloride Er 5 Mg Tab.Er.24) 5 mg PO DAILY [facility] Last Admin: 10/01/21 08:37 Dose: 5 mg Documented by: Perphenazine (Perphenazine 8 Mg Tablet) 8 mg PO BID [facility] Last Admin: 10/01/21 20:21 Dose: 8 mg Documented by: Polyethylene Glycol (Polyethylene Glycol 3350 17 Gm Powd.Pack) 17 gm PO DAILY [facility] Last Admin: 10/01/21 08:47 Dose: Not Given Documented by: Trazodone HCl (Trazodone Hcl 50 Mg Tablet) 50 mg PO BEDTIME PRN PRN Reason: Insomnia Allergies Allergies Allergy/AdvReac Type Severity Reaction Status Date / Time Sulfa (Sulfonamide Allergy Unknown UNKNOWN Verified 09/15/21 23:47 Antibiotics) [SULFA (SULFONAMIDE ANTIBIOTICS)] Assessment & Plan Assessment & Plan (1) Schizophrenia: Status: Acute Code(s): F20.9 - Schizophrenia, unspecified Assessment and Plan: presents with hallucinations and delusions and decompensation inability to care for self. Unclear circumstances around same. Continue home medications, Including clozapine 300 mg, perphenazine 8 mg daily, Depakote 750 mg at bedtime and Cogentin 0.5. Attempt to gather collateral from community providers during week days with primary team. Blood sugar management as per hospitalist evaluation. Plan The patient is an adult female who looks older than her stated age with a long history of schizophrenia, with several ancillary services such as [facility] case managing services, outpatient services, living independently with several as [facility] services. She was admitted for unclear reasons due to his chronic paranoia and chronic auditory hallucinations. plan 1. Increase Depakote up to 1000 mg po qhs. Her for Perphenazine was already increased from 8 to 16 2. Rest the same . 3. Meeting with providers for Saturday. It seems that her paranoia is improving I spent ___20___ minutes with the patient and/or on the patient floor today, greater than?50% of which was spent counseling/coordinating care. Reason for contiued inpatient stay Substantial Risk for: inability to function, rapid decompensation and med/psych decompensation
[2021-10-02 12:15] LABS: Glucose, Whole Blood 123 mg/dL (60-115)
[2021-10-02 16:08] LABS: Glucose, Whole Blood 157 mg/dL (60-115)
[2021-10-02 20:22] LABS: Glucose, Whole Blood 167 mg/dL (60-115)
[2021-10-02 20:24] VITALS: BP 167/85; PULSE 86; RESP 16; TEMP 36.4; O2SAT 98
[2021-10-02] MEDS: Divalproex Sodium ER 500 MG TAB.ER.24H 1000 MG PO (20:25)
[2021-10-02] MEDS: Benztropine Mesylate 0.5 MG TABLET PO (20:25)
[2021-10-02] MEDS: cloZAPine 100 MG TABLET 300 MG PO (20:26)
[2021-10-03 07:30] VITALS: BP 150/78; PULSE 71; RESP 18; TEMP 36.1; O2SAT 99
[2021-10-03 07:54] LABS: Glucose, Whole Blood 168 mg/dL (60-115)
[2021-10-03] MEDS: lisinopriL 40 MG TABLET PO (08:44)
[2021-10-03] MEDS: Atorvastatin Calcium 20 MG TABLET PO (08:44)
[2021-10-03] MEDS: metFORMIN HCl 1,000 MG TABLET 1000 MG PO ×2 (08:45→17:59)
[2021-10-03] MEDS: Aspirin Enteric Coated 81 MG TABLET.DR PO (08:45)
[2021-10-03] MEDS: Metoprolol Tartrate 100 MG TABLET PO ×2 (08:45→21:34)
[2021-10-03] MEDS: Perphenazine 8 MG TABLET PO ×2 (08:45→21:35)
[2021-10-03 12:29] LABS: Glucose, Whole Blood 161 mg/dL (60-115)
--- NOTE | 2021-10-03 13:41 | P.PNPSI_ITS ---
Subjective Subjective Date of Service: 10/03/21 Reason For Visit: schizophrenia Subjective Notes: Conditional Voluntary Interim History: the nursing staff reported the patient has been fully compliant with her medication, she refused her insulin but her blood sugars have been stable. Yesterday we have a family meeting and the staff of [facility] stated that if she tonie ves her apartment she cannot go back and the patient is okay with that. They are waiting for a bed on a rest home. On interview the patient was self dialogue in but that is her baseline and she was cooperative and pleasant. She denies safety concerns at this moment. She is waiting for placement Review of Systems Review of Systems Yes all other systems are reviewed and are negative Mental Status Exam Mental Status Exam Patient Appearance: Disheveled Patient Orientation: Person and Situation Level of Consciousness: Awake Patient Behavior: Guarded and Cooperative Mood Description: Suspicious and Withdrawn Affect Description: Constricted Patient Cognition Impaired: No Ability to Follow Directions: Good Speech Pattern: Clear Hallucinations: Auditory Delusions: Paranoid Ideation Thought Process: Linear Thought Content: positive for [place], positive for [place] and positive for Poverty of Content Judgement: Fair Diagnostics Vital Signs (24Hr): Vital Signs - 24 hr 10/02/21 20:24 10/03/21 07:30 Temperature 97.5 F 97 F Pulse Rate 86 71 Respiratory Rate 16 18 Blood Pressure 167/85 H 150/78 H Pulse Oximetry 98 99 BMI result Body Mass Index 35.0 Labs Results: 09/29/21 07:14 09/29/21 07:14 Labs: Laboratory Results - last 48 hr 10/01/21 10/01/21 10/02/21 16:41 20:20 07:38 POC Glucose 138 H 102 85 10/02/21 10/02/21 10/02/21 12:10 16:04 20:15 POC Glucose 123 H 157 H 167 H 10/03/21 10/03/21 07:43 12:25 POC Glucose 168 H 161 H Medications Medications Current Medications Acetaminophen (Acetaminophen 325 Mg Tablet) 650 mg PO Q6H PRN PRN Reason: Headache/Pain Mild Scale (1-3) Al Hydroxide/Mg Hydroxide (Magnesium Hydrox/Alum Hydrox 30 Ml Oral.Susp) 30 ml PO Q6H PRN PRN Reason: Heartburn/Nausea Aspirin (Aspirin Enteric Coated 81 Mg Tablet.) 81 mg PO DAILY [facility] Last Admin: 10/03/21 08:45 Dose: 81 mg Documented by: Atorvastatin Calcium (Atorvastatin Calcium 20 Mg Tablet) 20 mg PO DAILY [facility] Last Admin: 10/03/21 08:44 Dose: 20 mg Documented by: Benztropine Mesylate (Benztropine Mesylate 0.5 Mg Tablet) 0.5 mg PO BEDTIME [facility] Last Admin: 10/02/21 20:25 Dose: 0.5 mg Documented by: Clozapine (Clozapine 100 Mg Tablet) 300 mg PO BEDTIME [facility] Last Admin: 10/02/21 20:26 Dose: 300 mg Documented by: Divalproex Sodium (Divalproex Sodium Er 500 Mg Tab.Er.24h) 1,000 mg PO BEDTIME [facility] Last Admin: 10/02/21 20:25 Dose: 1,000 mg Documented by: Hydroxyzine HCl (Hydroxyzine Hcl 25 Mg Tablet) 25 mg PO Q6H PRN PRN Reason: Anxiety Insulin Glargine (Insulin Glargine,Hum.Rec.Anlog 100 Unit/Ml 10 Ml Vial) 25 unit SUBCUT BEDTIME [facility] Last Admin: 10/02/21 20:29 Dose: Not Given Documented by: Insulin Human Lispro (Insulin Lispro 100 Unit/Ml 3 Ml Vial) 0 unit SUBCUT QIDACHS [facility]; Protocol Last Admin: 10/03/21 11:43 Dose: Not Given Documented by: Lisinopril (Lisinopril 40 Mg Tablet) 40 mg PO DAILY [facility]; Protocol Last Admin: 10/03/21 08:44 Dose: 40 mg Documented by: Loperamide HCl (Loperamide Hcl 2 Mg Capsule) 2 mg PO Q4H PRN PRN Reason: Diarrhea Last Admin: 09/18/21 07:42 Dose: 2 mg Documented by: Magnesium Hydroxide (Milk Of Magnesia 30 Ml Oral.Susp) 30 ml PO DAILY PRN PRN Reason: Constipation Metformin HCl (Metformin Hcl 1,000 Mg Tablet) 1,000 mg PO BIDWM [facility] Last Admin: 10/03/21 08:45 Dose: 1,000 mg Documented by: Metoprolol Tartrate (Metoprolol Tartrate 100 Mg Tablet) 100 mg PO BID [facility]; Protocol Last Admin: 10/03/21 08:45 Dose: 100 mg Documented by: Oxybutynin Chloride (Oxybutynin Chloride Er 5 Mg Tab.Er.24) 5 mg PO DAILY [facility] Last Admin: 10/03/21 08:44 Dose: 5 mg Documented by: Perphenazine (Perphenazine 8 Mg Tablet) 8 mg PO BID [facility] Last Admin: 10/03/21 08:45 Dose: 8 mg Documented by: Polyethylene Glycol (Polyethylene Glycol 3350 17 Gm Powd.Pack) 17 gm PO DAILY [facility] Last Admin: 10/03/21 08:45 Dose: Not Given Documented by: Trazodone HCl (Trazodone Hcl 50 Mg Tablet) 50 mg PO BEDTIME PRN PRN Reason: Insomnia Allergies Allergies Allergy/AdvReac Type Severity Reaction Status Date / Time Sulfa (Sulfonamide Allergy Unknown UNKNOWN Verified 09/15/21 23:47 Antibiotics) [SULFA (SULFONAMIDE ANTIBIOTICS)] Assessment & Plan Assessment & Plan (1) Schizophrenia: Status: Acute Code(s): F20.9 - Schizophrenia, unspecified Assessment and Plan: presents with hallucinations and delusions and decompensation inability to care for self. Unclear circumstances around same. Continue home medications, Including clozapine 300 mg, perphenazine 8 mg daily, Depakote 750 mg at bedtime and Cogentin 0.5. Attempt to gather collateral from community providers during week days with primary team. Blood sugar management as per hospitalist evaluation. Plan The patient is an adult female who looks older than her stated age with a long history of schizophrenia, with several ancillary services such as [facility] case managing services, outpatient services, living independently with several as [facility] services. She was admitted for unclear reasons due to his chronic paranoia and chronic auditory hallucinations. plan 1. Increase Depakote up to 1000 mg po qhs. Her for Perphenazine was already increased from 8 to 16 2. Rest the same . 3. Meeting with providers for Saturday. Waiting for placement. I spent __20____ minutes with the patient and/or on the patient floor today, greater than?50% of which was spent counseling/coordinating care. Reason for contiued inpatient stay Substantial Risk for: inability to function, rapid decompensation and med/psych decompensation
[2021-10-03 16:26] LABS: Glucose, Whole Blood 143 mg/dL (60-115)
[2021-10-03 18:00] VITALS: BP 142/91; PULSE 85; TEMP 36.7; O2SAT 97
[2021-10-03] MEDS: Benztropine Mesylate 0.5 MG TABLET PO (21:34)
[2021-10-03] MEDS: cloZAPine 100 MG TABLET 300 MG PO (21:34)
[2021-10-03] MEDS: Divalproex Sodium ER 500 MG TAB.ER.24H 1000 MG PO (21:35)
[2021-10-03 22:07] LABS: Glucose, Whole Blood 148 mg/dL (60-115)
[2021-10-04 07:10] VITALS: BP 179/80; PULSE 75; RESP 18; TEMP 36.1; O2SAT 97
[2021-10-04 08:05] LABS: Glucose, Whole Blood 143 mg/dL (60-115)
[2021-10-04] MEDS: Aspirin Enteric Coated 81 MG TABLET.DR PO (08:55)
[2021-10-04] MEDS: lisinopriL 40 MG TABLET PO (08:55)
[2021-10-04] MEDS: Metoprolol Tartrate 100 MG TABLET PO ×2 (08:55→20:36)
[2021-10-04] MEDS: Atorvastatin Calcium 20 MG TABLET PO (08:55)
[2021-10-04] MEDS: Perphenazine 8 MG TABLET PO ×2 (08:55→20:36)
[2021-10-04] MEDS: metFORMIN HCl 1,000 MG TABLET 1000 MG PO ×2 (08:55→16:58)
--- NOTE | 2021-10-04 11:47 | HO.PSYCHPN ---
Subjective Subjective Date of Service: 10/04/21 Reason For Visit: schizophrenia Subjective Notes: Conditional Voluntary Interim History: The nursing staff reported the patient has been fully compliant with treatment, his pleasant and cooperative but he has chronic psychotic symptoms with no behavioral disturbance. On interview the patient reports that she is waiting for placement she has come and she is doing fine. The social scientist reported that [facility] already refused her but we are applying to severalothers. Mental Status Exam Mental Status Exam Patient Appearance: Disheveled Patient Orientation: Person, Place and Situation Level of Consciousness: Awake Patient Behavior: Cooperative Mood Description: Withdrawn Affect Description: Constricted Patient Cognition Impaired: No Ability to Follow Directions: Good Speech Pattern: Clear Hallucinations: None Delusions: Not Present Thought Process: Distracted Thought Content: positive for [place], positive for Circumstantial and positive for Poverty of Content Judgement: Fair Diagnostics Vital Signs (24Hr): Vital Signs - 24 hr 10/03/21 18:00 10/04/21 07:10 Temperature 98.1 F 97 F Pulse Rate 85 75 Respiratory Rate 18 Blood Pressure 142/91 H 179/80 H Pulse Oximetry 97 97 BMI result Body Mass Index 35.0 Labs Results: 09/29/21 07:14 09/29/21 07:14 Labs: Laboratory Results - last 48 hr 10/02/21 10/02/21 10/02/21 12:10 16:04 20:15 POC Glucose 123 H 157 H 167 H 10/03/21 10/03/21 10/03/21 07:43 12:25 16:23 POC Glucose 168 H 161 H 143 H 10/03/21 10/04/21 22:02 07:58 POC Glucose 148 H 143 H Medications Medications Current Medications Acetaminophen (Acetaminophen 325 Mg Tablet) 650 mg PO Q6H PRN PRN Reason: Headache/Pain Mild Scale (1-3) Al Hydroxide/Mg Hydroxide (Magnesium Hydrox/Alum Hydrox 30 Ml Oral.Susp) 30 ml PO Q6H PRN PRN Reason: Heartburn/Nausea Aspirin (Aspirin Enteric Coated 81 Mg Tablet.) 81 mg PO DAILY [facility] Last Admin: 10/04/21 08:55 Dose: 81 mg Documented by: Atorvastatin Calcium (Atorvastatin Calcium 20 Mg Tablet) 20 mg PO DAILY [facility] Last Admin: 10/04/21 08:55 Dose: 20 mg Documented by: Benztropine Mesylate (Benztropine Mesylate 0.5 Mg Tablet) 0.5 mg PO BEDTIME [facility] Last Admin: 10/03/21 21:34 Dose: 0.5 mg Documented by: Clozapine (Clozapine 100 Mg Tablet) 300 mg PO BEDTIME [facility] Last Admin: 10/03/21 21:34 Dose: 300 mg Documented by: Divalproex Sodium (Divalproex Sodium Er 500 Mg Tab.Er.24h) 1,000 mg PO BEDTIME [facility] Last Admin: 10/03/21 21:35 Dose: 1,000 mg Documented by: Hydroxyzine HCl (Hydroxyzine Hcl 25 Mg Tablet) 25 mg PO Q6H PRN PRN Reason: Anxiety Insulin Glargine (Insulin Glargine,Hum.Rec.Anlog 100 Unit/Ml 10 Ml Vial) 25 unit SUBCUT BEDTIME [facility] Last Admin: 10/03/21 22:41 Dose: Not Given Documented by: Insulin Human Lispro (Insulin Lispro 100 Unit/Ml 3 Ml Vial) 0 unit SUBCUT QIDACHS [facility]; Protocol Last Admin: 10/04/21 08:55 Dose: Not Given Documented by: Lisinopril (Lisinopril 40 Mg Tablet) 40 mg PO DAILY [facility]; Protocol Last Admin: 10/04/21 08:55 Dose: 40 mg Documented by: Loperamide HCl (Loperamide Hcl 2 Mg Capsule) 2 mg PO Q4H PRN PRN Reason: Diarrhea Last Admin: 09/18/21 07:42 Dose: 2 mg Documented by: Magnesium Hydroxide (Milk Of Magnesia 30 Ml Oral.Susp) 30 ml PO DAILY PRN PRN Reason: Constipation Metformin HCl (Metformin Hcl 1,000 Mg Tablet) 1,000 mg PO BIDWM [facility] Last Admin: 10/04/21 08:55 Dose: 1,000 mg Documented by: Metoprolol Tartrate (Metoprolol Tartrate 100 Mg Tablet) 100 mg PO BID [facility]; Protocol Last Admin: 10/04/21 08:55 Dose: 100 mg Documented by: Oxybutynin Chloride (Oxybutynin Chloride Er 5 Mg Tab.Er.24) 5 mg PO DAILY [facility] Last Admin: 10/04/21 08:55 Dose: 5 mg Documented by: Perphenazine (Perphenazine 8 Mg Tablet) 8 mg PO BID [facility] Last Admin: 10/04/21 08:55 Dose: 8 mg Documented by: Polyethylene Glycol (Polyethylene Glycol 3350 17 Gm Powd.Pack) 17 gm PO DAILY [facility] Last Admin: 10/04/21 08:58 Dose: Not Given Documented by: Trazodone HCl (Trazodone Hcl 50 Mg Tablet) 50 mg PO BEDTIME PRN PRN Reason: Insomnia Allergies Allergies Allergy/AdvReac Type Severity Reaction Status Date / Time Sulfa (Sulfonamide Allergy Unknown UNKNOWN Verified 09/15/21 23:47 Antibiotics) [SULFA (SULFONAMIDE ANTIBIOTICS)] Assessment & Plan Assessment & Plan (1) Schizophrenia: Status: Acute Code(s): F20.9 - Schizophrenia, unspecified Assessment and Plan: presents with hallucinations and delusions and decompensation inability to care for self. Unclear circumstances around same. Continue home medications, Including clozapine 300 mg, perphenazine 8 mg daily, Depakote 750 mg at bedtime and Cogentin 0.5. Attempt to gather collateral from community providers during week days with primary team. Blood sugar management as per hospitalist evaluation. Plan The patient is an adult female who looks older than her stated age with a long history of schizophrenia, with several ancillary services such as [facility] case managing services, outpatient services, living independently with several as [facility] services. She was admitted for unclear reasons due to his chronic paranoia and chronic auditory hallucinations. plan 1. Increase Depakote up to 1000 mg po qhs. Her for Perphenazine was already increased from 8 to 16 2. Rest the same . 3. Meeting with providers last Saturday. Waiting for placement. I spent __20____ minutes with the patient and/or on the patient floor today, greater than?50% of which was spent counseling/coordinating care. Reason for contiued inpatient stay Substantial Risk for: inability to function, rapid decompensation and med/psych decompensation
[2021-10-04 12:18] LABS: Glucose, Whole Blood 180 mg/dL (60-115)
[2021-10-04 17:06] LABS: Glucose, Whole Blood 102 mg/dL (60-115)
[2021-10-04 20:09] VITALS: BP 160/83; PULSE 90; RESP 16; TEMP 36.6; O2SAT 98
[2021-10-04] MEDS: Divalproex Sodium ER 500 MG TAB.ER.24H 1000 MG PO (20:36)
[2021-10-04] MEDS: Benztropine Mesylate 0.5 MG TABLET PO (20:36)
[2021-10-04] MEDS: cloZAPine 100 MG TABLET 300 MG PO (20:36)
[2021-10-04 21:05] LABS: Glucose, Whole Blood 137 mg/dL (60-115)
[2021-10-05 06:00] VITALS: BP 181/107; PULSE 87; RESP 18; TEMP 36.5; O2SAT 96
[2021-10-05] MEDS: Aspirin Enteric Coated 81 MG TABLET.DR PO (09:08)
[2021-10-05] MEDS: Atorvastatin Calcium 20 MG TABLET PO (09:08)
[2021-10-05] MEDS: lisinopriL 40 MG TABLET PO (09:08)
[2021-10-05] MEDS: Perphenazine 8 MG TABLET PO ×2 (09:08→21:54)
[2021-10-05] MEDS: Metoprolol Tartrate 100 MG TABLET PO ×2 (09:08→21:54)
[2021-10-05] MEDS: metFORMIN HCl 1,000 MG TABLET 1000 MG PO ×2 (09:09→17:38)
[2021-10-05 09:51] VITALS: BP 177/79; PULSE 83; RESP 18; TEMP 36.8; O2SAT 95
[2021-10-05 11:40] LABS: Glucose, Whole Blood 246 mg/dL (60-115)
--- NOTE | 2021-10-05 16:13 | HO.PSYCHPN ---
Subjective Subjective Date of Service: 10/05/21 Reason For Visit: schizophrenia Subjective Notes: Conditional Voluntary Interim History: The nursing staff reported the patient has been doing fine, she refused her insulin at night but her fasting glucose is in therapeutic range. She has attended several groups and she has come uncooperative. The social media designer reported that she was in 9 by the [facility] but they are applying to other facilities. On interview the patient denies new symptoms she is cooperative and pleasant Mental Status Exam Mental Status Exam Patient Appearance: Well Grooomed Patient Orientation: Person and Situation Level of Consciousness: Awake Patient Behavior: Cooperative Mood Description: Withdrawn Affect Description: Constricted Ability to Follow Directions: Good Speech Pattern: Clear Hallucinations: Auditory Delusions: Paranoid Ideation Thought Process: Linear Thought Content: positive for [place], positive for Circumstantial and positive for Poverty of Content Judgement: Fair Diagnostics Vital Signs (24Hr): Vital Signs - 24 hr 10/04/21 20:09 10/05/21 06:00 10/05/21 09:51 Temperature 97.9 F 97.7 F 98.2 F Pulse Rate 90 87 83 Respiratory Rate 16 18 18 Blood Pressure 160/83 H 181/107 H 177/79 H Pulse Oximetry 98 96 95 BMI result Body Mass Index 35.0 Labs Results: 09/29/21 07:14 09/29/21 07:14 Labs: Laboratory Results - last 48 hr 10/03/21 10/03/21 10/04/21 16:23 22:02 07:58 POC Glucose 143 H 148 H 143 H 10/04/21 10/04/21 10/04/21 12:16 16:59 21:01 POC Glucose 180 H 102 137 H 10/05/21 11:38 POC Glucose 246 H Medications Medications Current Medications Acetaminophen (Acetaminophen 325 Mg Tablet) 650 mg PO Q6H PRN PRN Reason: Headache/Pain Mild Scale (1-3) Al Hydroxide/Mg Hydroxide (Magnesium Hydrox/Alum Hydrox 30 Ml Oral.Susp) 30 ml PO Q6H PRN PRN Reason: Heartburn/Nausea Aspirin (Aspirin Enteric Coated 81 Mg Tablet.) 81 mg PO DAILY [facility] Last Admin: 10/05/21 09:08 Dose: 81 mg Documented by: Atorvastatin Calcium (Atorvastatin Calcium 20 Mg Tablet) 20 mg PO DAILY [facility] Last Admin: 10/05/21 09:08 Dose: 20 mg Documented by: Benztropine Mesylate (Benztropine Mesylate 0.5 Mg Tablet) 0.5 mg PO BEDTIME [facility] Last Admin: 10/04/21 20:36 Dose: 0.5 mg Documented by: Clozapine (Clozapine 100 Mg Tablet) 300 mg PO BEDTIME [facility] Last Admin: 10/04/21 20:36 Dose: 300 mg Documented by: Divalproex Sodium (Divalproex Sodium Er 500 Mg Tab.Er.24h) 1,000 mg PO BEDTIME [facility] Last Admin: 10/04/21 20:36 Dose: 1,000 mg Documented by: Hydroxyzine HCl (Hydroxyzine Hcl 25 Mg Tablet) 25 mg PO Q6H PRN PRN Reason: Anxiety Insulin Glargine (Insulin Glargine,Hum.Rec.Anlog 100 Unit/Ml 10 Ml Vial) 25 unit SUBCUT BEDTIME [facility] Last Admin: 10/04/21 21:18 Dose: Not Given Documented by: Insulin Human Lispro (Insulin Lispro 100 Unit/Ml 3 Ml Vial) 0 unit SUBCUT QIDACHS [facility]; Protocol Last Admin: 10/05/21 12:36 Dose: Not Given Documented by: Lisinopril (Lisinopril 40 Mg Tablet) 40 mg PO DAILY [facility]; Protocol Last Admin: 10/05/21 09:08 Dose: 40 mg Documented by: Loperamide HCl (Loperamide Hcl 2 Mg Capsule) 2 mg PO Q4H PRN PRN Reason: Diarrhea Last Admin: 09/18/21 07:42 Dose: 2 mg Documented by: Magnesium Hydroxide (Milk Of Magnesia 30 Ml Oral.Susp) 30 ml PO DAILY PRN PRN Reason: Constipation Metformin HCl (Metformin Hcl 1,000 Mg Tablet) 1,000 mg PO BIDWM [facility] Last Admin: 10/05/21 09:09 Dose: 1,000 mg Documented by: Metoprolol Tartrate (Metoprolol Tartrate 100 Mg Tablet) 100 mg PO BID [facility]; Protocol Last Admin: 10/05/21 09:08 Dose: 100 mg Documented by: Oxybutynin Chloride (Oxybutynin Chloride Er 5 Mg Tab.Er.24) 5 mg PO DAILY [facility] Last Admin: 10/05/21 09:08 Dose: 5 mg Documented by: Perphenazine (Perphenazine 8 Mg Tablet) 8 mg PO BID [facility] Last Admin: 10/05/21 09:08 Dose: 8 mg Documented by: Polyethylene Glycol (Polyethylene Glycol 3350 17 Gm Powd.Pack) 17 gm PO DAILY [facility] Last Admin: 10/05/21 09:12 Dose: Not Given Documented by: Trazodone HCl (Trazodone Hcl 50 Mg Tablet) 50 mg PO BEDTIME PRN PRN Reason: Insomnia Allergies Allergies Allergy/AdvReac Type Severity Reaction Status Date / Time Sulfa (Sulfonamide Allergy Unknown UNKNOWN Verified 09/15/21 23:47 Antibiotics) [SULFA (SULFONAMIDE ANTIBIOTICS)] Assessment & Plan Assessment & Plan (1) Schizophrenia: Status: Acute Code(s): F20.9 - Schizophrenia, unspecified Assessment and Plan: presents with hallucinations and delusions and decompensation inability to care for self. Unclear circumstances around same. Continue home medications, Including clozapine 300 mg, perphenazine 8 mg daily, Depakote 750 mg at bedtime and Cogentin 0.5. Attempt to gather collateral from community providers during week days with primary team. Blood sugar management as per hospitalist evaluation. Plan The patient is an adult female who looks older than her stated age with a long history of schizophrenia, with several ancillary services such as [facility] case managing services, outpatient services, living independently with several as [facility] services. She was admitted for unclear reasons due to his chronic paranoia and chronic auditory hallucinations. plan 1. Increase Depakote up to 1000 mg po qhs. Her for Perphenazine was already increased from 8 to 16 2. Rest the same . 3. Waiting for placement. I spent ___20___ minutes with the patient and/or on the patient floor today, greater than?50% of which was spent counseling/coordinating care. Reason for contiued inpatient stay Substantial Risk for: inability to function, rapid decompensation and med/psych decompensation
[2021-10-05 16:38] LABS: Glucose, Whole Blood 147 mg/dL (60-115)
--- NOTE | 2021-10-05 17:48 | PC.NURSE ---
Pt refused insulin at lunch and dinner time, stated I don't need it, it makes me go too low .
[2021-10-05 19:58] VITALS: BP 176/78; PULSE 88; RESP 18; TEMP 36.9; O2SAT 94
[2021-10-05 21:54] LABS: Glucose, Whole Blood 147 mg/dL (60-115)
[2021-10-05] MEDS: Divalproex Sodium ER 500 MG TAB.ER.24H 1000 MG PO (21:54)
[2021-10-05] MEDS: Benztropine Mesylate 0.5 MG TABLET PO (21:54)
[2021-10-05] MEDS: cloZAPine 100 MG TABLET 300 MG PO (21:54)
[2021-10-05 22:00] VITALS: BP 206/102; PULSE 82
[2021-10-05 22:18] VITALS: BP 203/107; PULSE 84
[2021-10-05 23:00] VITALS: BP 169/89; PULSE 88
--- NOTE | 2021-10-05 23:31 | PC.NURSE ---
elevated BP'S noted this evening (see electronic record) at 2200, scheduled Metoprolol given, CAR STORER aware, night rn aware and will continue to monitor.
[2021-10-06 01:00] VITALS: BP 146/71
[2021-10-06 07:08] LABS: MANUAL DIFF FLAG NO
[2021-10-06 07:13] LABS: Basophils Absolute Auto 0.1 X10*3/uL (0.0-0.2); Basophils Percent Auto 0.5 % (0-2); Eosinophils Absolute Auto 0.7 X10*3/uL (0.0-0.4); Eosinophils Percent Auto 7.7 % (0-4); Hemoglobin 8.7 g/dl (12.0-16.0); Imm Gran Abs Auto 0.03 X10*3/uL (0.00-0.03); Imm Gran Pct Auto 0.3 % (0.0-0.4); Lymphocytes Absolute Auto 2.6 X10*3/uL (1.2-4.9); Lymphocytes Percent Auto 26.8 % (20-40); Mean Corpuscular HGB Conc 32.2 g/dl (31.0-35.0); Mean Corpuscular Hemoglobin 29.9 pg (27.0-33.0); Mean Corpuscular Volume 92.8 fL (80.0-98.0); Mean Platelet Volume 10.3 fL (9.4-12.3); Monocytes Absolute Auto 0.9 X10*3/uL (0.1-1.2); Monocytes Percent Auto 9.4 % (2-11); Neutrophils Absolute Auto 5.3 x10*3/uL (2.0-8.3); Neutrophils Percent Auto 55.3 % (45-73); Platelet Count 218 X10*3/uL (160-400); Red Blood Count 2.91 X10*6/uL (4.20-5.50); Red Cell Distribution Width 14.1 % (11.0-16.0); White Blood Count 9.7 X10*3/uL (4.8-10.8)
[2021-10-06 07:45] VITALS: BP 175/86; PULSE 82; RESP 18; TEMP 36.1; O2SAT 96
[2021-10-06 07:46] LABS: Glucose, Whole Blood 144 mg/dL (60-115)
[2021-10-06] MEDS: Atorvastatin Calcium 20 MG TABLET PO (08:05)
[2021-10-06] MEDS: Metoprolol Tartrate 100 MG TABLET PO ×2 (08:06→20:58)
[2021-10-06] MEDS: Aspirin Enteric Coated 81 MG TABLET.DR PO (08:06)
[2021-10-06] MEDS: lisinopriL 40 MG TABLET PO (08:06)
[2021-10-06] MEDS: Perphenazine 8 MG TABLET PO ×2 (08:07→20:58)
[2021-10-06] MEDS: polyethylene glycoL 3350 17 GM POWD.PACK PO (08:07)
[2021-10-06] MEDS: metFORMIN HCl 1,000 MG TABLET 1000 MG PO ×2 (08:07→16:52)
[2021-10-06 11:36] LABS: Glucose, Whole Blood 206 mg/dL (60-115)
[2021-10-06] MEDS: Magnesium Citrate 300 ML SOLUTION PO (14:49)
--- NOTE | 2021-10-06 16:16 | P.PNPSI_ITS ---
Subjective Subjective Date of Service: 10/06/21 Reason For Visit: schizophrenia Subjective Notes: Conditional Voluntary Interim History: The nursing staff reported the patient slept well, she has been fully compliant with treatment. At this moment the patient is at baseline waiting for placement. On interview the patient denies new symptoms she is waiting for the assessment of another facility for proper disposition. Mental Status Exam Mental Status Exam Patient Appearance: Well Grooomed Patient Orientation: Person, Place and Situation Level of Consciousness: Awake Patient Behavior: Cooperative Mood Description: Constricted Affect Description: Constricted Patient Cognition Impaired: No Ability to Follow Directions: Good Speech Pattern: Clear Hallucinations: Auditory Delusions: Paranoid Ideation Thought Process: Intact Thought Content: positive for Circum[place] Judgement: Fair Diagnostics Vital Signs (24Hr): Vital Signs - 24 hr 10/05/21 19:58 10/05/21 22:00 10/05/21 22:18 Temperature 98.4 F Pulse Rate 88 82 84 Respiratory Rate 18 Blood Pressure 176/78 H 206/102 H 203/107 H Pulse Oximetry 94 10/05/21 23:00 10/06/21 01:00 10/06/21 07:45 Temperature 96.9 F Pulse Rate 88 82 Respiratory Rate 18 Blood Pressure 169/89 H 146/71 H 175/86 H Pulse Oximetry 96 BMI result Body Mass Index 35.0 Labs Results: 10/06/21 07:03 09/29/21 07:14 Labs: Laboratory Results - last 48 hr 10/04/21 10/04/21 10/05/21 16:59 21:01 11:38 WBC RBC Hgb Hct MCV MCH MCHC RDW Plt Count MPV Immature Gran % (Auto) Neut % (Auto) Lymph % (Auto) [place] % (Auto) Eos % (Auto) Baso % (Auto) Lymph # (Auto) [place] # (Auto) Eos # (Auto) Baso # (Auto) Abs Immat Gran (auto) Absolute Neuts (auto) Absolute Nucleated RBC Nucleated RBC % (auto) POC Glucose 102 137 H 246 H 10/05/21 10/05/21 10/06/21 16:36 21:50 07:03 WBC 9.7 RBC 2.91 L Hgb 8.7 L Hct 27.0 L MCV 92.8 MCH 29.9 MCHC 32.2 RDW 14.1 Plt Count 218 MPV 10.3 Immature Gran % (Auto) 0.3 Neut % (Auto) 55.3 Lymph % (Auto) 26.8 [place] % (Auto) 9.4 Eos % (Auto) 7.7 H Baso % (Auto) 0.5 Lymph # (Auto) 2.6 [place] # (Auto) 0.9 Eos # (Auto) 0.7 H Baso # (Auto) 0.1 Abs Immat Gran (auto) 0.03 Absolute Neuts (auto) 5.3 Absolute Nucleated RBC 0.000 Nucleated RBC % (auto) 0.0 POC Glucose 147 H 147 H 10/06/21 10/06/21 07:44 11:33 WBC RBC Hgb Hct MCV MCH MCHC RDW Plt Count MPV Immature Gran % (Auto) Neut % (Auto) Lymph % (Auto) [place] % (Auto) Eos % (Auto) Baso % (Auto) Lymph # (Auto) [place] # (Auto) Eos # (Auto) Baso # (Auto) Abs Immat Gran (auto) Absolute Neuts (auto) Absolute Nucleated RBC Nucleated RBC % (auto) POC Glucose 144 H 206 H Medications Medications Current Medications Acetaminophen (Acetaminophen 325 Mg Tablet) 650 mg PO Q6H PRN PRN Reason: Headache/Pain Mild Scale (1-3) Al Hydroxide/Mg Hydroxide (Magnesium Hydrox/Alum Hydrox 30 Ml Oral.Susp) 30 ml PO Q6H PRN PRN Reason: Heartburn/Nausea Aspirin (Aspirin Enteric Coated 81 Mg Tablet.Dr) 81 mg PO DAILY [facility] Last Admin: 10/06/21 08:06 Dose: 81 mg Documented by: Atorvastatin Calcium (Atorvastatin Calcium 20 Mg Tablet) 20 mg PO DAILY [facility] Last Admin: 10/06/21 08:05 Dose: 20 mg Documented by: Benztropine Mesylate (Benztropine Mesylate 0.5 Mg Tablet) 0.5 mg PO BEDTIME [facility] Last Admin: 10/05/21 21:54 Dose: 0.5 mg Documented by: Clozapine (Clozapine 100 Mg Tablet) 300 mg PO BEDTIME [facility] Last Admin: 10/05/21 21:54 Dose: 300 mg Documented by: Divalproex Sodium (Divalproex Sodium Er 500 Mg Tab.Er.24h) 1,000 mg PO BEDTIME [facility] Last Admin: 10/05/21 21:54 Dose: 1,000 mg Documented by: Hydroxyzine HCl (Hydroxyzine Hcl 25 Mg Tablet) 25 mg PO Q6H PRN PRN Reason: Anxiety Insulin Glargine (Insulin Glargine,Hum.Rec.Anlog 100 Unit/Ml 10 Ml Vial) 25 unit SUBCUT BEDTIME [facility] Last Admin: 10/05/21 21:55 Dose: Not Given Documented by: Insulin Human Lispro (Insulin Lispro 100 Unit/Ml 3 Ml Vial) 0 unit SUBCUT QIDACHS [facility]; Protocol Last Admin: 10/06/21 12:41 Dose: Not Given Documented by: Lisinopril (Lisinopril 40 Mg Tablet) 40 mg PO DAILY [facility]; Protocol Last Admin: 10/06/21 08:06 Dose: 40 mg Documented by: Loperamide HCl (Loperamide Hcl 2 Mg Capsule) 2 mg PO Q4H PRN PRN Reason: Diarrhea Last Admin: 09/18/21 07:42 Dose: 2 mg Documented by: Magnesium Hydroxide (Milk Of Magnesia 30 Ml Oral.Susp) 30 ml PO DAILY PRN PRN Reason: Constipation Metformin HCl (Metformin Hcl 1,000 Mg Tablet) 1,000 mg PO BIDWM [facility] Last Admin: 10/06/21 08:07 Dose: 1,000 mg Documented by: Metoprolol Tartrate (Metoprolol Tartrate 100 Mg Tablet) 100 mg PO BID [facility]; Protocol Last Admin: 10/06/21 08:06 Dose: 100 mg Documented by: Oxybutynin Chloride (Oxybutynin Chloride Er 5 Mg Tab.Er.24) 5 mg PO DAILY [facility] Last Admin: 10/06/21 08:05 Dose: 5 mg Documented by: Perphenazine (Perphenazine 8 Mg Tablet) 8 mg PO BID [facility] Last Admin: 10/06/21 08:07 Dose: 8 mg Documented by: Polyethylene Glycol (Polyethylene Glycol 3350 17 Gm Powd.Pack) 17 gm PO DAILY [facility] Last Admin: 10/06/21 08:07 Dose: 17 gm Documented by: Trazodone HCl (Trazodone Hcl 50 Mg Tablet) 50 mg PO BEDTIME PRN PRN Reason: Insomnia Allergies Allergies Allergy/AdvReac Type Severity Reaction Status Date / Time Sulfa (Sulfonamide Allergy Unknown UNKNOWN Verified 09/15/21 23:47 Antibiotics) [SULFA (SULFONAMIDE ANTIBIOTICS)] Assessment & Plan Assessment & Plan (1) Schizophrenia: Status: Acute Code(s): F20.9 - Schizophrenia, unspecified Assessment and Plan: presents with hallucinations and delusions and decompensation inability to care for self. Unclear circumstances around same. Continue home medications, Including clozapine 300 mg, perphenazine 8 mg daily, Depakote 750 mg at bedtime and Cogentin 0.5. Attempt to gather collateral from community providers during week days with primary team. Blood sugar management as per hospitalist evaluation. Plan The patient is an adult female who looks older than her stated age with a long history of schizophrenia, with several ancillary services such as [facility] case managing services, outpatient services, living independently with several as [facility] services. She was admitted for unclear reasons due to his chronic paranoia and chronic auditory hallucinations. plan 1. Increase Depakote up to 1000 mg po qhs. Her for Perphenazine was already increased from 8 to 16 2. Rest the same . 3. Waiting for placement. I spent ___20___ minutes with the patient and/or on the patient floor today, greater than?50% of which was spent counseling/coordinating care. Reason for contiued inpatient stay Substantial Risk for: inability to function, rapid decompensation and med/psych decompensation
[2021-10-06 16:47] LABS: Glucose, Whole Blood 140 mg/dL (60-115)
[2021-10-06 18:00] VITALS: BP 160/88; PULSE 94; RESP 18; TEMP 36.2; O2SAT 98
[2021-10-06] MEDS: cloZAPine 100 MG TABLET 300 MG PO (20:58)
[2021-10-06] MEDS: Benztropine Mesylate 0.5 MG TABLET PO (20:58)
[2021-10-06] MEDS: Divalproex Sodium ER 500 MG TAB.ER.24H 1000 MG PO (20:58)
[2021-10-06 21:04] LABS: Glucose, Whole Blood 205 mg/dL (60-115)
[2021-10-06] MEDS: Insulin Lispro 100 UNIT/ML 3 ML VIAL SUBCUT (21:17)
[2021-10-07 08:13] LABS: Glucose, Whole Blood 170 mg/dL (60-115)
[2021-10-07 08:28] VITALS: BP 173/77; PULSE 75; RESP 16; TEMP 36.4; O2SAT 98
[2021-10-07] MEDS: Metoprolol Tartrate 100 MG TABLET PO ×2 (08:29→21:06)
[2021-10-07] MEDS: lisinopriL 40 MG TABLET PO (08:30)
[2021-10-07] MEDS: Perphenazine 8 MG TABLET PO ×2 (08:30→21:06)
[2021-10-07] MEDS: metFORMIN HCl 1,000 MG TABLET 1000 MG PO ×2 (08:30→16:47)
[2021-10-07] MEDS: Atorvastatin Calcium 20 MG TABLET PO (08:30)
[2021-10-07] MEDS: Aspirin Enteric Coated 81 MG TABLET.DR PO (08:31)
[2021-10-07 11:37] LABS: Glucose, Whole Blood 108 mg/dL (60-115)
--- NOTE | 2021-10-07 14:12 | P.PNPSI_ITS ---
Subjective Subjective Date of Service: 10/07/21 Reason For Visit: schizophrenia Subjective Notes: Conditional Voluntary Interim History: largely isolative. Sleep okay. Eating okay. Bowel regimen remains challenging at times. Is refusing point of care coverage. With ticket writer reported that she was looking forward to another placement such as [facility]. Feels that she is being well treated in the hospital. Denied depression, hallucinations, paranoia suicidal thoughts. Reported her sleep was good. Had no concerns regarding her physical well-being or medications. Medication Compliance: Yes Side effects from medications: No Attending Groups: Intermittent Review of Systems Acute medical concerns: No Review of Systems Review of Systems nothing acute Mental Status Exam Mental Status Exam Narrative: in room. Superficially engaged. Hospital clothing. Self-care okay. Restricted affect. No SI. No HI. No evidence of overt psychosis. Insight and judgment okay Diagnostics Vital Signs (24Hr): Vital Signs - 24 hr 10/06/21 18:00 10/07/21 08:28 Temperature 97.2 F 97.6 F Pulse Rate 94 75 Respiratory Rate 18 16 Blood Pressure 160/88 H 173/77 H Pulse Oximetry 98 98 BMI result Body Mass Index 35.0 Labs Results: 10/06/21 07:03 09/29/21 07:14 Labs: Laboratory Results - last 48 hr 10/05/21 10/05/21 10/06/21 16:36 21:50 07:03 WBC 9.7 RBC 2.91 L Hgb 8.7 L Hct 27.0 L MCV 92.8 MCH 29.9 MCHC 32.2 RDW 14.1 Plt Count 218 MPV 10.3 Immature Gran % (Auto) 0.3 Neut % (Auto) 55.3 Lymph % (Auto) 26.8 Chambers % (Auto) 9.4 Eos % (Auto) 7.7 H Baso % (Auto) 0.5 Lymph # (Auto) 2.6 Chambers # (Auto) 0.9 Eos # (Auto) 0.7 H Baso # (Auto) 0.1 Abs Immat Gran (auto) 0.03 Absolute Neuts (auto) 5.3 Absolute Nucleated RBC 0.000 Nucleated RBC % (auto) 0.0 POC Glucose 147 H 147 H 10/06/21 10/06/21 10/06/21 07:44 11:33 16:43 WBC RBC Hgb Hct MCV MCH MCHC RDW Plt Count MPV Immature Gran % (Auto) Neut % (Auto) Lymph % (Auto) Chambers % (Auto) Eos % (Auto) Baso % (Auto) Lymph # (Auto) Chambers # (Auto) Eos # (Auto) Baso # (Auto) Abs Immat Gran (auto) Absolute Neuts (auto) Absolute Nucleated RBC Nucleated RBC % (auto) POC Glucose 144 H 206 H 140 H 10/06/21 10/07/21 10/07/21 20:56 08:09 11:34 WBC RBC Hgb Hct MCV MCH MCHC RDW Plt Count MPV Immature Gran % (Auto) Neut % (Auto) Lymph % (Auto) Chambers % (Auto) Eos % (Auto) Baso % (Auto) Lymph # (Auto) Chambers # (Auto) Eos # (Auto) Baso # (Auto) Abs Immat Gran (auto) Absolute Neuts (auto) Absolute Nucleated RBC Nucleated RBC % (auto) POC Glucose 205 H 170 H 108 Medications Medications Current Medications Acetaminophen (Acetaminophen 325 Mg Tablet) 650 mg PO Q6H PRN PRN Reason: Headache/Pain Mild Scale (1-3) Al Hydroxide/Mg Hydroxide (Magnesium Hydrox/Alum Hydrox 30 Ml Oral.Susp) 30 ml PO Q6H PRN PRN Reason: Heartburn/Nausea Aspirin (Aspirin Enteric Coated 81 Mg Tablet.) 81 mg PO DAILY [facility] Last Admin: 10/07/21 08:31 Dose: 81 mg Documented by: Atorvastatin Calcium (Atorvastatin Calcium 20 Mg Tablet) 20 mg PO DAILY [facility] Last Admin: 10/07/21 08:30 Dose: 20 mg Documented by: Benztropine Mesylate (Benztropine Mesylate 0.5 Mg Tablet) 0.5 mg PO BEDTIME [facility] Last Admin: 10/06/21 20:58 Dose: 0.5 mg Documented by: Clozapine (Clozapine 100 Mg Tablet) 300 mg PO BEDTIME [facility] Last Admin: 10/06/21 20:58 Dose: 300 mg Documented by: Divalproex Sodium (Divalproex Sodium Er 500 Mg Tab.Er.24h) 1,000 mg PO BEDTIME [facility] Last Admin: 10/06/21 20:58 Dose: 1,000 mg Documented by: Hydroxyzine HCl (Hydroxyzine Hcl 25 Mg Tablet) 25 mg PO Q6H PRN PRN Reason: Anxiety Insulin Glargine (Insulin Glargine,Hum.Rec.Anlog 100 Unit/Ml 10 Ml Vial) 25 unit SUBCUT BEDTIME [facility] Last Admin: 10/06/21 21:00 Dose: Not Given Documented by: Insulin Human Lispro (Insulin Lispro 100 Unit/Ml 3 Ml Vial) 0 unit SUBCUT QIDACHS [facility]; Protocol Last Admin: 10/07/21 13:03 Dose: Not Given Documented by: Lisinopril (Lisinopril 40 Mg Tablet) 40 mg PO DAILY [facility]; Protocol Last Admin: 10/07/21 08:30 Dose: 40 mg Documented by: Loperamide HCl (Loperamide Hcl 2 Mg Capsule) 2 mg PO Q4H PRN PRN Reason: Diarrhea Last Admin: 09/18/21 07:42 Dose: 2 mg Documented by: Magnesium Hydroxide (Milk Of Magnesia 30 Ml Oral.Susp) 30 ml PO DAILY PRN PRN Reason: Constipation Metformin HCl (Metformin Hcl 1,000 Mg Tablet) 1,000 mg PO BIDWM [facility] Last Admin: 10/07/21 08:30 Dose: 1,000 mg Documented by: Metoprolol Tartrate (Metoprolol Tartrate 100 Mg Tablet) 100 mg PO BID [facility]; Protocol Last Admin: 10/07/21 08:29 Dose: 100 mg Documented by: Oxybutynin Chloride (Oxybutynin Chloride Er 5 Mg Tab.Er.24) 5 mg PO DAILY [facility] Last Admin: 10/07/21 08:31 Dose: 5 mg Documented by: Perphenazine (Perphenazine 8 Mg Tablet) 8 mg PO BID [facility] Last Admin: 10/07/21 08:30 Dose: 8 mg Documented by: Polyethylene Glycol (Polyethylene Glycol 3350 17 Gm Powd.Pack) 17 gm PO DAILY [facility] Last Admin: 10/07/21 08:34 Dose: Not Given Documented by: Trazodone HCl (Trazodone Hcl 50 Mg Tablet) 50 mg PO BEDTIME PRN PRN Reason: Insomnia Allergies Allergies Allergy/AdvReac Type Severity Reaction Status Date / Time Sulfa (Sulfonamide Allergy Unknown UNKNOWN Verified 09/15/21 23:47 Antibiotics) [SULFA (SULFONAMIDE ANTIBIOTICS)] Assessment & Plan Assessment & Plan (1) Schizophrenia: Status: Acute Code(s): F20.9 - Schizophrenia, unspecified Assessment and Plan: 10/07/2021: No changes to primary team treatment plan I spent minutes with the patient and/or on the patient floor today, great er than?50% of which was spent counseling/coordinating care. Reason for contiued inpatient stay Substantial Risk for: inability to function
[2021-10-07 16:48] LABS: Glucose, Whole Blood 114 mg/dL (60-115)
[2021-10-07 18:00] VITALS: BP 160/91; PULSE 86; RESP 17; TEMP 36.3; O2SAT 97
[2021-10-07] MEDS: cloZAPine 100 MG TABLET 300 MG PO (21:05)
[2021-10-07] MEDS: Benztropine Mesylate 0.5 MG TABLET PO (21:05)
[2021-10-07] MEDS: Divalproex Sodium ER 500 MG TAB.ER.24H 1000 MG PO (21:06)
[2021-10-07 21:15] LABS: Glucose, Whole Blood 155 mg/dL (60-115)
[2021-10-08 08:22] LABS: Glucose, Whole Blood 194 mg/dL (60-115)
[2021-10-08 08:34] VITALS: BP 187/84; PULSE 78; RESP 16; TEMP 36.3; O2SAT 97
[2021-10-08] MEDS: lisinopriL 40 MG TABLET PO (08:36)
[2021-10-08] MEDS: Aspirin Enteric Coated 81 MG TABLET.DR PO (08:36)
[2021-10-08] MEDS: metFORMIN HCl 1,000 MG TABLET 1000 MG PO ×2 (08:36→16:47)
[2021-10-08] MEDS: Atorvastatin Calcium 20 MG TABLET PO (08:37)
[2021-10-08] MEDS: Metoprolol Tartrate 100 MG TABLET PO ×2 (08:37→20:58)
[2021-10-08] MEDS: Perphenazine 8 MG TABLET PO ×2 (08:37→20:58)
[2021-10-08 11:43] LABS: Glucose, Whole Blood 224 mg/dL (60-115)
[2021-10-08] MEDS: Insulin Lispro 100 UNIT/ML 3 ML VIAL SUBCUT (11:50)
--- NOTE | 2021-10-08 14:36 | P.PNPSI_ITS ---
Subjective Subjective Date of Service: 10/08/21 Reason For Visit: schizophrenia Interim History: remains largely isolative. Denied depression, hallucinations, paranoia suicidal thoughts. Reported her sleep was good. Had no concerns regarding her physical well-being or medications. Medication Compliance: Yes Side effects from medications: No Attending Groups: No Review of Systems Acute medical concerns: No Review of Systems Review of Systems nothing acute Mental Status Exam Mental Status Exam Narrative: in room. Superficially engaged. Hospital clothing. Self-care okay. Restric lilliam affect. No SI. No HI. No evidence of overt psychosis. Insight and judgment okay Diagnostics Vital Signs (24Hr): Vital Signs - 24 hr 10/07/21 18:00 10/08/21 08:34 Temperature 97.4 F 97.3 F Pulse Rate 86 78 Respiratory Rate 17 16 Blood Pressure 160/91 H 187/84 H Pulse Oximetry 97 97 BMI result Body Mass Index 35.0 Labs Results: 10/06/21 07:03 09/29/21 07:14 Labs: Laboratory Results - last 48 hr 10/06/21 10/06/21 10/07/21 16:43 20:56 08:09 POC Glucose 140 H 205 H 170 H 10/07/21 10/07/21 10/07/21 11:34 16:44 21:03 POC Glucose 108 114 155 H 10/08/21 10/08/21 08:18 11:40 POC Glucose 194 H 224 H Medications Medications Current Medications Acetaminophen (Acetaminophen 325 Mg Tablet) 650 mg PO Q6H PRN PRN Reason: Headache/Pain Mild Scale (1-3) Al Hydroxide/Mg Hydroxide (Magnesium Hydrox/Alum Hydrox 30 Ml Oral.Susp) 30 ml PO Q6H PRN PRN Reason: Heartburn/Nausea Aspirin (Aspirin Enteric Coated 81 Mg Tablet.) 81 mg PO DAILY [facility] Last Admin: 10/08/21 08:36 Dose: 81 mg Documented by: Atorvastatin Calcium (Atorvastatin Calcium 20 Mg Tablet) 20 mg PO DAILY [facility] Last Admin: 10/08/21 08:37 Dose: 20 mg Documented by: Benztropine Mesylate (Benztropine Mesylate 0.5 Mg Tablet) 0.5 mg PO BEDTIME [facility] Last Admin: 10/07/21 21:05 Dose: 0.5 mg Documented by: Clozapine (Clozapine 100 Mg Tablet) 300 mg PO BEDTIME [facility] Last Admin: 10/07/21 21:05 Dose: 300 mg Documented by: Divalproex Sodium (Divalproex Sodium Er 500 Mg Tab.Er.24h) 1,000 mg PO BEDTIME [facility] Last Admin: 10/07/21 21:06 Dose: 1,000 mg Documented by: Hydroxyzine HCl (Hydroxyzine Hcl 25 Mg Tablet) 25 mg PO Q6H PRN PRN Reason: Anxiety Insulin Glargine (Insulin Glargine,Hum.Rec.Anlog 100 Unit/Ml 10 Ml Vial) 25 unit SUBCUT BEDTIME [facility] Last Admin: 10/07/21 21:09 Dose: Not Given Documented by: Insulin Human Lispro (Insulin Lispro 100 Unit/Ml 3 Ml Vial) 0 unit SUBCUT QIDACHS [facility]; Protocol Last Admin: 10/08/21 11:50 Dose: 4 unit Documented by: Lisinopril (Lisinopril 40 Mg Tablet) 40 mg PO DAILY [facility]; Protocol Last Admin: 10/08/21 08:36 Dose: 40 mg Documented by: Loperamide HCl (Loperamide Hcl 2 Mg Capsule) 2 mg PO Q4H PRN PRN Reason: Diarrhea Last Admin: 09/18/21 07:42 Dose: 2 mg Documented by: Magnesium Hydroxide (Milk Of Magnesia 30 Ml Oral.Susp) 30 ml PO DAILY PRN PRN Reason: Constipation Metformin HCl (Metformin Hcl 1,000 Mg Tablet) 1,000 mg PO BIDWM [facility] Last Admin: 10/08/21 08:36 Dose: 1,000 mg Documented by: Metoprolol Tartrate (Metoprolol Tartrate 100 Mg Tablet) 100 mg PO BID [facility]; Protocol Last Admin: 10/08/21 08:37 Dose: 100 mg Documented by: Oxybutynin Chloride (Oxybutynin Chloride Er 5 Mg Tab.Er.24) 5 mg PO DAILY [facility] Last Admin: 10/08/21 08:37 Dose: 5 mg Documented by: Perphenazine (Perphenazine 8 Mg Tablet) 8 mg PO BID [facility] Last Admin: 10/08/21 08:37 Dose: 8 mg Documented by: Polyethylene Glycol (Polyethylene Glycol 3350 17 Gm Powd.Pack) 17 gm PO DAILY [facility] Last Admin: 10/08/21 08:38 Dose: Not Given Documented by: Trazodone HCl (Trazodone Hcl 50 Mg Tablet) 50 mg PO BEDTIME PRN PRN Reason: Insomnia Allergies Allergies Allergy/AdvReac Type Severity Reaction Status Date / Time Sulfa (Sulfonamide Allergy Unknown UNKNOWN Verified 09/15/21 23:47 Antibiotics) [SULFA (SULFONAMIDE ANTIBIOTICS)] Assessment & Plan Assessment & Plan (1) Schizophrenia: Status: Acute Code(s): F20.9 - Schizophrenia, unspecified Assessment and Plan: 10/08/2021: No changes to primary team treatment plan I spent minutes with the patient and/or on the patient floor today, greater than?50% of which was spent counseling/coordinating care. Reason for contiued inpatient stay Substantial Risk for: rapid decompensation
[2021-10-08 16:48] LABS: Glucose, Whole Blood 105 mg/dL (60-115)
[2021-10-08 18:00] VITALS: BP 174/73; PULSE 77; RESP 16; TEMP 36.4; O2SAT 95
[2021-10-08 20:47] LABS: Glucose, Whole Blood 111 mg/dL (60-115)
[2021-10-08] MEDS: cloZAPine 100 MG TABLET 300 MG PO (20:57)
[2021-10-08] MEDS: Divalproex Sodium ER 500 MG TAB.ER.24H 1000 MG PO (20:58)
[2021-10-08] MEDS: Benztropine Mesylate 0.5 MG TABLET PO (20:59)
[2021-10-09 06:00] VITALS: BP 172/101; PULSE 83; RESP 18; TEMP 36.4; O2SAT 96
[2021-10-09 07:53] LABS: Glucose, Whole Blood 245 mg/dL (60-115)
[2021-10-09] MEDS: lisinopriL 40 MG TABLET PO (08:16)
[2021-10-09] MEDS: Aspirin Enteric Coated 81 MG TABLET.DR PO (08:16)
[2021-10-09] MEDS: Atorvastatin Calcium 20 MG TABLET PO (08:16)
[2021-10-09] MEDS: metFORMIN HCl 1,000 MG TABLET 1000 MG PO ×2 (08:16→18:25)
[2021-10-09] MEDS: polyethylene glycoL 3350 17 GM POWD.PACK PO (08:16)
[2021-10-09] MEDS: Perphenazine 8 MG TABLET PO ×2 (08:16→21:05)
[2021-10-09] MEDS: Metoprolol Tartrate 100 MG TABLET PO ×2 (08:16→21:05)
[2021-10-09 08:30] LABS: Creatinine Clr Calc Pharmacy 95.7; Estimated Glomerular Filt Rate > 60
[2021-10-09] MEDS: Milk of Magnesia 30 ML ORAL.SUSP PO (10:11)
[2021-10-09 12:10] LABS: Glucose, Whole Blood 162 mg/dL (60-115)
[2021-10-09 17:13] LABS: Glucose, Whole Blood 166 mg/dL (60-115)
[2021-10-09 18:00] VITALS: BP 172/109; PULSE 80; RESP 16; TEMP 36.4; O2SAT 98
--- NOTE | 2021-10-09 20:38 | HO.PSYCHPN ---
Subjective Subjective Date of Service: 10/09/21 Reason For Visit: schizophrenia Interim History: If 56-year-old history of schizophrenia on long-acting injectable. Some bizarre interaction somatically delusional regarding her eyes Mental Status Exam Mental Status Exam Patient Appearance: Well Grooomed Patient Orientation: Person, Place and Situation Level of Consciousness: Awake Patient Behavior: Cooperative Mood Description: Constricted Affect Description: Constricted Patient Cognition Impaired: No Ability to Follow Directions: Good Speech Pattern: Clear Hallucinations: Auditory Delusions: Paranoid Ideation Thought Process: Intact Thought Content: positive for Circumstantial Judgement: Fair Diagnostics Vital Signs (24Hr): Vital Signs - 24 hr 10/09/21 06:00 Temperature 97.5 F Pulse Rate 83 Respiratory Rate 18 Blood Pressure 172/101 H Pulse Oximetry 96 BMI result Body Mass Index 35.0 Labs Results: 10/06/21 07:03 10/09/21 08:05 Labs: Laboratory Results - last 48 hr 10/07/21 10/08/21 10/08/21 21:03 08:18 11:40 Creatinine Estim Creat Clear Calc Estimated GFR POC Glucose 155 H 194 H 224 H 10/08/21 10/08/21 10/09/21 16:45 20:38 07:49 Creatinine Estim Creat Clear Calc Estimated GFR POC Glucose 105 111 245 H 10/09/21 10/09/21 10/09/21 08:05 12:06 17:10 Creatinine 0.85 Estim Creat Clear Calc 95.7 Estimated GFR > 60 POC Glucose 162 H 166 H Medications Medications Current Medications Acetaminophen (Acetaminophen 325 Mg Tablet) 650 mg PO Q6H PRN PRN Reason: Headache/Pain Mild Scale (1-3) Al Hydroxide/Mg Hydroxide (Magnesium Hydrox/Alum Hydrox 30 Ml Oral.Susp) 30 ml PO Q6H PRN PRN Reason: Heartburn/Nausea Aspirin (Aspirin Enteric Coated 81 Mg Tablet.) 81 mg PO DAILY [facility] Last Admin: 10/09/21 08:16 Dose: 81 mg Documented by: Atorvastatin Calcium (Atorvastatin Calcium 20 Mg Tablet) 20 mg PO DAILY [facility] Last Admin: 10/09/21 08:16 Dose: 20 mg Documented by: Benztropine Mesylate (Benztropine Mesylate 0.5 Mg Tablet) 0.5 mg PO BEDTIME [facility] Last Admin: 10/08/21 20:59 Dose: 0.5 mg Documented by: Clozapine (Clozapine 100 Mg Tablet) 300 mg PO BEDTIME [facility] Last Admin: 10/08/21 20:57 Dose: 300 mg Documented by: Divalproex Sodium (Divalproex Sodium Er 500 Mg Tab.Er.24h) 1,000 mg PO BEDTIME [facility] Last Admin: 10/08/21 20:58 Dose: 1,000 mg Documented by: Docusate Sodium (Docusate Sodium 100 Mg Capsule) 100 mg PO BID [facility] Hydroxyzine HCl (Hydroxyzine Hcl 25 Mg Tablet) 25 mg PO Q6H PRN PRN Reason: Anxiety Insulin Glargine (Insulin Glargine,Hum.Rec.Anlog 100 Unit/Ml 10 Ml Vial) 25 unit SUBCUT BEDTIME [facility] Last Admin: 10/08/21 21:00 Dose: Not Given Documented by: Insulin Human Lispro (Insulin Lispro 100 Unit/Ml 3 Ml Vial) 0 unit SUBCUT QIDACHS [facility]; Protocol Last Admin: 10/09/21 17:20 Dose: Not Given Documented by: Lisinopril (Lisinopril 40 Mg Tablet) 40 mg PO DAILY [facility]; Protocol Last Admin: 10/09/21 08:16 Dose: 40 mg Documented by: Loperamide HCl (Loperamide Hcl 2 Mg Capsule) 2 mg PO Q4H PRN PRN Reason: Diarrhea Last Admin: 09/18/21 07:42 Dose: 2 mg Documented by: Magnesium Hydroxide (Milk Of Magnesia 30 Ml Oral.Susp) 30 ml PO DAILY PRN PRN Reason: Constipation Last Admin: 10/09/21 10:11 Dose: 30 ml Documented by: Metformin HCl (Metformin Hcl 1,000 Mg Tablet) 1,000 mg PO BIDWM [facility] Last Admin: 10/09/21 18:25 Dose: 1,000 mg Documented by: Metoprolol Tartrate (Metoprolol Tartrate 100 Mg Tablet) 100 mg PO BID [facility]; Protocol Last Admin: 10/09/21 08:16 Dose: 100 mg Documented by: Oxybutynin Chloride (Oxybutynin Chloride Er 5 Mg Tab.Er.24) 5 mg PO DAILY [facility] Last Admin: 10/09/21 08:16 Dose: 5 mg Documented by: Perphenazine (Perphenazine 8 Mg Tablet) 8 mg PO BID [facility] Last Admin: 10/09/21 08:16 Dose: 8 mg Documented by: Polyethylene Glycol (Polyethylene Glycol 3350 17 Gm Powd.Pack) 17 gm PO BEDTIME [facility] Trazodone HCl (Trazodone Hcl 50 Mg Tablet) 50 mg PO BEDTIME PRN PRN Reason: Insomnia Allergies Allergies Allergy/AdvReac Type Severity Reaction Status Date / Time Sulfa (Sulfonamide Allergy Unknown UNKNOWN Verified 09/15/21 23:47 Antibiotics) [SULFA (SULFONAMIDE ANTIBIOTICS)] Assessment & Plan Assessment & Plan (1) Schizophrenia: Status: Acute Code(s): F20.9 - Schizophrenia, unspecified Assessment and Plan: 10/08/2021: No changes to primary team treatment plan 10/09/2021 Case reviewed with staff chart reviewed patient seen continue clozapine and perphenazine I spent minutes with the patient and/or on the patient floor today, greater than?50% of which was spent counseling/coordinating care. Reason for contiued inpatient stay Substantial Risk for: inability to function, rapid decompensation and med/psych decompensation
[2021-10-09] MEDS: cloZAPine 100 MG TABLET 300 MG PO (21:04)
[2021-10-09] MEDS: Divalproex Sodium ER 500 MG TAB.ER.24H 1000 MG PO (21:05)
[2021-10-09] MEDS: Docusate Sodium 100 MG CAPSULE PO (21:06)
[2021-10-09] MEDS: Benztropine Mesylate 0.5 MG TABLET PO (21:06)
[2021-10-09 22:03] LABS: Glucose, Whole Blood 165 mg/dL (60-115)
[2021-10-10 07:20] VITALS: BP 129/63; PULSE 81; RESP 16; TEMP 36.2; O2SAT 98
[2021-10-10] MEDS: Perphenazine 8 MG TABLET PO ×2 (09:19→22:06)
[2021-10-10] MEDS: lisinopriL 40 MG TABLET PO (09:19)
[2021-10-10] MEDS: Atorvastatin Calcium 20 MG TABLET PO (09:19)
[2021-10-10] MEDS: metFORMIN HCl 1,000 MG TABLET 1000 MG PO ×2 (09:19→17:15)
[2021-10-10] MEDS: Docusate Sodium 100 MG CAPSULE PO ×2 (09:19→22:07)
[2021-10-10] MEDS: Metoprolol Tartrate 100 MG TABLET PO ×2 (09:19→22:07)
[2021-10-10] MEDS: Aspirin Enteric Coated 81 MG TABLET.DR PO (09:19)
[2021-10-10 09:25] LABS: Glucose, Whole Blood 227 mg/dL (60-115)
[2021-10-10 12:17] LABS: Glucose, Whole Blood 209 mg/dL (60-115)
--- NOTE | 2021-10-10 17:09 | HO.PSYCHPN ---
Subjective Subjective Date of Service: 10/10/21 Reason For Visit: schizophrenia Subjective Notes: Conditional Voluntary Interim History: the nursing staff reported the patient has been compliant with treatment, she refused insulin the night but her fasting blood sugars are stable. She was seen self dialogue in but that is her baseline. On interview the patient reports that she is doing fine she is waiting for placement. Mental Status Exam Mental Status Exam Patient Appearance: Appropriate Patient Orientation: Person and Situation Level of Consciousness: Awake Patient Behavior: Cooperative Mood Description: Constricted Affect Description: Constricted Patient Cognition Impaired: Yes Ability to Follow Directions: Good Speech Pattern: Clear Hallucinations: None Delusions: Not Present Thought Process: Distracted Thought Content: positive for [place] and positive for Poverty of Content Judgement: Fair Diagnostics Vital Signs (24Hr): Vital Signs - 24 hr 10/09/21 18:00 10/10/21 07:20 Temperature 97.5 F 97.1 F Pulse Rate 80 81 Respiratory Rate 16 16 Blood Pressure 172/109 H 129/63 Pulse Oximetry 98 98 BMI result Body Mass Index 35.0 Labs Results: 10/06/21 07:03 10/09/21 08:05 Labs: Laboratory Results - last 48 hr 10/08/21 10/09/21 10/09/21 20:38 07:49 08:05 Creatinine 0.85 Estim Creat Clear Calc 95.7 Estimated GFR > 60 POC Glucose 111 245 H 10/09/21 10/09/21 10/09/21 12:06 17:10 21:02 Creatinine Estim Creat Clear Calc Estimated GFR POC Glucose 162 H 166 H 165 H 10/10/21 10/10/21 09:18 12:12 Creatinine Estim Creat Clear Calc Estimated GFR POC Glucose 227 H 209 H Medications Medications Current Medications Acetaminophen (Acetaminophen 325 Mg Tablet) 650 mg PO Q6H PRN PRN Reason: Headache/Pain Mild Scale (1-3) Al Hydroxide/Mg Hydroxide (Magnesium Hydrox/Alum Hydrox 30 Ml Oral.Susp) 30 ml PO Q6H PRN PRN Reason: Heartburn/Nausea Aspirin (Aspirin Enteric Coated 81 Mg Tablet.) 81 mg PO DAILY [facility] Last Admin: 10/10/21 09:19 Dose: 81 mg Documented by: Atorvastatin Calcium (Atorvastatin Calcium 20 Mg Tablet) 20 mg PO DAILY [facility] Last Admin: 10/10/21 09:19 Dose: 20 mg Documented by: Benztropine Mesylate (Benztropine Mesylate 0.5 Mg Tablet) 0.5 mg PO BEDTIME [facility] Last Admin: 10/09/21 21:06 Dose: 0.5 mg Documented by: Clozapine (Clozapine 100 Mg Tablet) 300 mg PO BEDTIME [facility] Last Admin: 10/09/21 21:04 Dose: 300 mg Documented by: Divalproex Sodium (Divalproex Sodium Er 500 Mg Tab.Er.24h) 1,000 mg PO BEDTIME [facility] Last Admin: 10/09/21 21:05 Dose: 1,000 mg Documented by: Docusate Sodium (Docusate Sodium 100 Mg Capsule) 100 mg PO BID [facility] Last Admin: 10/10/21 09:19 Dose: 100 mg Documented by: Hydroxyzine HCl (Hydroxyzine Hcl 25 Mg Tablet) 25 mg PO Q6H PRN PRN Reason: Anxiety Insulin Glargine (Insulin Glargine,Hum.Rec.Anlog 100 Unit/Ml 10 Ml Vial) 25 unit SUBCUT BEDTIME [facility] Last Admin: 10/09/21 21:07 Dose: Not Given Documented by: Insulin Human Lispro (Insulin Lispro 100 Unit/Ml 3 Ml Vial) 0 unit SUBCUT QIDACHS [facility]; Protocol Last Admin: 10/10/21 15:36 Dose: Not Given Documented by: Lisinopril (Lisinopril 40 Mg Tablet) 40 mg PO DAILY [facility]; Protocol Last Admin: 10/10/21 09:19 Dose: 40 mg Documented by: Loperamide HCl (Loperamide Hcl 2 Mg Capsule) 2 mg PO Q4H PRN PRN Reason: Diarrhea Last Admin: 09/18/21 07:42 Dose: 2 mg Documented by: Magnesium Hydroxide (Milk Of Magnesia 30 Ml Oral.Susp) 30 ml PO DAILY PRN PRN Reason: Constipation Last Admin: 10/09/21 10:11 Dose: 30 ml Documented by: Metformin HCl (Metformin Hcl 1,000 Mg Tablet) 1,000 mg PO BIDWM [facility] Last Admin: 10/10/21 09:19 Dose: 1,000 mg Documented by: Metoprolol Tartrate (Metoprolol Tartrate 100 Mg Tablet) 100 mg PO BID [facility]; Protocol Last Admin: 10/10/21 09:19 Dose: 100 mg Documented by: Oxybutynin Chloride (Oxybutynin Chloride Er 5 Mg Tab.Er.24) 5 mg PO DAILY [facility] Last Admin: 10/10/21 09:19 Dose: 5 mg Documented by: Perphenazine (Perphenazine 8 Mg Tablet) 8 mg PO BID [facility] Last Admin: 10/10/21 09:19 Dose: 8 mg Documented by: Polyethylene Glycol (Polyethylene Glycol 3350 17 Gm Powd.Pack) 17 gm PO BEDTIME [facility] Last Admin: 10/10/21 01:08 Dose: Not Given Documented by: Trazodone HCl (Trazodone Hcl 50 Mg Tablet) 50 mg PO BEDTIME PRN PRN Reason: Insomnia Allergies Allergies Allergy/AdvReac Type Severity Reaction Status Date / Time Sulfa (Sulfonamide Allergy Unknown UNKNOWN Verified 09/15/21 23:47 Antibiotics) [SULFA (SULFONAMIDE ANTIBIOTICS)] Assessment & Plan Assessment & Plan (1) Schizophrenia: Status: Acute Code(s): F20.9 - Schizophrenia, unspecified Plan The patient is a 56-year-old female with a long history of schizophrenia, admitted for exacerbation of psychosis. She was restarted on her medications and for perphenazine was slightly increased and Depakote adjusted accordingly. Plan 1. Continue same medications. 2. Wait for placement I spent __20____ minutes with the patient and/or on the patient floor today, greater than?50% of which was spent counseling/coordinating care. Reason for contiued inpatient stay Substantial Risk for: inability to function, rapid decompensation and med/psych decompensation
[2021-10-10 17:20] LABS: Glucose, Whole Blood 84 mg/dL (60-115)
[2021-10-10 21:56] LABS: Glucose, Whole Blood 117 mg/dL (60-115)
[2021-10-10 21:57] VITALS: BP 159/75; PULSE 84; RESP 16; TEMP 36.6; O2SAT 97
[2021-10-10] MEDS: polyethylene glycoL 3350 17 GM POWD.PACK PO (22:06)
[2021-10-10] MEDS: Divalproex Sodium ER 500 MG TAB.ER.24H 1000 MG PO (22:06)
[2021-10-10] MEDS: cloZAPine 100 MG TABLET 300 MG PO (22:06)
[2021-10-10] MEDS: Insulin Glargine,Hum.rec.anlog 100 UNIT/ML 10 ML VIAL 25 UNIT SUBCUT (22:07)
[2021-10-10] MEDS: Benztropine Mesylate 0.5 MG TABLET PO (22:07)
[2021-10-11 01:57] LABS: Glucose, Whole Blood 116 mg/dL (60-115)
[2021-10-11 07:55] LABS: Glucose, Whole Blood 87 mg/dL (60-115)
[2021-10-11 08:00] VITALS: BP 184/98; PULSE 76; RESP 18; TEMP 36.7; O2SAT 97
[2021-10-11] MEDS: Docusate Sodium 100 MG CAPSULE PO ×2 (08:50→20:35)
[2021-10-11] MEDS: Perphenazine 8 MG TABLET PO ×2 (08:50→20:35)
[2021-10-11] MEDS: Metoprolol Tartrate 100 MG TABLET PO ×2 (08:50→20:35)
[2021-10-11] MEDS: Aspirin Enteric Coated 81 MG TABLET.DR PO (08:51)
[2021-10-11] MEDS: metFORMIN HCl 1,000 MG TABLET 1000 MG PO ×2 (08:51→16:46)
[2021-10-11] MEDS: Atorvastatin Calcium 20 MG TABLET PO (08:51)
[2021-10-11] MEDS: lisinopriL 40 MG TABLET PO (08:51)
[2021-10-11 11:48] LABS: Glucose, Whole Blood 164 mg/dL (60-115)
--- NOTE | 2021-10-11 15:21 | HO.PSYCHPN ---
Subjective Subjective Date of Service: 10/11/21 Reason For Visit: schizophrenia Subjective Notes: Conditional Voluntary Interim History: The nursing staff reports the patient has been compliant with treatment, she has been seen self dialogue in but that is her baseline. On interview the patient is aware that she is going to be discharged early next week, she is pleasant and cooperative. Mental Status Exam Mental Status Exam Patient Appearance: Appropriate Patient Orientation: Person and Situation Level of Consciousness: Awake Patient Behavior: Cooperative Mood Description: Constricted Affect Description: Withdrawn Patient Cognition Impaired: No Ability to Follow Directions: Good Speech Pattern: Clear Hallucinations: Auditory Delusions: Paranoid Ideation Thought Process: Linear Thought Content: positive for [place] Judgement: Fair Diagnostics Vital Signs (24Hr): Vital Signs - 24 hr 10/10/21 21:57 10/11/21 08:00 Temperature 97.9 F 98.0 F Pulse Rate 84 76 Respiratory Rate 16 18 Blood Pressure 159/75 H 184/98 H Pulse Oximetry 97 97 BMI result Body Mass Index 35.0 Labs Results: 10/06/21 07:03 10/09/21 08:05 Labs: Laboratory Results - last 48 hr 10/09/21 10/09/21 10/10/21 17:10 21:02 09:18 POC Glucose 166 H 165 H 227 H 10/10/21 10/10/21 10/10/21 12:12 17:15 21:49 POC Glucose 209 H 84 117 H 10/11/21 10/11/21 10/11/21 01:50 07:50 11:44 POC Glucose 116 H 87 164 H Medications Medications Current Medications Acetaminophen (Acetaminophen 325 Mg Tablet) 650 mg PO Q6H PRN PRN Reason: Headache/Pain Mild Scale (1-3) Al Hydroxide/Mg Hydroxide (Magnesium Hydrox/Alum Hydrox 30 Ml Oral.Susp) 30 ml PO Q6H PRN PRN Reason: Heartburn/Nausea Aspirin (Aspirin Enteric Coated 81 Mg Tablet.) 81 mg PO DAILY [facility] Last Admin: 10/11/21 08:51 Dose: 81 mg Documented by: Atorvastatin Calcium (Atorvastatin Calcium 20 Mg Tablet) 20 mg PO DAILY [facility] Last Admin: 10/11/21 08:51 Dose: 20 mg Documented by: Benztropine Mesylate (Benztropine Mesylate 0.5 Mg Tablet) 0.5 mg PO BEDTIME [facility] Last Admin: 10/10/21 22:07 Dose: 0.5 mg Documented by: Clozapine (Clozapine 100 Mg Tablet) 300 mg PO BEDTIME [facility] Last Admin: 10/10/21 22:06 Dose: 300 mg Documented by: Divalproex Sodium (Divalproex Sodium Er 500 Mg Tab.Er.24h) 1,000 mg PO BEDTIME [facility] Last Admin: 10/10/21 22:06 Dose: 1,000 mg Documented by: Docusate Sodium (Docusate Sodium 100 Mg Capsule) 100 mg PO BID [facility] Last Admin: 10/11/21 08:50 Dose: 100 mg Documented by: Hydroxyzine HCl (Hydroxyzine Hcl 25 Mg Tablet) 25 mg PO Q6H PRN PRN Reason: Anxiety Insulin Glargine (Insulin Glargine,Hum.Rec.Anlog 100 Unit/Ml 10 Ml Vial) 25 unit SUBCUT BEDTIME [facility] Last Admin: 10/10/21 22:07 Dose: 25 unit Documented by: Insulin Human Lispro (Insulin Lispro 100 Unit/Ml 3 Ml Vial) 0 unit SUBCUT QIDACHS [facility]; Protocol Last Admin: 10/11/21 12:20 Dose: Not Given Documented by: Lisinopril (Lisinopril 40 Mg Tablet) 40 mg PO DAILY [facility]; Protocol Last Admin: 10/11/21 08:51 Dose: 40 mg Documented by: Loperamide HCl (Loperamide Hcl 2 Mg Capsule) 2 mg PO Q4H PRN PRN Reason: Diarrhea Last Admin: 09/18/21 07:42 Dose: 2 mg Documented by: Magnesium Hydroxide (Milk Of Magnesia 30 Ml Oral.Susp) 30 ml PO DAILY PRN PRN Reason: Constipation Last Admin: 10/09/21 10:11 Dose: 30 ml Documented by: Metformin HCl (Metformin Hcl 1,000 Mg Tablet) 1,000 mg PO BIDWM [facility] Last Admin: 10/11/21 08:51 Dose: 1,000 mg Documented by: Metoprolol Tartrate (Metoprolol Tartrate 100 Mg Tablet) 100 mg PO BID [facility]; Protocol Last Admin: 10/11/21 08:50 Dose: 100 mg Documented by: Oxybutynin Chloride (Oxybutynin Chloride Er 5 Mg Tab.Er.24) 5 mg PO DAILY [facility] Last Admin: 10/11/21 08:51 Dose: 5 mg Documented by: Perphenazine (Perphenazine 8 Mg Tablet) 8 mg PO BID [facility] Last Admin: 10/11/21 08:50 Dose: 8 mg Documented by: Polyethylene Glycol (Polyethylene Glycol 3350 17 Gm Powd.Pack) 17 gm PO BEDTIME [facility] Last Admin: 10/10/21 22:06 Dose: 17 gm Documented by: Trazodone HCl (Trazodone Hcl 50 Mg Tablet) 50 mg PO BEDTIME PRN PRN Reason: Insomnia Allergies Allergies Allergy/AdvReac Type Severity Reaction Status Date / Time Sulfa (Sulfonamide Allergy Unknown UNKNOWN Verified 09/15/21 23:47 Antibiotics) [SULFA (SULFONAMIDE ANTIBIOTICS)] Assessment & Plan Assessment & Plan (1) Schizophrenia: Status: Acute Code(s): F20.9 - Schizophrenia, unspecified Plan The patient is a 56-year-old female with a long history of schizophrenia, admitted for exacerbation of psychosis. She was restarted on her medications and for perphenazine was slightly increased and Depakote adjusted accordingly. Plan 1. Continue same medications. 2. Wait for placement I spent __20____ minutes with the patient and/or on the patient floor today, greater than?50% of which was spent counseling/coordinating care. Reason for contiued inpatient stay Substantial Risk for: inability to function, rapid decompensation and med/psych decompensation
[2021-10-11 16:40] LABS: Glucose, Whole Blood 159 mg/dL (60-115)
[2021-10-11 20:30] VITALS: BP 167/91; PULSE 77; TEMP 36.2; O2SAT 98
[2021-10-11] MEDS: cloZAPine 100 MG TABLET 300 MG PO (20:35)
[2021-10-11] MEDS: Divalproex Sodium ER 500 MG TAB.ER.24H 1000 MG PO (20:35)
[2021-10-11] MEDS: Benztropine Mesylate 0.5 MG TABLET PO (20:35)
[2021-10-11] MEDS: polyethylene glycoL 3350 17 GM POWD.PACK PO (20:36)
[2021-10-11 20:50] LABS: Glucose, Whole Blood 135 mg/dL (60-115)
[2021-10-12 06:00] VITALS: BP 192/86; PULSE 73; RESP 16; TEMP 36.8; O2SAT 99
[2021-10-12 08:21] LABS: Glucose, Whole Blood 128 mg/dL (60-115)
[2021-10-12] MEDS: Metoprolol Tartrate 100 MG TABLET PO ×2 (08:48→23:00)
[2021-10-12] MEDS: metFORMIN HCl 1,000 MG TABLET 1000 MG PO ×2 (08:49→17:52)
[2021-10-12] MEDS: Aspirin Enteric Coated 81 MG TABLET.DR PO (08:49)
[2021-10-12] MEDS: lisinopriL 40 MG TABLET PO (08:49)
[2021-10-12] MEDS: Perphenazine 8 MG TABLET PO ×2 (08:49→23:01)
[2021-10-12] MEDS: Docusate Sodium 100 MG CAPSULE PO ×2 (08:49→23:01)
[2021-10-12] MEDS: Atorvastatin Calcium 20 MG TABLET PO (08:49)
[2021-10-12 11:32] LABS: Glucose, Whole Blood 231 mg/dL (60-115)
--- NOTE | 2021-10-12 16:20 | P.PNPSI_ITS ---
Subjective Subjective Date of Service: 10/12/21 Reason For Visit: schizophrenia Subjective Notes: Conditional Voluntary Interim History: The nursing staff reported that the patient has been compliant with treatment, at baseline, waiting for placement. On interview, she denied new symptoms Mental Status Exam Mental Status Exam Patient Appearance: Well Grooomed Patient Orientation: Person, Place and Situation Level of Consciousness: Awake and Appropriate Patient Behavior: Guarded and Cooperative Mood Description: Withdrawn Affect Description: Constricted Ability to Follow Directions: Good Speech Pattern: Clear Memory Description: Intact Hallucinations: None and Auditory Delusions: Paranoid Ideation Thought Process: Distracted Thought Content: positive for [place] Judgement: Fair Diagnostics Vital Signs (24Hr): Vital Signs - 24 hr 10/11/21 20:30 Temperature 97.2 F Pulse Rate 77 Blood Pressure 167/91 H Pulse Oximetry 98 BMI result Body Mass Index 35.0 Labs Results: 10/06/21 07:03 10/09/21 08:05 Labs: Laboratory Results - last 48 hr 10/10/21 10/10/21 10/11/21 17:15 21:49 01:50 POC Glucose 84 117 H 116 H 10/11/21 10/11/21 10/11/21 07:50 11:44 16:36 POC Glucose 87 164 H 159 H 10/11/21 10/12/21 10/12/21 20:34 08:17 11:28 POC Glucose 135 H 128 H 231 H Medications Medications Current Medications Acetaminophen (Acetaminophen 325 Mg Tablet) 650 mg PO Q6H PRN PRN Reason: Headache/Pain Mild Scale (1-3) Al Hydroxide/Mg Hydroxide (Magnesium Hydrox/Alum Hydrox 30 Ml Oral.Susp) 30 ml PO Q6H PRN PRN Reason: Heartburn/Nausea Aspirin (Aspirin Enteric Coated 81 Mg Tablet.Dr) 81 mg PO DAILY [facility] Last Admin: 10/12/21 08:49 Dose: 81 mg Documented by: Atorvastatin Calcium (Atorvastatin Calcium 20 Mg Tablet) 20 mg PO DAILY [facility] Last Admin: 10/12/21 08:49 Dose: 20 mg Documented by: Benztropine Mesylate (Benztropine Mesylate 0.5 Mg Tablet) 0.5 mg PO BEDTIME [facility] Last Admin: 10/11/21 20:35 Dose: 0.5 mg Documented by: Clozapine (Clozapine 100 Mg Tablet) 300 mg PO BEDTIME [facility] Last Admin: 10/11/21 20:35 Dose: 300 mg Documented by: Divalproex Sodium (Divalproex Sodium Er 500 Mg Tab.Er.24h) 1,000 mg PO BEDTIME [facility] Last Admin: 10/11/21 20:35 Dose: 1,000 mg Documented by: Docusate Sodium (Docusate Sodium 100 Mg Capsule) 100 mg PO BID [facility] Last Admin: 10/12/21 08:49 Dose: 100 mg Documented by: Hydroxyzine HCl (Hydroxyzine Hcl 25 Mg Tablet) 25 mg PO Q6H PRN PRN Reason: Anxiety Insulin Glargine (Insulin Glargine,Hum.Rec.Anlog 100 Unit/Ml 10 Ml Vial) 25 unit SUBCUT BEDTIME [facility] Last Admin: 10/11/21 20:36 Dose: Not Given Documented by: Insulin Human Lispro (Insulin Lispro 100 Unit/Ml 3 Ml Vial) 0 unit SUBCUT QIDACHS [facility]; Protocol Last Admin: 10/12/21 11:36 Dose: Not Given Documented by: Lisinopril (Lisinopril 40 Mg Tablet) 40 mg PO DAILY [facility]; Protocol Last Admin: 10/12/21 08:49 Dose: 40 mg Documented by: Loperamide HCl (Loperamide Hcl 2 Mg Capsule) 2 mg PO Q4H PRN PRN Reason: Diarrhea Last Admin: 09/18/21 07:42 Dose: 2 mg Documented by: Magnesium Hydroxide (Milk Of Magnesia 30 Ml Oral.Susp) 30 ml PO DAILY PRN PRN Reason: Constipation Last Admin: 10/09/21 10:11 Dose: 30 ml Documented by: Metformin HCl (Metformin Hcl 1,000 Mg Tablet) 1,000 mg PO BIDWM [facility] Last Admin: 10/12/21 08:49 Dose: 1,000 mg Documented by: Metoprolol Tartrate (Metoprolol Tartrate 100 Mg Tablet) 100 mg PO BID [facility]; Protocol Last Admin: 10/12/21 08:48 Dose: 100 mg Documented by: Oxybutynin Chloride (Oxybutynin Chloride Er 5 Mg Tab.Er.24) 5 mg PO DAILY [facility] Last Admin: 10/12/21 08:49 Dose: 5 mg Documented by: Perphenazine (Perphenazine 8 Mg Tablet) 8 mg PO BID [facility] Last Admin: 10/12/21 08:49 Dose: 8 mg Documented by: Polyethylene Glycol (Polyethylene Glycol 3350 17 Gm Powd.Pack) 17 gm PO BEDTIME [facility] Last Admin: 10/11/21 20:36 Dose: 17 gm Documented by: Trazodone HCl (Trazodone Hcl 50 Mg Tablet) 50 mg PO BEDTIME PRN PRN Reason: Insomnia Allergies Allergies Allergy/AdvReac Type Severity Reaction Status Date / Time Sulfa (Sulfonamide Allergy Unknown UNKNOWN Verified 09/15/21 23:47 Antibiotics) [SULFA (SULFONAMIDE ANTIBIOTICS)] Assessment & Plan Assessment & Plan (1) Schizophrenia: Status: Acute Code(s): F20.9 - Schizophrenia, unspecified Plan The patient is a 56-year-old female with a long history of schizophrenia, admitted for exacerbation of psychosis. She was restarted on her medications and for perphenazine was slightly increased and Depakote adjusted accordingly. Plan 1. Continue same medications. 2. Wait for placement I spent __20____ minutes with the patient and/or on the patient floor today, greater than?50% of which was spent counseling/coordinating care. Reason for contiued inpatient stay Substantial Risk for: inability to function, rapid decompensation and med/psych decompensation
[2021-10-12 16:50] LABS: Glucose, Whole Blood 143 mg/dL (60-115)
[2021-10-12 22:32] LABS: Glucose, Whole Blood 126 mg/dL (60-115)
[2021-10-12 22:39] VITALS: BP 135/95; PULSE 79; RESP 16; TEMP 36.6; O2SAT 98
[2021-10-12 22:39] LABS: COVID-19 Test Negative (Negative)
[2021-10-12 22:55] LABS: Influenza A PCR NEGATIVE (Negative); Influenza B PCR NEGATIVE (Negative); Resp Syncy Virus RNA Qual PCR NEGATIVE (Negative); SARS COV2 PCR INHOUSE NEGATIVE (Negative)
[2021-10-12] MEDS: Divalproex Sodium ER 500 MG TAB.ER.24H 1000 MG PO (23:00)
[2021-10-12] MEDS: cloZAPine 100 MG TABLET 300 MG PO (23:00)
[2021-10-12] MEDS: Benztropine Mesylate 0.5 MG TABLET PO (23:01)
[2021-10-12] MEDS: polyethylene glycoL 3350 17 GM POWD.PACK PO (23:06)
[2021-10-13 08:00] VITALS: BP 197/94; PULSE 74; RESP 16; TEMP 36.2; O2SAT 93
[2021-10-13 08:02] LABS: Glucose, Whole Blood 95 mg/dL (60-115)
[2021-10-13 08:20] LABS: Neut%MD 43.5 %; WBCANC 9.3 X10*3/uL
[2021-10-13] MEDS: Docusate Sodium 100 MG CAPSULE PO ×2 (08:21→20:20)
[2021-10-13] MEDS: Atorvastatin Calcium 20 MG TABLET PO (08:21)
[2021-10-13] MEDS: metFORMIN HCl 1,000 MG TABLET 1000 MG PO ×2 (08:21→16:48)
[2021-10-13] MEDS: Aspirin Enteric Coated 81 MG TABLET.DR PO (08:21)
[2021-10-13] MEDS: Metoprolol Tartrate 100 MG TABLET PO ×2 (08:21→20:20)
[2021-10-13] MEDS: Perphenazine 8 MG TABLET PO ×2 (08:21→20:22)
[2021-10-13] MEDS: lisinopriL 40 MG TABLET PO (08:21)
[2021-10-13 12:47] LABS: Glucose, Whole Blood 143 mg/dL (60-115)
--- NOTE | 2021-10-13 15:47 | P.PNPSI_ITS ---
Subjective Subjective Date of Service: 10/13/21 Reason For Visit: schizophrenia Subjective Notes: Conditional Voluntary Interim History: The nursing staff reports the patient has been fully compliant with treatment, no new symptoms. On interview the patient denies new symptoms she is waiting for placement. Mental Status Exam Mental Status Exam Patient Appearance: Well Grooomed Patient Orientation: Person and Situation Level of Consciousness: Awake Patient Behavior: Guarded and Suspicious Mood Description: Constricted Affect Description: Constricted Patient Cognition Impaired: No Speech Pattern: Appropriate Hallucinations: Auditory Delusions: Paranoid Ideation Thought Process: Linear Thought Content: positive for [place] and positive for [place] Oriented Judgement: Fair Diagnostics Vital Signs (24Hr): Vital Signs - 24 hr 10/12/21 22:39 10/13/21 08:00 Temperature 97.8 F 97.2 F Pulse Rate 79 74 Respiratory Rate 16 16 Blood Pressure 135/95 H 197/94 H Pulse Oximetry 98 93 BMI result Body Mass Index 35.0 Labs Results: 10/06/21 07:03 10/09/21 08:05 Labs: Laboratory Results - last 48 hr 10/11/21 10/11/21 10/12/21 16:36 20:34 08:17 Absolute Neuts (auto) POC Glucose 159 H 135 H 128 H COVID-19 ([facility]) COVID-19 Clin Com Influenza Type A (PCR) Influenza Type B (PCR) RSV RNA Qual (PCR) SARS-CoV-2 RNA (RT-PCR) 10/12/21 10/12/21 10/12/21 11:28 16:46 22:03 Absolute Neuts (auto) POC Glucose 231 H 143 H COVID-19 ([facility]) COVID-19 Clin Com Influenza Type A (PCR) NEGATIVE Influenza Type B (PCR) NEGATIVE RSV RNA Qual (PCR) NEGATIVE SARS-CoV-2 RNA (RT-PCR) NEGATIVE 10/12/21 10/12/21 10/13/21 22:03 22:27 07:57 Absolute Neuts (auto) POC Glucose 126 H 95 COVID-19 ([facility]) Negative COVID-19 Clin Com See Note Influenza Type A (PCR) Influenza Type B (PCR) RSV RNA Qual (PCR) SARS-CoV-2 RNA (RT-PCR) 10/13/21 10/13/21 08:09 12:42 Absolute Neuts (auto) 4.0 POC Glucose 143 H COVID-19 ([facility]) COVID-19 Clin Com Influenza Type A (PCR) Influenza Type B (PCR) RSV RNA Qual (PCR) SARS-CoV-2 RNA (RT-PCR) Medications Medications Current Medications Acetaminophen (Acetaminophen 325 Mg Tablet) 650 mg PO Q6H PRN PRN Reason: Headache/Pain Mild Scale (1-3) Al Hydroxide/Mg Hydroxide (Magnesium Hydrox/Alum Hydrox 30 Ml Oral.Susp) 30 ml PO Q6H PRN PRN Reason: Heartburn/Nausea Aspirin (Aspirin Enteric Coated 81 Mg Tablet.Dr) 81 mg PO DAILY [facility] Last Admin: 10/13/21 08:21 Dose: 81 mg Documented by: Atorvastatin Calcium (Atorvastatin Calcium 20 Mg Tablet) 20 mg PO DAILY [facility] Last Admin: 10/13/21 08:21 Dose: 20 mg Documented by: Benztropine Mesylate (Benztropine Mesylate 0.5 Mg Tablet) 0.5 mg PO BEDTIME [facility] Last Admin: 10/12/21 23:01 Dose: 0.5 mg Documented by: Clozapine (Clozapine 100 Mg Tablet) 300 mg PO BEDTIME [facility] Last Admin: 10/12/21 23:00 Dose: 300 mg Documented by: Divalproex Sodium (Divalproex Sodium Er 500 Mg Tab.Er.24h) 1,000 mg PO BEDTIME [facility] Last Admin: 10/12/21 23:00 Dose: 1,000 mg Documented by: Docusate Sodium (Docusate Sodium 100 Mg Capsule) 100 mg PO BID [facility] Last Admin: 10/13/21 08:21 Dose: 100 mg Documented by: Hydroxyzine HCl (Hydroxyzine Hcl 25 Mg Tablet) 25 mg PO Q6H PRN PRN Reason: Anxiety Insulin Glargine (Insulin Glargine,Hum.Rec.Anlog 100 Unit/Ml 10 Ml Vial) 25 unit SUBCUT BEDTIME [facility] Last Admin: 10/12/21 23:01 Dose: Not Given Documented by: Insulin Human Lispro (Insulin Lispro 100 Unit/Ml 3 Ml Vial) 0 unit SUBCUT QIDACHS [facility]; Protocol Last Admin: 10/13/21 12:48 Dose: Not Given Documented by: Lisinopril (Lisinopril 40 Mg Tablet) 40 mg PO DAILY [facility]; Protocol Last Admin: 10/13/21 08:21 Dose: 40 mg Documented by: Loperamide HCl (Loperamide Hcl 2 Mg Capsule) 2 mg PO Q4H PRN PRN Reason: Diarrhea Last Admin: 09/18/21 07:42 Dose: 2 mg Documented by: Magnesium Hydroxide (Milk Of Magnesia 30 Ml Oral.Susp) 30 ml PO DAILY PRN PRN Reason: Constipation Last Admin: 10/09/21 10:11 Dose: 30 ml Documented by: Metformin HCl (Metformin Hcl 1,000 Mg Tablet) 1,000 mg PO BIDWM [facility] Last Admin: 10/13/21 08:21 Dose: 1,000 mg Documented by: Metoprolol Tartrate (Metoprolol Tartrate 100 Mg Tablet) 100 mg PO BID [facility]; Protocol Last Admin: 10/13/21 08:21 Dose: 100 mg Documented by: Oxybutynin Chloride (Oxybutynin Chloride Er 5 Mg Tab.Er.24) 5 mg PO DAILY [facility] Last Admin: 10/13/21 08:21 Dose: 5 mg Documented by: Perphenazine (Perphenazine 8 Mg Tablet) 8 mg PO BID [facility] Last Admin: 10/13/21 08:21 Dose: 8 mg Documented by: Polyethylene Glycol (Polyethylene Glycol 3350 17 Gm Powd.Pack) 17 gm PO BEDTIME [facility] Last Admin: 10/12/21 23:06 Dose: 17 gm Documented by: Trazodone HCl (Trazodone Hcl 50 Mg Tablet) 50 mg PO BEDTIME PRN PRN Reason: Insomnia Allergies Allergies Allergy/AdvReac Type Severity Reaction Status Date / Time Sulfa (Sulfonamide Allergy Unknown UNKNOWN Verified 09/15/21 23:47 Antibiotics) [SULFA (SULFONAMIDE ANTIBIOTICS)] Assessment & Plan Assessment & Plan (1) Schizophrenia: Status: Acute Code(s): F20.9 - Schizophrenia, unspecified Plan The patient is a 56-year-old female with a long history of schizophrenia, admitted for exacerbation of psychosis. She was restarted on her medications and for perphenazine was slightly increased and Depakote adjusted accordingly. Plan 1. Continue same medications. 2. Wait for placement I spent ___20___ minutes with the patient and/or on the patient floor today, greater than?50% of which was spent counseling/coordinating care. Reason for contiued inpatient stay Substantial Risk for: inability to function, rapid decompensation and med/psych decompensation
[2021-10-13 16:32] LABS: Glucose, Whole Blood 129 mg/dL (60-115)
[2021-10-13 18:00] VITALS: BP 156/70; PULSE 82; RESP 16; TEMP 36.2; O2SAT 95
[2021-10-13] MEDS: Divalproex Sodium ER 500 MG TAB.ER.24H 1000 MG PO (20:21)
[2021-10-13] MEDS: cloZAPine 100 MG TABLET 300 MG PO (20:21)
[2021-10-13] MEDS: Benztropine Mesylate 0.5 MG TABLET PO (20:22)
[2021-10-13 20:31] LABS: Glucose, Whole Blood 99 mg/dL (60-115)
--- NOTE | 2021-10-14 07:55 | P.PNPSI_ITS ---
Subjective Subjective Date of Service: 10/14/21 Reason For Visit: schizophrenia Subjective Notes: Conditional Voluntary Interim History: The nursing staff reported the patient has been isolative, incontinent of urine. Her fasting blood sugar was 99 today. On interview the patient denies new symptoms, she is waiting for placement Mental Status Exam Mental Status Exam Patient Appearance: Well Grooomed Patient Orientation: Person, Place and Situation Level of Consciousness: Awake Patient Behavior: Guarded and Cooperative Mood Description: Withdrawn Affect Description: Constricted Ability to Follow Directions: Good Speech Pattern: Clear Hallucinations: Auditory Delusions: Paranoid Ideation Thought Process: Linear Thought Content: positive for [place], positive for [place] and positive for [place] of Content Judgement: Fair Diagnostics Vital Signs (24Hr): Vital Signs - 24 hr 10/13/21 08:00 10/13/21 18:00 Temperature 97.2 F 97.1 F Pulse Rate 74 82 Respiratory Rate 16 16 Blood Pressure 197/94 H 156/70 H Pulse Oximetry 93 95 BMI result Body Mass Index 35.0 Labs Results: 10/06/21 07:03 10/09/21 08:05 Labs: Laboratory Results - last 48 hr 10/12/21 10/12/21 10/12/21 08:17 11:28 16:46 Absolute Neuts (auto) POC Glucose 128 H 231 H 143 H COVID-19 ([facility]) COVID-19 Clin Com Influenza Type A (PCR) Influenza Type B (PCR) RSV RNA Qual (PCR) SARS-CoV-2 RNA (RT-PCR) 10/12/21 10/12/21 10/12/21 22:03 22:03 22:27 Absolute Neuts (auto) POC Glucose 126 H COVID-19 ([facility]) Negative COVID-19 Clin Com See Note Influenza Type A (PCR) NEGATIVE Influenza Type B (PCR) NEGATIVE RSV RNA Qual (PCR) NEGATIVE SARS-CoV-2 RNA (RT-PCR) NEGATIVE 10/13/21 10/13/21 10/13/21 07:57 08:09 12:42 Absolute Neuts (auto) 4.0 POC Glucose 95 143 H COVID-19 ([facility]) COVID-19 Clin Com Influenza Type A (PCR) Influenza Type B (PCR) RSV RNA Qual (PCR) SARS-CoV-2 RNA (RT-PCR) 10/13/21 10/13/21 16:28 20:18 Absolute Neuts (auto) POC Glucose 129 H 99 COVID-19 ([facility]) COVID-19 Clin Com Influenza Type A (PCR) Influenza Type B (PCR) RSV RNA Qual (PCR) SARS-CoV-2 RNA (RT-PCR) Medications Medications Current Medications Acetaminophen (Acetaminophen 325 Mg Tablet) 650 mg PO Q6H PRN PRN Reason: Headache/Pain Mild Scale (1-3) Al Hydroxide/Mg Hydroxide (Magnesium Hydrox/Alum Hydrox 30 Ml Oral.Susp) 30 ml PO Q6H PRN PRN Reason: Heartburn/Nausea Aspirin (Aspirin Enteric Coated 81 Mg Tablet.Dr) 81 mg PO DAILY [facility] Last Admin: 10/13/21 08:21 Dose: 81 mg Documented by: Atorvastatin Calcium (Atorvastatin Calcium 20 Mg Tablet) 20 mg PO DAILY [facility] Last Admin: 10/13/21 08:21 Dose: 20 mg Documented by: Benztropine Mesylate (Benztropine Mesylate 0.5 Mg Tablet) 0.5 mg PO BEDTIME [facility] Last Admin: 10/13/21 20:22 Dose: 0.5 mg Documented by: Clozapine (Clozapine 100 Mg Tablet) 300 mg PO BEDTIME [facility] Last Admin: 10/13/21 20:21 Dose: 300 mg Documented by: Divalproex Sodium (Divalproex Sodium Er 500 Mg Tab.Er.24h) 1,000 mg PO BEDTIME [facility] Last Admin: 10/13/21 20:21 Dose: 1,000 mg Documented by: Docusate Sodium (Docusate Sodium 100 Mg Capsule) 100 mg PO BID [facility] Last Admin: 10/13/21 20:20 Dose: 100 mg Documented by: Hydroxyzine HCl (Hydroxyzine Hcl 25 Mg Tablet) 25 mg PO Q6H PRN PRN Reason: Anxiety Insulin Glargine (Insulin Glargine,Hum.Rec.Anlog 100 Unit/Ml 10 Ml Vial) 25 unit SUBCUT BEDTIME [facility] Last Admin: 10/13/21 20:23 Dose: Not Given Documented by: Insulin Human Lispro (Insulin Lispro 100 Unit/Ml 3 Ml Vial) 0 unit SUBCUT QIDACHS [facility]; Protocol Last Admin: 10/13/21 20:28 Dose: Not Given Documented by: Lisinopril (Lisinopril 40 Mg Tablet) 40 mg PO DAILY [facility]; Protocol Last Admin: 10/13/21 08:21 Dose: 40 mg Documented by: Loperamide HCl (Loperamide Hcl 2 Mg Capsule) 2 mg PO Q4H PRN PRN Reason: Diarrhea Last Admin: 09/18/21 07:42 Dose: 2 mg Documented by: Magnesium Hydroxide (Milk Of Magnesia 30 Ml Oral.Susp) 30 ml PO DAILY PRN PRN Reason: Constipation Last Admin: 10/09/21 10:11 Dose: 30 ml Documented by: Metformin HCl (Metformin Hcl 1,000 Mg Tablet) 1,000 mg PO BIDWM [facility] Last Admin: 10/13/21 16:48 Dose: 1,000 mg Documented by: Metoprolol Tartrate (Metoprolol Tartrate 100 Mg Tablet) 100 mg PO BID [facility]; Protocol Last Admin: 10/13/21 20:20 Dose: 100 mg Documented by: Oxybutynin Chloride (Oxybutynin Chloride Er 5 Mg Tab.Er.24) 5 mg PO DAILY [facility] Last Admin: 10/13/21 08:21 Dose: 5 mg Documented by: Perphenazine (Perphenazine 8 Mg Tablet) 8 mg PO BID [facility] Last Admin: 10/13/21 20:22 Dose: 8 mg Documented by: Polyethylene Glycol (Polyethylene Glycol 3350 17 Gm Powd.Pack) 17 gm PO BEDTIME [facility] Last Admin: 10/13/21 20:27 Dose: Not Given Documented by: Trazodone HCl (Trazodone Hcl 50 Mg Tablet) 50 mg PO BEDTIME PRN PRN Reason: Insomnia Allergies Allergies Allergy/AdvReac Type Severity Reaction Status Date / Time Sulfa (Sulfonamide Allergy Unknown UNKNOWN Verified 09/15/21 23:47 Antibiotics) [SULFA (SULFONAMIDE ANTIBIOTICS)] Assessment & Plan Assessment & Plan (1) Schizophrenia: Status: Acute Code(s): F20.9 - Schizophrenia, unspecified Plan The patient is a 56-year-old female with a long history of schizophrenia, admitted for exacerbation of psychosis. She was restarted on her medications and for perphenazine was slightly increased and Depakote adjusted accordingly. Plan 1. Continue same medications. 2. Wait for placement I spent ___20___ minutes with the patient and/or on the patient floor today, greater than?50% of which was spent counseling/coordinating care. Reason for contiued inpatient stay Substantial Risk for: inability to function, rapid decompensation and med/psych decompensation
[2021-10-14 08:00] VITALS: BP 183/82; PULSE 98; RESP 18; TEMP 35.8; O2SAT 99
[2021-10-14 08:03] LABS: Glucose, Whole Blood 105 mg/dL (60-115)
[2021-10-14] MEDS: lisinopriL 40 MG TABLET PO (08:41)
[2021-10-14] MEDS: Perphenazine 8 MG TABLET PO ×2 (08:41→21:08)
[2021-10-14] MEDS: metFORMIN HCl 1,000 MG TABLET 1000 MG PO ×2 (08:41→18:23)
[2021-10-14] MEDS: Atorvastatin Calcium 20 MG TABLET PO (08:41)
[2021-10-14] MEDS: Aspirin Enteric Coated 81 MG TABLET.DR PO (08:41)
[2021-10-14] MEDS: Docusate Sodium 100 MG CAPSULE PO ×2 (08:41→20:56)
[2021-10-14] MEDS: Metoprolol Tartrate 100 MG TABLET PO ×2 (08:41→20:57)
[2021-10-14 11:45] LABS: Glucose, Whole Blood 99 mg/dL (60-115)
[2021-10-14 16:41] LABS: Glucose, Whole Blood 141 mg/dL (60-115)
[2021-10-14 19:28] VITALS: BP 173/74; PULSE 89; RESP 18; TEMP 36.8; O2SAT 94
[2021-10-14 20:53] VITALS: BP 163/71; PULSE 75; RESP 16; O2SAT 97
[2021-10-14] MEDS: Divalproex Sodium ER 500 MG TAB.ER.24H 1000 MG PO (20:55)
[2021-10-14] MEDS: Benztropine Mesylate 0.5 MG TABLET PO (20:55)
[2021-10-14] MEDS: cloZAPine 100 MG TABLET 300 MG PO (20:56)
[2021-10-14] MEDS: polyethylene glycoL 3350 17 GM POWD.PACK PO (20:59)
[2021-10-14 22:00] VITALS: BP 173/74; PULSE 89; RESP 18; TEMP 36.8; O2SAT 94
[2021-10-14 22:48] LABS: Glucose, Whole Blood 170 mg/dL (60-115)
[2021-10-15 07:49] LABS: Glucose, Whole Blood 111 mg/dL (60-115)
[2021-10-15 08:00] VITALS: BP 176/85; PULSE 80; RESP 17; TEMP 35.7; O2SAT 97
[2021-10-15] MEDS: lisinopriL 40 MG TABLET PO (08:28)
[2021-10-15] MEDS: Atorvastatin Calcium 20 MG TABLET PO (08:28)
[2021-10-15] MEDS: Metoprolol Tartrate 100 MG TABLET PO ×2 (08:28→20:58)
[2021-10-15] MEDS: Aspirin Enteric Coated 81 MG TABLET.DR PO (08:28)
[2021-10-15] MEDS: Perphenazine 8 MG TABLET PO ×2 (08:28→20:58)
[2021-10-15] MEDS: metFORMIN HCl 1,000 MG TABLET 1000 MG PO ×2 (08:28→17:13)
[2021-10-15] MEDS: Docusate Sodium 100 MG CAPSULE PO ×2 (08:28→20:58)
--- NOTE | 2021-10-15 09:48 | P.PNPSI_ITS ---
Subjective Subjective Date of Service: 10/15/21 Reason For Visit: schizophrenia Subjective Notes: Conditional Voluntary Interim History: The nursing staff reported the patient has been cooperative and compliant with medication. On interview no new symptoms Mental Status Exam Mental Status Exam Patient Appearance: Well Grooomed Patient Orientation: Person and Situation Level of Consciousness: Awake Patient Behavior: Cooperative Mood Description: Withdrawn Affect Description: Constricted Patient Cognition Impaired: No Ability to Follow Directions: Good Speech Pattern: Clear Hallucinations: Auditory Delusions: Paranoid Ideation Thought Process: Distracted Thought Content: positive for Circumstantial Judgement: Fair Diagnostics Vital Signs (24Hr): Vital Signs - 24 hr 10/14/21 19:28 10/14/21 20:53 10/14/21 22:00 Temperature 98.2 F 98.2 F Pulse Rate 89 75 89 Respiratory Rate 18 16 18 Blood Pressure 173/74 H 163/71 H 173/74 H Pulse Oximetry 94 97 94 10/15/21 08:00 Temperature 96.2 F L Pulse Rate 80 Respiratory Rate 17 Blood Pressure 176/85 H Pulse Oximetry 97 BMI result Body Mass Index 35.0 Labs Results: 10/06/21 07:03 10/09/21 08:05 Labs: Laboratory Results - last 48 hr 10/13/21 10/13/21 10/13/21 12:42 16:28 20:18 POC Glucose 143 H 129 H 99 10/14/21 10/14/21 10/14/21 07:57 11:37 16:34 POC Glucose 105 99 141 H 10/14/21 10/15/21 20:50 07:41 POC Glucose 170 H 111 Medications Medications Current Medications Acetaminophen (Acetaminophen 325 Mg Tablet) 650 mg PO Q6H PRN PRN Reason: Headache/Pain Mild Scale (1-3) Al Hydroxide/Mg Hydroxide (Magnesium Hydrox/Alum Hydrox 30 Ml Oral.Susp) 30 ml PO Q6H PRN PRN Reason: Heartburn/Nausea Aspirin (Aspirin Enteric Coated 81 Mg Tablet.) 81 mg PO DAILY [facility] Last Admin: 10/15/21 08:28 Dose: 81 mg Documented by: Atorvastatin Calcium (Atorvastatin Calcium 20 Mg Tablet) 20 mg PO DAILY [facility] Last Admin: 10/15/21 08:28 Dose: 20 mg Documented by: Benztropine Mesylate (Benztropine Mesylate 0.5 Mg Tablet) 0.5 mg PO BEDTIME [facility] Last Admin: 10/14/21 20:55 Dose: 0.5 mg Documented by: Clozapine (Clozapine 100 Mg Tablet) 300 mg PO BEDTIME [facility] Last Admin: 10/14/21 20:56 Dose: 300 mg Documented by: Divalproex Sodium (Divalproex Sodium Er 500 Mg Tab.Er.24h) 1,000 mg PO BEDTIME [facility] Last Admin: 10/14/21 20:55 Dose: 1,000 mg Documented by: Docusate Sodium (Docusate Sodium 100 Mg Capsule) 100 mg PO BID [facility] Last Admin: 10/15/21 08:28 Dose: 100 mg Documented by: Hydroxyzine HCl (Hydroxyzine Hcl 25 Mg Tablet) 25 mg PO Q6H PRN PRN Reason: Anxiety Insulin Glargine (Insulin Glargine,Hum.Rec.Anlog 100 Unit/Ml 10 Ml Vial) 25 unit SUBCUT BEDTIME [facility] Last Admin: 10/14/21 21:49 Dose: Not Given Documented by: Insulin Human Lispro (Insulin Lispro 100 Unit/Ml 3 Ml Vial) 0 unit SUBCUT QIDACHS [facility]; Protocol Last Admin: 10/15/21 08:30 Dose: Not Given Documented by: Lisinopril (Lisinopril 40 Mg Tablet) 40 mg PO DAILY [facility]; Protocol Last Admin: 10/15/21 08:28 Dose: 40 mg Documented by: Loperamide HCl (Loperamide Hcl 2 Mg Capsule) 2 mg PO Q4H PRN PRN Reason: Diarrhea Last Admin: 09/18/21 07:42 Dose: 2 mg Documented by: Magnesium Hydroxide (Milk Of Magnesia 30 Ml Oral.Susp) 30 ml PO DAILY PRN PRN Reason: Constipation Last Admin: 10/09/21 10:11 Dose: 30 ml Documented by: Metformin HCl (Metformin Hcl 1,000 Mg Tablet) 1,000 mg PO BIDWM [facility] Last Admin: 10/15/21 08:28 Dose: 1,000 mg Documented by: Metoprolol Tartrate (Metoprolol Tartrate 100 Mg Tablet) 100 mg PO BID [facility]; Protocol Last Admin: 10/15/21 08:28 Dose: 100 mg Documented by: Oxybutynin Chloride (Oxybutynin Chloride Er 5 Mg Tab.Er.24) 5 mg PO DAILY [facility] Last Admin: 10/15/21 08:28 Dose: 5 mg Documented by: Perphenazine (Perphenazine 8 Mg Tablet) 8 mg PO BID [facility] Last Admin: 10/15/21 08:28 Dose: 8 mg Documented by: Polyethylene Glycol (Polyethylene Glycol 3350 17 Gm Powd.Pack) 17 gm PO BEDTIME [facility] Last Admin: 10/14/21 20:59 Dose: 17 gm Documented by: Trazodone HCl (Trazodone Hcl 50 Mg Tablet) 50 mg PO BEDTIME PRN PRN Reason: Insomnia Allergies Allergies Allergy/AdvReac Type Severity Reaction Status Date / Time Sulfa (Sulfonamide Allergy Unknown UNKNOWN Verified 09/15/21 23:47 Antibiotics) [SULFA (SULFONAMIDE ANTIBIOTICS)] Assessment & Plan Assessment & Plan (1) Schizophrenia: Status: Acute Code(s): F20.9 - Schizophrenia, unspecified Plan The patient is a 56-year-old female with a long history of schizophrenia, admitted for exacerbation of psychosis. She was restarted on her medications and for perphenazine was slightly increased and Depakote adjusted accordingly. Plan 1. Continue same medications. 2. Wait for placement I spent __20____ minutes with the patient and/or on the patient floor today, greater than?50% of which was spent counseling/coordinating care. Reason for contiued inpatient stay Substantial Risk for: inability to function, rapid decompensation and med/psych decompensation
[2021-10-15 10:43] LABS: COVID-19 Test Negative (Negative)
[2021-10-15 11:34] LABS: Influenza A PCR NEGATIVE (Negative); Influenza B PCR NEGATIVE (Negative); Resp Syncy Virus RNA Qual PCR NEGATIVE (Negative); SARS COV2 PCR INHOUSE NEGATIVE (Negative)
[2021-10-15 11:38] LABS: Glucose, Whole Blood 189 mg/dL (60-115)
[2021-10-15 16:37] LABS: Glucose, Whole Blood 125 mg/dL (60-115)
[2021-10-15 19:31] VITALS: BP 192/82; PULSE 107; RESP 16; TEMP 36.4; O2SAT 98
[2021-10-15] MEDS: Benztropine Mesylate 0.5 MG TABLET PO (20:57)
[2021-10-15] MEDS: cloZAPine 100 MG TABLET 300 MG PO (20:57)
[2021-10-15] MEDS: Divalproex Sodium ER 500 MG TAB.ER.24H 1000 MG PO (20:57)
[2021-10-15] MEDS: polyethylene glycoL 3350 17 GM POWD.PACK PO (20:59)
[2021-10-15 21:22] LABS: Glucose, Whole Blood 147 mg/dL (60-115)
[2021-10-16 07:48] LABS: Glucose, Whole Blood 126 mg/dL (60-115)
--- NOTE | 2021-10-16 08:09 | P.PNPSI_ITS ---
Subjective Subjective Date of Service: 10/16/21 Reason For Visit: schizophrenia Subjective Notes: Conditional Voluntary Interim History: The nursing staff reported the patient has been in her room most of the time she denies suicidal ideation. On interview the patient reported that she is feeling fine, happty and she is very excited to be discharged tomorrow. Mental Status Exam Mental Status Exam Patient Appearance: Well Grooomed Patient Orientation: Person and Situation Level of Consciousness: Awake Patient Behavior: Cooperative Mood Description: Withdrawn Affect Description: Labile Ability to Follow Directions: Good Speech Pattern: Clear Memory Description: Intact Hallucinations: Auditory Delusions: Paranoid Ideation Thought Process: Distracted Thought Content: positive for [place] and positive for Circumstantial Judgement: Fair Diagnostics Vital Signs (24Hr): Vital Signs - 24 hr 10/15/21 19:31 Temperature 97.5 F Pulse Rate 107 H Respiratory Rate 16 Blood Pressure 192/82 H Pulse Oximetry 98 BMI result Body Mass Index 35.0 Labs Results: 10/06/21 07:03 10/09/21 08:05 Labs: Laboratory Results - last 48 hr 10/14/21 10/14/21 10/14/21 11:37 16:34 20:50 POC Glucose 99 141 H 170 H COVID-19 ([facility]) COVID-19 Clin Com Influenza Type A (PCR) Influenza Type B (PCR) RSV RNA Qual (PCR) SARS-CoV-2 RNA (RT-PCR) 10/15/21 10/15/21 10/15/21 07:41 10:20 10:20 POC Glucose 111 COVID-19 ([facility]) Negative COVID-19 Clin Com See Note Influenza Type A (PCR) NEGATIVE Influenza Type B (PCR) NEGATIVE RSV RNA Qual (PCR) NEGATIVE SARS-CoV-2 RNA (RT-PCR) NEGATIVE 10/15/21 10/15/21 10/15/21 11:32 16:32 20:55 POC Glucose 189 H 125 H 147 H COVID-19 ([facility]) COVID-19 Clin Com Influenza Type A (PCR) Influenza Type B (PCR) RSV RNA Qual (PCR) SARS-CoV-2 RNA (RT-PCR) 10/16/21 07:45 POC Glucose 126 H COVID-19 ([facility]) COVID-19 Clin Com Influenza Type A (PCR) Influenza Type B (PCR) RSV RNA Qual (PCR) SARS-CoV-2 RNA (RT-PCR) Medications Medications Current Medications Acetaminophen (Acetaminophen 325 Mg Tablet) 650 mg PO Q6H PRN PRN Reason: Headache/Pain Mild Scale (1-3) Al Hydroxide/Mg Hydroxide (Magnesium Hydrox/Alum Hydrox 30 Ml Oral.Susp) 30 ml PO Q6H PRN PRN Reason: Heartburn/Nausea Aspirin (Aspirin Enteric Coated 81 Mg Tablet.) 81 mg PO DAILY [facility] Last Admin: 10/15/21 08:28 Dose: 81 mg Documented by: Atorvastatin Calcium (Atorvastatin Calcium 20 Mg Tablet) 20 mg PO DAILY [facility] Last Admin: 10/15/21 08:28 Dose: 20 mg Documented by: Benztropine Mesylate (Benztropine Mesylate 0.5 Mg Tablet) 0.5 mg PO BEDTIME [facility] Last Admin: 10/15/21 20:57 Dose: 0.5 mg Documented by: Clozapine (Clozapine 100 Mg Tablet) 300 mg PO BEDTIME [facility] Last Admin: 10/15/21 20:57 Dose: 300 mg Documented by: Divalproex Sodium (Divalproex Sodium Er 500 Mg Tab.Er.24h) 1,000 mg PO BEDTIME [facility] Last Admin: 10/15/21 20:57 Dose: 1,000 mg Documented by: Docusate Sodium (Docusate Sodium 100 Mg Capsule) 100 mg PO BID [facility] Last Admin: 10/15/21 20:58 Dose: 100 mg Documented by: Hydroxyzine HCl (Hydroxyzine Hcl 25 Mg Tablet) 25 mg PO Q6H PRN PRN Reason: Anxiety Insulin Glargine (Insulin Glargine,Hum.Rec.Anlog 100 Unit/Ml 10 Ml Vial) 25 unit SUBCUT BEDTIME [facility] Last Admin: 10/15/21 21:06 Dose: Not Given Documented by: Insulin Human Lispro (Insulin Lispro 100 Unit/Ml 3 Ml Vial) 0 unit SUBCUT QIDACHS [facility]; Protocol Last Admin: 10/15/21 21:05 Dose: Not Given Documented by: Lisinopril (Lisinopril 40 Mg Tablet) 40 mg PO DAILY [facility]; Protocol Last Admin: 10/15/21 08:28 Dose: 40 mg Documented by: Loperamide HCl (Loperamide Hcl 2 Mg Capsule) 2 mg PO Q4H PRN PRN Reason: Diarrhea Last Admin: 09/18/21 07:42 Dose: 2 mg Documented by: Magnesium Hydroxide (Milk Of Magnesia 30 Ml Oral.Susp) 30 ml PO DAILY PRN PRN Reason: Constipation Last Admin: 10/09/21 10:11 Dose: 30 ml Documented by: Metformin HCl (Metformin Hcl 1,000 Mg Tablet) 1,000 mg PO BIDWM [facility] Last Admin: 10/15/21 17:13 Dose: 1,000 mg Documented by: Metoprolol Tartrate (Metoprolol Tartrate 100 Mg Tablet) 100 mg PO BID [facility]; Protocol Last Admin: 10/15/21 20:58 Dose: 100 mg Documented by: Oxybutynin Chloride (Oxybutynin Chloride Er 5 Mg Tab.Er.24) 5 mg PO DAILY [facility] Last Admin: 10/15/21 08:28 Dose: 5 mg Documented by: Perphenazine (Perphenazine 8 Mg Tablet) 8 mg PO BID [facility] Last Admin: 10/15/21 20:58 Dose: 8 mg Documented by: Polyethylene Glycol (Polyethylene Glycol 3350 17 Gm Powd.Pack) 17 gm PO BEDTIME [facility] Last Admin: 10/15/21 20:59 Dose: 17 gm Documented by: Trazodone HCl (Trazodone Hcl 50 Mg Tablet) 50 mg PO BEDTIME PRN PRN Reason: Insomnia Allergies Allergies Allergy/AdvReac Type Severity Reaction Status Date / Time Sulfa (Sulfonamide Allergy Unknown UNKNOWN Verified 09/15/21 23:47 Antibiotics) [SULFA (SULFONAMIDE ANTIBIOTICS)] Assessment & Plan Assessment & Plan (1) Schizophrenia: Status: Acute Code(s): F20.9 - Schizophrenia, unspecified Plan The patient is a 56-year-old female with a long history of schizophrenia, admitted for exacerbation of psychosis. She was restarted on her medications and for perphenazine was slightly increased and Depakote adjusted accordingly. Plan 1. Continue same medications. 2. Wait for placement I spent ___20___ minutes with the patient and/or on the patient floor today, greater than?50% of which was spent counseling/coordinating care. Reason for contiued inpatient stay Substantial Risk for: inability to function, rapid decompensation and med/psych decompensation
[2021-10-16 08:16] VITALS: BP 162/77; PULSE 76; RESP 16; TEMP 35.8; O2SAT 98
[2021-10-16] MEDS: lisinopriL 40 MG TABLET PO (08:17)
[2021-10-16] MEDS: Aspirin Enteric Coated 81 MG TABLET.DR PO (08:17)
[2021-10-16] MEDS: Atorvastatin Calcium 20 MG TABLET PO (08:18)
[2021-10-16] MEDS: Perphenazine 8 MG TABLET PO ×2 (08:18→20:09)
[2021-10-16] MEDS: Docusate Sodium 100 MG CAPSULE PO ×2 (08:18→20:08)
[2021-10-16] MEDS: Metoprolol Tartrate 100 MG TABLET PO ×2 (08:18→20:09)
[2021-10-16] MEDS: Milk of Magnesia 30 ML ORAL.SUSP PO (08:28)
[2021-10-16] MEDS: metFORMIN HCl 1,000 MG TABLET 1000 MG PO (08:28)
[2021-10-16 09:25] LABS: Creatinine Clr Calc Pharmacy 99.2; Estimated Glomerular Filt Rate > 60
[2021-10-16 11:54] LABS: Glucose, Whole Blood 175 mg/dL (60-115)
[2021-10-16 16:34] LABS: Glucose, Whole Blood 173 mg/dL (60-115)
[2021-10-16 18:00] VITALS: BP 178/84; PULSE 76; RESP 18; TEMP 36.1; O2SAT 97
[2021-10-16] MEDS: Divalproex Sodium ER 500 MG TAB.ER.24H 1000 MG PO (20:08)
[2021-10-16] MEDS: Benztropine Mesylate 0.5 MG TABLET PO (20:08)
[2021-10-16] MEDS: cloZAPine 100 MG TABLET 300 MG PO (20:08)
[2021-10-16 20:17] LABS: Glucose, Whole Blood 212 mg/dL (60-115)
[2021-10-16] MEDS: Insulin Lispro 100 UNIT/ML 3 ML VIAL SUBCUT (20:25)
[2021-10-16] MEDS: Insulin Glargine,Hum.rec.anlog 100 UNIT/ML 10 ML VIAL 25 UNIT SUBCUT (20:27)
[2021-10-17 06:00] VITALS: BP 142/79; PULSE 76; RESP 16; O2SAT 95
--- NOTE | 2021-10-17 08:21 | PM.PSYDC ---
DS: Providers Provider Date of Service: 10/17/21 Date of admission: 09/15/21 23:29 Date of discharge: 10/17/21 Primary care physician: Gregoria Chu NP Consults: 09/15/21 23:26 Consult to Hospitalist Routine Consulting Provider: Hospitalist Reason For Exam: new admit from [facility] 09/18/21 10:58 Consult to Hospitalist Routine Consulting Provider: Hospitalist Reason For Exam: Management of DM, episodes of hypoglycemia DS: Diagnosis Discharge Diagnosis (1) Schizophrenia: Status: Acute DS: Medications Discharge Medications Home Medications: Home Medications Medication Instructions Recorded Confirmed aspirin 81 mg tablet,delayed 81 mg PO DAILY 09/16/21 09/16/21 release atorvastatin 20 mg tablet 20 mg PO DAILY 09/16/21 09/16/21 benztropine 0.5 mg tablet 0.5 mg PO BEDTIME 09/16/21 09/16/21 clozapine 200 mg tablet 300 mg PO BEDTIME 09/16/21 09/16/21 divalproex 500 mg PO BEDTIME 09/16/21 09/16/21 divalproex 250 mg tablet,extended 250 mg PO BEDTIME 09/16/21 09/16/21 release 24 hr insulin glargine 50 unit SUBCUT DAILY 09/16/21 09/16/21 lisinopril 40 mg tablet (Zestril) 40 mg PO DAILY 09/16/21 09/16/21 metformin 1,000 mg tablet 1,000 mg PO BID 09/16/21 09/16/21 metoprolol tartrate 100 mg PO BEDTIME 09/16/21 09/16/21 metoprolol tartrate 50 mg tablet 50 mg PO DAILY 09/16/21 09/16/21 oxybutynin chloride 5 mg tablet 5 mg PO DAILY 09/16/21 09/16/21 perphenazine 8 mg tablet 8 mg PO DAILY 09/16/21 09/16/21 polyethylene glycol 3350 17 gram 17 g PO DAILY 09/16/21 09/16/21 oral powder packet Mental Status Exam Mental Status Exam Patient Appearance: Well Grooomed Patient Orientation: Person Level of Consciousness: Awake Patient Behavior: Appropriate Mood Description: Withdrawn Affect Description: Constricted Patient Cognition Impaired: No Ability to Follow Directions: Good Speech Pattern: Clear Memory Description: Intact Hallucinations: Auditory Delusions: Paranoid Ideation Thought Process: Linear Thought Content: positive for [place] and positive for Poverty of Content Judgement: Fair Data Data Completed and Pending Completed studies during hospitalization [Text1]: 10/10/21 10/10/21 10/10/21 09:18 12:12 17:15 Absolute Neuts (auto) Creatinine Estim Creat Clear Calc Estimated GFR POC Glucose 227 H 209 H 84 COVID-19 ([facility]) COVID-19 Clin Com Influenza Type A (PCR) Influenza Type B (PCR) RSV RNA Qual (PCR) SARS-CoV-2 RNA (RT-PCR) 10/10/21 10/11/21 10/11/21 21:49 01:50 07:50 Absolute Neuts (auto) Creatinine Estim Creat Clear Calc Estimated GFR POC Glucose 117 H 116 H 87 COVID-19 ([facility]) COVID-19 Clin Com Influenza Type A (PCR) Influenza Type B (PCR) RSV RNA Qual (PCR) SARS-CoV-2 RNA (RT-PCR) 10/11/21 10/11/21 10/11/21 11:44 16:36 20:34 Absolute Neuts (auto) Creatinine Estim Creat Clear Calc Estimated GFR POC Glucose 164 H 159 H 135 H COVID-19 ([facility]) COVID-19 Clin Com Influenza Type A (PCR) Influenza Type B (PCR) RSV RNA Qual (PCR) SARS-CoV-2 RNA (RT-PCR) 10/12/21 10/12/21 10/12/21 08:17 11:28 16:46 Absolute Neuts (auto) Creatinine Estim Creat Clear Calc Estimated GFR POC Glucose 128 H 231 H 143 H COVID-19 ([facility]) COVID-19 Clin Com Influenza Type A (PCR) Influenza Type B (PCR) RSV RNA Qual (PCR) SARS-CoV-2 RNA (RT-PCR) 10/12/21 10/12/21 10/12/21 22:03 22:03 22:27 Absolute Neuts (auto) Creatinine Estim Creat Clear Calc Estimated GFR POC Glucose 126 H COVID-19 ([facility]) Negative COVID-19 Clin Com See Note Influenza Type A (PCR) NEGATIVE Influenza Type B (PCR) NEGATIVE RSV RNA Qual (PCR) NEGATIVE SARS-CoV-2 RNA (RT-PCR) NEGATIVE 10/13/21 10/13/21 10/13/21 07:57 08:09 12:42 Absolute Neuts (auto) 4.0 Creatinine Estim Creat Clear Calc Estimated GFR POC Glucose 95 143 H COVID-19 ([facility]) COVID-19 Clin Com Influenza Type A (PCR) Influenza Type B (PCR) RSV RNA Qual (PCR) SARS-CoV-2 RNA (RT-PCR) 10/13/21 10/13/21 10/14/21 16:28 20:18 07:57 Absolute Neuts (auto) Creatinine Estim Creat Clear Calc Estimated GFR POC Glucose 129 H 99 105 COVID-19 ([facility]) COVID-19 Clin Com Influenza Type A (PCR) Influenza Type B (PCR) RSV RNA Qual (PCR) SARS-CoV-2 RNA (RT-PCR) 10/14/21 10/14/21 10/14/21 11:37 16:34 20:50 Absolute Neuts (auto) Creatinine Estim Creat Clear Calc Estimated GFR POC Glucose 99 141 H 170 H COVID-19 ([facility]) COVID-19 Clin Com Influenza Type A (PCR) Influenza Type B (PCR) RSV RNA Qual (PCR) SARS-CoV-2 RNA (RT-PCR) 10/15/21 10/15/21 10/15/21 07:41 10:20 10:20 Absolute Neuts (auto) Creatinine Estim Creat Clear Calc Estimated GFR POC Glucose 111 COVID-19 ([facility]) Negative COVID-19 Clin Com See Note Influenza Type A (PCR) NEGATIVE Influenza Type B (PCR) NEGATIVE RSV RNA Qual (PCR) NEGATIVE SARS-CoV-2 RNA (RT-PCR) NEGATIVE 10/15/21 10/15/21 10/15/21 11:32 16:32 20:55 Absolute Neuts (auto) Creatinine Estim Creat Clear Calc Estimated GFR POC Glucose 189 H 125 H 147 H COVID-19 ([facility]) COVID-19 Clin Com Influenza Type A (PCR) Influenza Type B (PCR) RSV RNA Qual (PCR) SARS-CoV-2 RNA (RT-PCR) 10/16/21 10/16/21 10/16/21 07:45 08:47 11:50 Absolute Neuts (auto) Creatinine 0.82 Estim Creat Clear Calc 99.2 Estimated GFR > 60 POC Glucose 126 H 175 H COVID-19 ([facility]) COVID-19 Clin Com Influenza Type A (PCR) Influenza Type B (PCR) RSV RNA Qual (PCR) SARS-CoV-2 RNA (RT-PCR) 10/16/21 10/16/21 16:31 20:06 Absolute Neuts (auto) Creatinine Estim Creat Clear Calc Estimated GFR POC Glucose 173 H 212 H COVID-19 ([facility]) COVID-19 Clin Com Influenza Type A (PCR) Influenza Type B (PCR) RSV RNA Qual (PCR) SARS-CoV-2 RNA (RT-PCR) DS: Summary Hospital Course Hospital Course: The patient was admitted for exacerbation of psychosis and disorganized behavior. Please see HPI of the admission note for further details. We continue with his list of medications as per the medication reconciliation provided by [facility] another ancillary services. On intake, the patient was pleasant, but very paranoid against her family and the residence around her building. Since there was a question about compliance with continuing the same dose but her symptoms were the same. We increase perphenazine up to 8 mg p.o. b.i.d. and kept her Clozaril at the scheduled dose. We had several meetings with [facility], manager market intelligence's from other not for profit and her treatment plan and so far the patient was not initially at her baseline. Her psychosis improved, with has several family meetings and the patient went back to her baseline. The patient did not want to go back to her apartment and she is fully aware that if she relinquished that, she will lose it and she will not get it back again. She wanted to go back to an assisted living facility. She was transferred to [facility] for continuation of care. At the moment of the discharge the patient was at baseline with no safety concerns Time spent discussing smoking cessation with patient: 3 to 10 minutes Status at Discharge Cognitive/behavioral status at discharge: At baseline Functional status at discharge: independent ambulation Overall status at discharge: patient is back to baseline Time Spent with Patient Time attestation: Total time spent providing and/or coordinating discharge services: Time spent: Less than 30 minutes Discharge Plan Discharge Patient Disposition: er [facility] Discharge Diagnosis: Schizophrenia Referrals: Dr Gonzalez Vasquez [place] [facility] [Other] - 11/02/21 9:00 am (Appt scheduled for November 02, 2021 @ 9:00 AM IN OFFICE with Dr. Vasquez) Gregoria Veras [facility] [Other] - 10/17/21 (You [facility] clinician and outreach team members will be available to you ad their services will resume upon discharge. ) [facility] (Your [facility] major case detectivewarranty manager to return upon discharge.) [facility] [Other] - 10/17/21 (Transfer to [facility] and follow up with outpatient services. ) Gregoria Chu NP [Primary Care Provider] - 1 Week Discharge Medications: New atorvastatin 20 mg Tablet 20 mg PO DAILY 30 Days Qty: 30 0RF benztropine 0.5 mg Tablet 0.5 mg PO BEDTIME 30 Days Qty: 30 0RF polyethylene glycol 3350 17 gram Powder In Packet 17 g PO BEDTIME 30 Days Qty: 30 0RF clozapine 100 mg Tablet 300 mg PO BEDTIME 30 Days Qty: 90 0RF metoprolol tartrate 100 mg Tablet 100 mg PO BID 30 Days Qty: 60 0RF Protocol: Hold for SBP/HR < HOLD for SBP < : 90 HOLD for HR < : 60 aspirin 81 mg Tablet,Delayed Release (Dr/Ec) 81 mg PO DAILY 30 Days Qty: 30 0RF metformin 1,000 mg Tablet 1,000 mg PO BIDWM 30 Days Qty: 60 0RF divalproex 500 mg Tablet Extended Release 24 Hr 1,000 mg PO BEDTIME 30 Days Qty: 60 0RF docusate sodium 100 mg Capsule 100 mg PO BID 30 Days Qty: 60 0RF oxybutynin chloride 5 mg Tablet Extended Release 24 Hr 5 mg PO DAILY 30 Days Qty: 30 0RF perphenazine 8 mg Tablet 8 mg PO BID 30 Days Qty: 60 0RF lisinopril 40 mg Tablet 40 mg PO DAILY 30 Days Qty: 30 0RF Protocol: Hold for SBP< HOLD for SBP < : 90 Discontinued metoprolol tartrate 100 mg PO BEDTIME 0RF perphenazine 8 mg Tablet 8 mg PO DAILY 0RF oxybutynin chloride 5 mg Tablet 5 mg PO DAILY 0RF atorvastatin 20 mg Tablet 20 mg PO DAILY 0RF benztropine 0.5 mg Tablet 0.5 mg PO BEDTIME 0RF polyethylene glycol 3350 17 gram Powder In Packet 17 g PO DAILY 0RF aspirin 81 mg Tablet,Delayed Release (Dr/Ec) 81 mg PO DAILY 0RF metformin 1,000 mg Tablet 1,000 mg PO BID 0RF metoprolol tartrate 50 mg Tablet 50 mg PO DAILY 0RF lisinopril [Zestril] 40 mg Tablet 40 mg PO DAILY 0RF divalproex 250 mg Tablet Extended Release 24 Hr 250 mg PO BEDTIME 0RF clozapine 200 mg Tablet 300 mg PO BEDTIME 0RF divalproex 500 mg PO BEDTIME 0RF insulin glargine 50 unit subcut DAILY 0RF Discharge Orders: Discharge Order (Routine); Ordered 10/17/21 Ordered By: Victoriano Mello Diet: advance to usual diet Activity on Discharge: As tolerated Stand Alone Forms: Patient Portal Discharge page Care Plan Goals: Care plan goals achieved on this admission Health Concerns: Continue treatment with Primary care physician as an outpatient Plan of Treatment: Continue treatment as an outpatient, follow [facility] case managing another ancillary services. Assessment: Chronically mentally ill patient with a long history of schizophrenia who was admitted for exacerbation of paranoia, with good improvement with the titration of perphenazine. The patient will be discharged to the community as per discharge planning of [facility] and other agencies involved in her care. At this moment no safety concerns
[2021-10-17] MEDS: Docusate Sodium 100 MG CAPSULE PO (08:27)
[2021-10-17] MEDS: lisinopriL 40 MG TABLET PO (08:27)
[2021-10-17] MEDS: metFORMIN HCl 1,000 MG TABLET 1000 MG PO (08:28)
[2021-10-17] MEDS: Perphenazine 8 MG TABLET PO (08:28)
[2021-10-17] MEDS: Metoprolol Tartrate 100 MG TABLET PO (08:28)
[2021-10-17] MEDS: Atorvastatin Calcium 20 MG TABLET PO (08:28)
[2021-10-17] MEDS: Aspirin Enteric Coated 81 MG TABLET.DR PO (08:28)
--- NOTE | 2021-10-17 09:46 | PC.NURSE ---
Patient is alert and oriented x3, pleasant, calm, cooperative and med compliant. Patient aware of discharge today to [facility], reports readiness and expresses excitement towards discharge and new facility. Discharge documentation and education provided to patient. Nurse to nurse report provided to [facility]. Patient ambulates independently w/walker and appears hemodynamically stable as evidenced by stable vital signs and patient presentation.
== END 2021-10-17 11:40 | DRG 885 ==
PROVIDERS: Psychiatry & Neurology Psychiatry; Registered Nurse; Admitting Provider Psychiatry & Neurology Psychiatry; PCP Nurse Practitioner Family; Visit Provider Psychiatry & Neurology Psychiatry
DX: F20.9 Schizophrenia, unspecified (principal); I10 Essential (primary) hypertension; L89.302 Pressure ulcer of unspecified buttock, stage 2; E11.649 Type 2 diabetes mellitus with hypoglycemia without coma; E78.5 Hyperlipidemia, unspecified; Z20.822 Contact with and (suspected) exposure to COVID-19; Z87.891 Personal history of nicotine dependence; Z88.2 Allergy status to sulfonamides; Z79.899 Other long term (current) drug therapy
CPT/HCPCS: 0241U; 36415; 80048; 80061; 80076; 80164; 82565; 82607; 82746; 82947; 83036; 83735; 84443; 85025; 85048; 87635